=== PATIENT | male | born 1975 | race Caucasian/White ===

== ENCOUNTER → 2025-02-03 | Outpatient (CLI) | payer BC, SELFPAY ==
--- NOTE | 2025-02-03 | LES_PTH ---
PATIENT: MC JORGE LOC: [facility] U#:[id number] AGE/SX: 49/M ROOM: RE02/03/[address]: Dr. Toby Arita MD : 1975 BED: DIS: 02/03/2025 SPEC #: [id number] RECD: 02/03/25 12:51 STATUS: ANTELMO TASH #: [id number] VICKEY: 02/03/25 00:[address]: Toby Arita DEPT: SURGICAL PATHOLOGY RECD BY: Gen Lopez Tissues: A - Shoulder, NOS Procedures: Immunohistochemical Stains Surgery Specimen Level IV IHC Stain ADDITIONAL HEADER OPERATION: Right shoulder excision PRE-OP DIAGNOSIS: Melanoma insitu TISSUE SUBMITTED: A- Right shoulder melanoma insitu *1 stitch- proximal neck, 2 stitches- 3o'clock, 3 stitches - 6o'clock* MICROSCOPIC DIAGNOSIS A. Skin, right shoulder, excision: - Atypical melanocytic hyperplasia, surgical margins free. - Scar and associated changes consistent with a previous surgical procedure. - IHC for Melan-A is negative for invasive tumor. COMMENT Selected slides/images were reviewed in intradepartmental consultation by Dr Monalisa Quijano (dermatopathology division, [facility]). MICROSCOPIC DESCRIPTION Slides are reviewed. ?All matched controls reacted appropriately. These tests were developed and their performance characteristics determined by [facility]. They may not have been cleared or approved by the [place] Food and Drug Administration. The FDA has determined that such clearance or approval is not necessary.? The above immunohistochemical?markers and/or special stains have been reviewed by the Pathologist. GROSS DESCRIPTION A. Received in formalin labeled with the patient's name and date of . Designated as right shoulder melanoma in situ is a 4.2 x 2.2 cm garcia skin ellipse excised to a maximum depth of 1.3 cm and with orientation as follows: Single suture: designated as proximal/toward neck which is redesignated as 12:00 per the claudiaing PA.Double suture: designated as 3:00Triple suture: designated as 6:00 There is a 1.4 x 0.7 cm garcia-pink, slightly raised, firm lesion located the following distances from the margins:12:00: 0.8 cm 3:00: 1.3 cm 6:00: 0.9 cm9:00: 1.5 cmDeep: 1.0 cm Ink joya: 12:00 to 3:00: Green3:00 to 6:00: Yellow6:00 to 9:00: Orange9:00 to 12:00: BlueDeep: Black The specimen is serially sectioned from 3:00 to 9:00 revealing an apparent mass extends into the underlying skin to a depth of approximately 0.4 cm. There are focal areas of apparent congestion however, no deep definitive lesions are grossly appreciated. The specimen is entirely submitted, sequentially from 3:00 to 9:00 in 8 cassettes. [place] 02/04/2025PT:[id number]
--- OUTSIDE RECORDS SUMMARY | 2025-02-03 21:29 | XMS RPT_ITS | CCD ---
Author Organization [facility] Care Team Providers Care Back Shoe Worker Name Role Phone Aubrey Ulloa MD Unavailable ROBERTHDAMASO RYLEY Unavailable Unavailable Tyrese Sweet Attending Unavailable Narayan Roberto Attending Unavailable Lynette Figueroa Primary Care Unavailable Jesu Bonilla Attending Unavailable Lynette Figueroa Primary Care Unavailable Lynette Figueroa (Dermatology Nurse) Primary Care Provider [phone] Fernie León Unavailable Logan Stock Unavailable Lynette Figueroa Primary Care Provider Lynette Figueroa (Dermatology Nurse) Primary Care Provider Fernie León Unavailable Logna Stock MD Unavailable HENRY ACOSTA, LYNETTE Primary [facility] Unavailollie RAZO MD, CESAR Attending Unavailollie ACOSTA, [facility] Primary [facility] Unavaila guille RAZO MD, CESAR Attending Unavaila guille ACOSTA, [facility] Primary Care Unavailollie RAZO MD, CESAR Attending UnavailLYNETTE Frankel (RELATIONS MGR) Primary Care UnavailCHARANJIT Mars Attending Unavailable LYNETTE FIGUEROA (RELATIONS MGR) Primary Care UnavailCANDICE Wells Attending Unavailable Dr. Toby Arita MD Attending Provider Toby Arita Attending Unavailable Allergies Allergy Classification Reported Allergen(s) Allergy Type Date of Onset Reaction(s) Facility (4 sources) Acetaminophen / HYDROcodone; Translations: [HYDROCODONE-ACET AMINOPHEN] Drug Allergy 1 Nausea Only, Other (See Comments), GI Upset, Other: See Comments [facility] Work Phone: (2 sources) Acetaminophen Drug Allergy 5 Nausea [facility] (2 sources) HYDROcodone Drug Allergy 5 Nausea [facility] (1 source) Acetaminophen Drug Allergy 5 [facility] (1 source) HYDROcodone Drug Allergy 5 [facility] Medications Current Medications Medication Drug Class(es) Dates Sig (Normalized) Sig (Original) acetaminophen 500 mg oral tablet (2 sources) Start: 08-17-2020 acetaminophen (TYLENOL) tablet 1,000 mg Start: 10-18-2017 TYLENOL 325 MG CAPS take 1 to 2 tablets every 6 hours as needed ACETAMINOPHEN [id number] Aubrey Ulloa MD amoxicillin 875 mg / clavulanate 125 mg oral tablet (1 source) Penicillin-class Antibacterial Start: 04-30-2023 End: 05-10-2023 take 1 tablet by mouth every twelve hours amoxicillin-clavulanate potassium (AUGMENTIN) 875-125 mg per tablet Indications: Acute non-recurrent pansinusitis Take 1 tablet by mouth every 12 hours for 10 days. 20 tablet 0 04/30/2023 05/10/2023 Active Comment on above: Take 1 tablet by mouth every 12 hours fo r 10 days. aspirin 81 mg delayed release oral tablet (6 sources) Nonsteroidal Anti-inflammatory Drug Start: 08-16-2020 take 81 mg by mouth once daily 81 mg, Oral, DAILY, First dose on Sun08/16/20 at 0900 Start: 10-18-2017 ASPIRIN 81 MG TABS take 1 tablet daily ASPIRIN [id number] Aubrey Ulloa MD Comment on above: Take 81 mg by mouth once daily. atorvastatin 10 mg oral tablet (8 sources) HMG-CoA Reductase Inhibitor Start: 5 take 1 tablet by mouth once daily Atorvastatin 10 mg tablet Active 10 mg PO daily January 01, 2025 12:00am Start: 11-15-2016 take 1 tablet by aislinn th once daily atorvastatin (LIPITOR) 10 mg tablet Indications: Hyperlipidemia, unspecified hyperlipidemia type Take 1 tablet by mouth once daily. 0 11/15/2016 Active Comment on above: Take 1 tablet by aislinn th once daily. cetirizine hydrochloride 10 mg oral tablet (8 sources) Histamine-1 Receptor Antagonist Start: take 1 tablet by mouth once daily as needed Cetirizine (Zyrtec) 10 mg tablet Active 10 mg PO daily as needed January 01, 2025 12:00am Start: 10-18-2017 take 10 mg by mouth once daily 10 mg, Oral, DAILY, First dose on Sun08/16/20 at 0900 Comment on above: Take 10 mg by mouth once daily. cholecalciferol 0.125 mg oral capsule (7 sources) Vitamin D Start: 01-02-20 take 1 capsule by mouth once daily Cholecalciferol (Vitamin D3) 125 mcg (5,000 unit) capsule Active 125 ug PO daily January 01, 2025 12:00am Start: 10-18-2017 EQL VITAMIN D3 5000 UNIT CAPS take 1 capsule daily CHOLECALCIFEROL [id number] Aubrey Ulloa MD take 1 tablet by aislinn th once daily cholecalciferol (VITAMIN D3) 5,000 unit tab Indications: Vitamin D deficiency Take 1 tablet by mouth once daily. 0 Active Cholecalciferol (VITAMIN D3) 5000 UNITS TABS Take by mouth 0 Active Comment on above: Take 1 tablet by aislinn th once daily. clomiPHENE citrate 50 mg oral tablet (8 sources) Estrogen Agonist/Antagonist Start: 01-01-2025 Clomiphene Citrate (Clomid) 50 mg tablet Active 25 mg PO daily January 01, 2025 12:00am Start: 08-16-2020 take 25 mg by mouth once daily 25 mg, Oral, DAILY, First dose on Sun08/16/20 at 0900 Patient's own medication identified by amn. Start: 10-18-2017 CLOMIPHENE CIT RATE 50 MG TABS take half a tablet daily CLOMIPHENE CITRATE [id number] Aubrey Ulloa MD Start: 01-04-2017 take 1 tablet by aislinn th once daily clomiPHENE (SEROPHENE) 50 mg tablet Indications: Hypogonadotropic hypogonadism (HCC) Take 1 tablet by mouth once daily. 60 tablet 1 01/04/2017 Active clomiPHENE (CLOM ID) 50 MG tablet Take 25 mg by mouth daily 0 Active Comment on above: Take 1 tablet by aislinn th once daily. clotrimazole 10 mg oral lozenge (1 source) Azole Antifungal Start: 12-19-2022 End: 01-02-2023 clotrimazole (MYCELEX) 10 mg kim Indications: Oropharyngeal candidiasis Use 1 Kim as instructed five times daily for 14 days. 70 tablet 0 12/19/2022 01/02/2023 Active Comment on above: Use 1 Kim as inst ructed five times daily for 14 days. 0.4 ml enoxaparin sodium 100 mg/ml prefilled syringe (2 sources) Low Molecular Weight Heparin Start: 08-24-2020 End: 09-07-2020 enoxaparin (LOVENOX) 40 MG/0.4ML injection Inject 0.4 mLs into the skin daily for 14 days 20 Syringe 3 08/24/2020 09/07/2020 Active Start: 08-19-2020 enoxaparin (LO VENOX) injection 40 mg ibuprofen 200 mg oral tablet (2 sources) Nonsteroidal Anti-inflammatory Drug Start: 08-22-2020 take 1 tablet by mouth every six hours as needed for pain ibuprofen (ADVIL;MOTRIN) 200 MG tablet Take 1 tablet by mouth every 6 hours as needed for Pain 120 tablet 3 08/23/2020 Active melatonin 5 mg oral tablet (2 sources) Start: 08-22-2020 melatonin tablet 10 mg Start: 08-18-2020 End: 08-22-2020 melatonin tablet 3 mg 1 ml morphine sulfate 4 mg/ml injection (1 source) Opioid Agonist Start: 08-16-2020 morphine sulfa te (PF) injection 2 mg oxyCODONE hydrochloride 5 mg oral tablet (2 sources) Opioid Agonist Start: 08-17-2020 End: 08-26-2020 take 1 tablet by mouth every four hours as needed for pain oxyCODONE (ROXICODONE) 5 MG immediate release tablet Indications: Closed fracture dislocation of left ankle, initial encounter Take 1 tablet by mouth every 4 hours as needed for Pain for up to 3 days. 20 tablet 0 08/23/2020 08/26/2020 Active pantoprazole 40 mg delayed release oral tablet (7 sources) Proton Pump Inhibitor Start: 01-01-2025 take 1 tablet by mouth once daily Pantoprazole 40 mg tablet,delayed release (DR/EC) Active 40 mg PO daily January 01, 2025 12:00am Start: 09-08-2022 pantoprazole D R (PROTONIX) 40 mg tablet Start: 08-16-2020 pantoprazole ( PROTONIX) tablet 40 mg Start: 10-18-2017 PROTONIX 40 MG TBEC take 1 tablet daily PANTOPRAZOLE SODIUM [id number] Aubrey Ulloa MD polyethylene glycol 3350 36356 mg powder for oral solution (1 source) Osmotic Laxative Start: 08-16-2020 17 g, Oral, D AILY PRN, Constipation, Starting Sun08/16/20 at 0112 First line therapy for constipation Promethazine (1 source) Phenothiazine Start: 08-16-2020 promethazine ( PHENERGAN) tablet 12.5 mg 3 ml sodium chloride 9 mg/ml injection (2 sources) Start: 08-16-2020 10 mL, Intrave nous, EVERY 12 HOURS SCHEDULED (2 times per day), First dose on Sun08/16/20 at 0900 Start: 08-16-2020 take 10 mL intraveno us route once as needed 10 mL, Intravenous, PRN, Line Care, After every IV line use, Starting Sun08/16/20 at 0112 Vitamin B Complex capsule (2 sources) Start: 01-01-2025 Vitamin B Comp dinah capsule Active 1 NMA PO daily January 01, 2025 12:00am Completed/Discontinued Medications Medication Drug Class(es) Dates Sig (Normalized) Sig (Original) acetaminophen 325 mg / HYDROcodone bitartrate 5 mg oral tablet (1 source) Opioid Agonist Start: 08-16-2020 End: 08-17-2020 HYDROcodone-acetami nophen (NORCO) 5-325 MG per tablet 1 tablet ceFAZolin (ANCEF) 3,000 mg in dextrose 5 % 100 mL IVPB (1 source) Start: 08-18-2020 End: 08-19-2020 3,000 mg, Intravenous, EVERY 8 HOURS, 2 doses, First dose on Sun08/18/20 at 1600, Last dose on Sun08/19/20 at 0000 coenzyme q10 10 mg oral capsule (5 sources) Start: 10-18-2017 COQ-10 10 MG CAPS take 1 capsule daily COENZYME Q10 [id number] Aubrey Ulloa MD coenzyme Q10 (CO ENZYME Q-10) 100 mg cap capsule Take 400 mg by mouth once daily. 0 Active Comment on above: Take 400 mg by mouth once daily. 2 ml fentaNYL 0.05 mg/ml injection (2 sources) Opioid Agonist Start: 08-15-19 End: 08-15-19 fentaNYL (SUBLIMAZE) injection 50 mcg fluticasone propionate 0.05 mg/actuat metered dose nasal spray (3 sources) Corticosteroid take 1 spray(s) nasal route twice daily fluticasone (FLONASE) 50 mcg/actuation nasal spray Use 1 Loyal in each nostril twice daily. 0 Active Comment on above: Use 1 Loyal in each nostril twice daily. folic acid 0.8 mg oral capsule (5 sources) Start: 10-19-19 FOLIC ACID 0.8 MG CAPS take 1 capsule daily FOLIC ACID [id number] Aubrey Ulloa MD Comment on above: Take 0.8 mg by mouth once daily. 10 ml lidocaine hydrochloride 10 mg/ml injection (1 source) Antiarrhythmic, Amide Local Anesthetic Start: 08-15-19 End: 08-17-19 lidocaine 1 % injection 20 mL 1 ml LORazepam 2 mg/ml injection (1 source) Benzodiazepine Start: 08-19-19 End: 08-19-19 LORazepam (ATIVAN) injection 0.5 mg 2 ml midazolam 1 mg/ml injection (1 source) Benzodiazepine Start: 08-19-19 End: 08-19-19 midazolam (VERSED) injection 2 mg prasterone 50 mg oral tablet (4 sources) take 1 tablet by mouth once daily prasterone, dhea, (DHEA) 50 mg tab Take 50 mg by mouth once daily. 0 Active Comment on above: Take 50 mg by mouth once daily. PRASTERONE (DHEA) CAPS (1 source) Start: 10-19-19 DHEA 50 CAPS take 1 capsule daily PRASTERONE (DHEA) CAPS [id number] Aubrey Ulloa MD 20 ml propofol 10 mg/ml injection (2 sources) General Anesthetic Start: 08-15-19 End: 08-15-19 propofol injection Start: 08-15-2020 End: 08-15-2020 propofol 200 MG/20ML injecti on vitamin B 12 (5 sources) Vitamin B12 Start: 10-18-2017 B-12 5000 MCG CAPS take 1 capsule daily CYANOCOBALAMIN [id number] Aubrey Ulloa MD take 1 tablet by mouth once david y cyanocobalamin, vitamin B-12, 5,000 mcg subl Take 1 tablet by mouth once daily. 0 Active Cyanocobalamin ( VITAMIN B 12 PO) Take by mouth 0 Active Comment on above: Take 1 tablet by aislinn th once daily. Problems Active Problems Problem Classification Problem Date Documented Da te Episodic/Chronic Acquired foot deformities (1 source) Other acquired deformities of right foot; Translations: [Other acquired deformities of right foot] Onset: 10-18-2017 10-18-2017 Episodic Disorders of lipid metabolism (3 sources) Hyperlipidemia; Translations: [Hyperlipidemia, unspecified] 01-04-2017 Chronic Essential hypertension (1 source) Hypertensive disorder; Translations: [Hypertension] 11-10-2016 Chronic Fracture of lower limb (2 sources) Closed fracture dislocation of ankle joint; Translations: [Closed trimalleolar fracture] 08-23-2020 Episodic Joint disorders and dislocations; trauma-related (1 source) Closed traumatic dislocation ankle joint; Translations: [Dislocation of ankle, left, closed, initial encounter] Onset: 08-23-2020 08-23-2020 Episodic Melanomas of skin (2 sources) Melanoma in situ, unspecified; Translations: [Melanoma in situ] 01-01-2025 Chronic Comment on above: Right neck/shoulder Other congenital anomalies (1 source) Pes cavus; Translations: [Congenital pes cavus] Onset: 10-18-2017 10-18-2017 Chronic Other connective tissue disease (1 source) Plantar fasciitis; Translations: [Plantar fascial fibromatosis] Onset: 10-18-2017 10-18-2017 Episodic Other connective tissue disease (2 sources) Rupture of patellar tendon; Translations: [Patellar tendon rupture, right, initial encounter] 08-18-2020 Episodic Other endocrine disorders (3 sources) Male hypogonadism; Translations: [Testicular hypofunction] 01-04-2017 Chronic Other non-traumatic joint disorders (2 sources) Disorder of ankle joint; Translations: [Ankle syndesmosis disruption, left, initial encounter] Onset: 08-15-2020 08-18-2020 Episodic Other nutritional; endocrine; and metabolic disorders (3 sources) Obesity; Translations: [Obesity, unspecified] 01-04-2017 Chronic Other upper respiratory infections (2 sources) Acute pansinusitis; Translations: [Acute pansinusitis, unspecified] Onset: 04-30-2023 04-30-2023 Episodic Sandra-; endo-; and myocarditis; cardiomyopathy (except that caused by tuberculosis or sexually transmitted disease) (4 sources) Myocarditis; Translations: [Myocarditis, unspecified] Onset: 04-18-2014 01-04-2017 Chronic Unclassified (1 source) Congenital metatarsus adductus; Translations: [Congenital metatarsus adductus] Onset: 10-18-2017 10-18-2017 Unclassified (2 sources) LACERATION TO RIGHT FOREARM FROM DOG BITE Onset: 01-04-2018 Past or Other Problems Problem Classification Problem Date Documented Da te Episodic/Chronic Mycoses (2 sources) Candidiasis of mouth; Translations: [Candidal stomatitis] Onset: 12-19-2022 Episodic Unclassified (1 source) Problem Results Test Name Value Interpretation Reference Range Facility Plastic Surgery Visit Report on 01-01-2025 Plastic Surgery Visit Report [facility] Plastic Reconstructive Surgery [address], [address] [place] [address] OFFICE VISIT Date of Service: 01/01/25 MR#: [id number] Acct: [id number] Name: MC JORGE Rep #: [id number] : 1975 Provider: Dr. Toby Arita MD Age/Sex: 49/M Location: [facility] Status: Signed Intake Vital Signs 3 01/01/25 11:05 Height 6 ft 1 in Weight: 319 lb BMI 42.0 BP 116/78 Blood Pressure Location Rt brachial Position Sitting Respiration 18 Pulse 85 Pulse Source Monitor Temp 97.6 F L Temp Source Temporal Pulse Oximetry (%) 98 Oxygen Delivery Method room air Intake Visit Reasons: Melanoma Chief Complaint: consult right clavical lesion Home Health Lpn Required: No Accompanied by: Self Is patient in pain?: No Allergies acetaminophen (From Vicodin) Adverse Reaction (Verified 01/01/25 11:03) Nausea hydrocodone (From Vicodin) Adverse Reaction (Verified 01/01/25 11:03) Nausea Medications 3 ???Medication ???Instructions ???Recorded ???Confirmed ???Type atorvastatin 10 mg tablet 10 mg PO QDAY 01/01/25 01/01/25 Hi story cetirizine 10 mg tablet (Zyrtec) 10 mg PO QDAY PRN 01/01/25 5 History cholecalciferol (vitamin D3) 125 125 mcg PO QDAY 01/01/25 01/01/25 History mcg (5,000 unit) capsule clomiphene citrate 50 mg tablet 25 mg PO QDAY 01/01/25 01/01/25 Hi story (Clomid) pantoprazole 40 mg tablet,delayed 40 mg PO QDAY 01/01/25 01/01/25 H istory release vitamin B complex 1 cap PO QDAY 01/01/25 01/01/25 Hi story PFSH Medical History Thyroid cancer Skin cancer GERD (gastroesophageal reflux disease) Thyroid disease High triglycerides Cancer Bone fracture Surgical History History of thyroid surgery H/O cardiac catheterization Family History Other Alcoholism Anxiety Arthritis Diabetes Heart disease High cholesterol Hypertension Social History Smoking Status: Never smoker alcohol intake: current substance use type: does not use HPI Malignant melanoma of skin Details: The patient is a 49-year-old male presenting for 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 The lesion was initially noted by Dr. Fish during a total body review a couple of years ago and was deemed non-concerning at that time. Recently, Dr. Fish observed changes in the lesion located on the right preclavicular area, prompting a biopsy which confirmed melanoma in situ, lentigo maligna subtype. The patient has a history of thyroid cancer, which was discovered incidentally during surgery for overactive parathyroids in 2018. During the surgery, half of the thyroid was removed along with the left parathyroids. The patient reports no current issues related to thyroid function. The patient also has a history of esophageal spasm, initially misdiagnosed as a heart attack in 2000 and 2013. This was later confirmed via endoscopy, and the patient is currently managed on medication. In addition, the patient experienced a right patellar tendon tear and a left ankle fracture a few years ago during a scouting event. He was immobilized for eight weeks but has since recovered. ros: - General: Denies headaches - Lymphatic: Denies cervical and axillary lymphadenopathy - Cardiovascular: Denies history of heart attack - Endocrine: Denies current thyroid issues Attestation: Documentation on this patient encounter was supported using ambient scribe technology/ voice AI technology. The patient consented to recording for the purpose of documenting the encounter. Provider reviewed content of the generated note prior to signature. ROS General General: Yes good health; No fatigue HENMT HENMT: No rhinitis, sore throat/mouth sore, contacts or glaucoma Endo Endocrine: No thyroid disease, polydipsia, heat intolerance, cold intolerance or hepatitis Skin Skin: No bruising or changing moles Musc Musculoskeletal: No joint pain, joint stiffness, muscle weakness, back pain or osteoarthritis Neuro Neurological: No headache(s) and No lightheadedness Cardio Cardiovascular: No chest pain, pacemaker or fatigue Psych Psychiatric: No depression or claustrophobia Resp Respiratory: Yes sleep apnea; No spitting up, shortness of breath, asthma, emphysema or TB Gastro Gastrointestinal: No diarrhea, constipation or blood in stool Ap Hematologic: No anemia Genitourinary: No urinary frequency, blood in urine or incontinence Exam Details - Lymphatic: No cervical or axillary lymphadenopathy noted on examination Right neck/sh (more content not included)... Normal [facility] CBC (H/H, RBC, INDICES, WBC, PLT)on 03-31-2024 Erythrocyte distribution width (RBC) [Ratio] 14.0 % Normal 11.0-15.0 [facility] Comment on above: Performed By: #### 5 498, 367, 3719, 5163, 21065, 374 #### [facility] [address], [address] [place] [id number] Laborer [place]: Declan Navarrete MD #### [id number] #### [facility] [address] [place] [address] Laborer [place]: Miguel Patrick M.D.,PhD Hematocrit (Bld) [Volume fraction] 41.2 % Normal 38.5-50.0 [facility] Comment on above: Performed By: #### 5 480, 573, 1750, 8990, 51468, 374 #### [facility] [address], [address] [place] [address] Laborer [place]: Declan Navarrete MD #### [id number] #### [facility] [address] [facility] [place], [place] Laborer [place]: Miguel Patrick M.D.,PhD Hemoglobin (Bld) [Mass/Vol] 13.9 g/dL Normal 13.2-17.1 [facility] Comment on above: Performed By: #### 5 363, 899, 1759, 7600, 84372, 374 #### [facility] [address], [address] [place], [place] [id number] Laborer [place]: Declan Navarrete MD #### [id number] #### [facility]/[address] [place], [place] Laborer [place]: Miguel Patrick M.D.,PhD MCH (RBC) [Entitic mass] 32.3 pg Normal 27.0-33.0 [facility] Comment on above: Performed By: #### 5 363, 899, 1759, 7600, 64966, 374 #### [facility] [address] Laborer [place]: Declan Navarrete MD #### [id number] #### [facility]/[address] [place], [place] Laborer [place]: Miguel Patrick M.D.,PhD MCHC (RBC) [Mass/Vol] 33.7 g/dL Normal 32.0-36.0 [facility] Comment on above: Result Comment: For adults, a slight decrease in the calculated MCHC value (in the range of 30 to 32 g/dL) is most likely not clinically significant; however, it should be interpreted with caution in correlation with other red cell parameters and the patient's clinical condition. Performed By: #### 5 363, 899, 1759, 7600, 96189, 374 #### [facility] of [address], [address] [place] [address] Laborer [place]: Declan Navarrete MD #### [id number] #### [facility] [place], [place] Laborer [place]: Miguel Patrick M.D.,PhD MCV (RBC) [Entitic vol] 95.6 fL Normal 80.0-100.0 [facility] Comment on above: Performed By: #### 5 363, 899, 1759, 7600, 77006, 374 #### [facility] of [address], [address] [place] [address] Laborer [place]: Declan Navarrete MD #### [id number] #### [facility] [place] Laborer [place]: Miguel Patrick M.D.,PhD Platelet mean volume (Bld) [Entitic vol] 11.7 fL Normal 7.5-12.5 [facility] Comment on above: Performed By: #### 5 363, 899, 1759, 7600, 17436, 374 #### [facility] of [address], [address] [place] [address] Laborer [place]: Declan Navarrete MD #### [id number] #### [facility] [place] Laborer [place]: Miguel Patrick M.D.,PhD Platelets (Bld) [#/Vol] 204 10*3/uL Normal 140-400 [facility] Comment on above: Performed By: #### 5 363, 899, 1759, 7600, 70368, 374 #### [facility] of [address], [address] [place] [address] Laborer [place]: Declan Navarrete MD #### [id number] #### [facility] [address] [place] Laborer [place]: Miguel Patrick M.D.,PhD RBC (d) [#/Vol] 4.31 10*6/uL Normal 4.20-5.80 [facility] Comment on above: Performed By: #### 5 363, 899, 1759, 7600, 47384, 374 #### [facility] of [address], [address] [place], [place] [id number] Laborer [place]: Declan Navarrete MD #### [id number] #### [facility]/[address] [place], [place] Laborer [place]: Miguel Patrick M.D.,PhD WBC (d) [#/Vol] 5.7 10*3/uL Normal 3.8-10.8 [facility] Comment on above: Performed By: #### 5 363, 899, 1759, 7600, 84160, 374 #### [facility] [address], [address] [place], [place] [id number] Laborer [place]: Declan Navarrete MD #### [id number] #### [facility]/[address] [place], [place] Laborer [place]: Miguel Patrick M.D.,PhD [facility] [place] 03-31-2024 Albumin [Mass/Vol] 4.1 g/dL Normal 3.6-5.1 [facility] Comment on above: Performed By: #### 5 363, 899, 1759, 7600, 95565, 374 #### [facility] of [address], [address] [place], [place] [id number] Laborer [place]: Declan Navarrete MD #### [id number] #### [facility]/[place] [id number] [facility] [place], [place] Laborer [place]: Miguel Patrick M.D.,PhD Albumin/Globulin [Mass ratio] 1.6 {ratio} Normal 1.0-2.5 [facility] Comment on above: Performed By: #### 5 363, 899, 1759, 7600, 64495, 374 #### [facility] of [place] [address], [address] [place], [place] Laborer [place]: Declan Navarrete MD #### [id number] #### [facility] [place], [place] Laborer [place]: Miguel Patrick M.D.,PhD ALP [Catalytic activity/Vol] 61 U/L Normal 36-130 [facility] Comment on above: Performed By: #### 5 363, 899, 1759, 7600, 13288, 374 #### [facility] of [address], [address] [place] [address] Laborer [place]: Declan Navarrete MD #### [id number] #### [facility] [place] Laborer [place]: Miguel Patrick M.D.,PhD ALT [Catalytic activity/Vol] 38 U/L Normal 9-46 [facility] Comment on above: Performed By: #### 5 363, 899, 1759, 7600, 32617, 374 #### [facility] of [address], [address] [place] [address] Laborer [place]: Declan Navarrete MD #### [id number] #### [facility] [address] [place] Laborer [place]: Miguel Patrick M.D.,PhD AST [Catalytic activity/Vol] 34 U/L Normal 10-40 [facility] Comment on above: Performed By: #### 5 363, 899, 1759, 7600, 86967, 374 #### [facility] of [address], [address] [place] [address] Laborer [place]: Declan Navarrete MD #### [id number] #### [facility] [address] [place] Laborer [place]: Miguel Patrick M.D.,PhD Bilirubin [Mass/Vol] 0.9 mg/dL Normal 0.2-1.2 [facility] Comment on above: Performed By: #### 5 363, 899, 1759, 7600, 68175, 374 #### [facility] of [address], [address] [place], [place] [id number] Laborer [place]: Declan Navarrete MD #### [id number] #### [facility]/[address] [place], [place] Laborer [place]: Miguel Patrick M.D.,PhD BUN/CREATININE RATIO SEE NOTE: Normal 6-22 [facility] Comment on above: Result Comment: Not Reported: BUN and Creatinine are within reference range. Performed By: #### 5 363, 899, 1759, 7600, 90007, 374 #### [facility] [address], [address] [place], [place] [id number] Laborer [place]: Declan Navarrete MD #### [id number] #### [facility]/[address] [place], [place] Laborer [place]: Miguel Patrick M.D.,PhD Calcium [Mass/Vol] 9.4 mg/dL Normal 8.6-10.3 [facility] Comment on above: Performed By: #### 5 363, 899, 1759, 7600, 00179, 374 #### [facility] [address], [address] [place], [place] [id number] Laborer [place]: Declan Navarrete MD #### [id number] #### [facility]/[address] [place], [place] Laborer [place]: Miguel Patrick M.D.,PhD Chloride [Moles/Vol] 107 mmol/L Normal 98-110 [facility] Comment on above: Performed By: #### 5 363, 899, 1759, 7600, 36900, 374 #### [facility] [address], [address] [place] [address] Laborer [place]: Declan Navarrete MD #### [id number] #### [facility]/[place] [id number] [facility] [address] [place] Laborer [place]: Miguel Patrick M.D.,PhD CO2 [Moles/Vol] 15 mmol/L Low 20-32 [facility] Comment on above: Result Comment: [place] ection tube is incompletely filled. CO2 result may be decreased. Performed By: #### 5 363, 899, 1759, 7600, 57574, 374 #### [facility] of [address], [address] [place] [address] Laborer [place]: Declan Navarrete MD #### [id number] #### [facility]/[place] [id number] [facility] [address] [place] Laborer [place]: Miguel Patrick M.D.,PhD Creatinine [Mass/Vol] 0.94 mg/dL Normal 0.60-1.29 [facility] Comment on above: Performed By: #### 5 363, 259, 1759, 4950, 32580, 374 #### [facility] [address], [address] [place] [address] Laborer [place]: Declan Navarrete MD #### [id number] #### [facility]/[place] [id number] [facility] [address] [place] Laborer [place]: Miguel Patrick M.D.,PhD GFR/1.73 sq M.predicted among non-blacks MDRD (S/P/Bld) [Vol rate/Area] 99 mL/min/{1.73_m2} Normal > OR = 60 [facility] Comment on above: Performed By: #### 5 363, 829, 1759, 7600, 64914, 374 #### [facility] [place] [address] [place] , [address] [place] [address] Laborer [place]: Declan Navarrete MD #### [id number] #### [facility]/[place] [id number] [facility] [address] [place] Laborer [place]: Miguel Patrick M.D.,PhD Globulin (S) [Mass/Vol] 2.5 g/dL Normal 1.9-3.7 [facility] Comment on above: Performed By: #### 5 363, 899, 1759, 7600, 57350, 374 #### [facility] [address], [address] [place], [place] [id number] Laborer [place]: Declan Navarrete MD #### [id number] #### [facility]/[address] [place], [place] Laborer [place]: Miguel Patrick M.D.,PhD Glucose [Mass/Vol] 80 mg/dL Normal 65-99 [facility] Comment on above: Result Comment: Fasting reference interval Performed By: #### 5 363, 899, 1759, 7600, 03579, 374 #### [facility] [place] [id number] Laborer [place]: Declan Navarrete MD #### [id number] #### [facility]/[address] [place], [place] Laborer [place]: Miguel Patrick M.D.,PhD Potassium [Moles/Vol] 4.7 mmol/L Normal 3.5-5.3 [facility] Comment on above: Performed By: #### 5 363, 899, 1759, 7600, 82386, 374 #### [facility] [address], [address] [place], [place] [id number] Laborer [place]: Declan Navarrete MD #### [id number] #### [facility]/[address] [place], [place] Laborer [place]: Miguel Patrick M.D.,PhD Protein [Mass/Vol] 6.6 g/dL Normal 6.1-8.1 [facility] Comment on above: Performed By: #### 5 363, 899, 1759, 7600, 93057, 374 #### [facility] [place] [address] [place] , [address] [place], [place] [id number] Laborer [place]: Declan Navarrete MD #### [id number] #### [facility]/[address] [place], [place] Laborer [place]: Miguel Patrick M.D.,PhD Sodium [Moles/Vol] 139 mmol/L Normal 135-146 [facility] Comment on above: Performed By: #### 5 363, 899, 1759, 7600, 41562, 374 #### [facility] of [address], [address] [place], [place] [id number] Laborer [place]: Declan Navarrete MD #### [id number] #### [facility]/[place] [id number] [facility] [place], [place] Laborer [place]: Miguel Patrick M.D.,PhD Urea nitrogen [Mass/Vol] 16 mg/dL Normal 7-25 [facility] Comment on above: Performed By: #### 5 363, 899, 1759, 7600, 49743, 374 #### [facility] of [address], [address] [place], [place] [id number] Laborer [place]: Declan Navarrete MD #### [id number] #### [facility] [place], [place] Laborer [place]: Miguel Patrick M.D.,PhD CREATINE KINASE, [facility] CREATINE KINASE, TOTAL 118 U/L Normal 44-196 [facility] Comment on above: Performed By: #### 5 363, 899, 1759, 7600, 15416, 374 #### [facility] of [address], [address] [place] [address] Laborer [place]: Declan Navarrete MD #### [id number] #### [facility] [address] [place] Laborer [place]: Miguel Patrick M.D.,PhD LIPID PANEL, [facility] 03-18 Cholesterol [Mass/Vol] 136 mg/dL Normal <200 [facility] Comment on above: Order Comment: FASTI NG:YES FASTING: YES Performed By: #### 5 363, 899, 1759, 7600, 98260, 374 #### [facility] [address], [address] [place] [address] Laborer [place]: Declan Navarrete MD #### [id number] #### [facility]/[address] [place], [place] Laborer [place]: Miguel Patrick M.D.,PhD Cholesterol in HDL [Mass/Vol] 30 mg/dL Low > OR = 40 [facility] Comment on above: Order Comment: FASTI NG:YES FASTING: YES Performed By: #### 5 363, 899, 1759, 7600, 87919, 374 #### [facility] [address], [address] [place] [address] Laborer [place]: Declan Navarrete MD #### [id number] #### [facility]/[address] [place], [place] Laborer [place]: Miguel Patrick M.D.,PhD Cholesterol in LDL [Mass/Vol] 78 mg/dL Normal [facility] Comment on above: Order Comment: FASTI NG:YES FASTING: YES Result Comment: Refe rence range: <100 Desirable range <100 mg/dL for primary prevention; <70 mg/dL for patients with CHD or diabetic patients with > or = 2 CHD risk factors. LDL-C is now calculated using the Fernie-Harsh calculation, which is a validated novel method providing better accuracy than the Friedewald equation in the estimation of LDL-C. Fernie SS et al. DHARMESH. 2013;310(19): 4530-9583 (http://education.[employer].Tinkercad/faq/UPA963) Performed By: #### 5 363, 899, 1759, 7600, 80531, 374 #### [facility] [address], [address] [place], [place] [id number] Laborer [place]: Declan Navarrete MD #### [id number] #### [facility] [place], [place] Laborer [place]: Miguel Patrick M.D.,PhD Cholesterol.total /Cholesterol in HDL [Mass ratio] 4.5 {ratio} Normal <5.0 [facility] Comment on above: Order Comment: FASTI NG:YES FASTING: YES Performed By: #### 5 363, 899, 1759, 7600, 19962, 374 #### [facility] [place] [address] [facility], [address] [place] [address] Laborer [place]: Declan Navarrete MD #### [id number] #### [facility] [place] Laborer [place]: Miguel Patrick M.D.,PhD NON HDL CHOLESTEROL 106 mg/dL (calc) Normal <130 [facility] Comment on above: Order Comment: FASTI NG:YES FASTING: YES Result Comment: For patients with diabetes plus 1 major ASCVD risk factor, treating to a non-HDL-C goal of <100 mg/dL (LDL-C of <70 mg/dL) is considered a therapeutic option. Performed By: #### 5 363, 899, 1759, 7600, 89435, 374 #### [facility] [place] [address] [facility], [address] [place] [address] Laborer [place]: Declan Navarrete MD #### [id number] #### [facility] [id number] [place] [address] [place], [place] Laborer [place]: Miguel Patrick M.D.,PhD Triglyceride [Mass/Vol] 181 mg/dL High <150 [facility] Comment on above: Order Comment: FASTI NG:YES FASTING: YES Performed By: #### 5 363, 899, 1759, 7600, 15067, 374 #### [facility] [place] [address] [facility], [address] [place] [address] Laborer [place]: Declan Navarrete MD #### [id number] #### [facility] [address] [facility] [address] [place] Laborer [place]: Miguel Patrick M.D.,PhD PSA, TOTAL 03-31-2024 PSA, TOTAL 2.78 ng/mL Normal < OR = 4.00 [facility] Comment on above: Result Comment: The total PSA value from this assay system is standardized against the WHO standard. The test result will be approximately 20% lower when compared to the equimolar-standardized total PSA (Juan David [place]). Comparison of serial PSA results should be interpreted with this fact in mind. This test was performed using the Siemens chemiluminescent method. Values obtained from different assay methods cannot be used interchangeably. PSA levels, regardless of value, should not be interpreted as absolute evidence of the presence or absence of disease. Performed By: #### 5 363, 899, 1759, 7600, 53300, 374 #### [facility] [address], [address] [place] [id number] Laborer [place]: Declan Navarrete MD #### [id number] #### [facility] [address] [facility] [address] [place] Laborer [place]: Miguel Patrick M.D.,PhD TESTOSTERONE, FREE (DIALYSIS ) AND TOTAL,MSon 03-31-2024 TESTOSTERONE, FREE 59.2 pg/mL Normal 35.0-155.0 [facility] Comment on above: Result Comment: This test was developed and its analytical performance characteristics have been determined by [facility] [place], [place]. It has not been cleared or approved by the U.S. Food and Drug Administration. This assay has been validated pursuant to the CLIA regulations and is used for clinical purposes. Performed By: #### 5 363, 899, 1759, 7600, 59803, 374 #### [facility] [address], [address] [place] [address] Laborer [place]: Declan Navarrete MD #### [id number] #### [facility] [place], [place] Laborer [place]: Miguel Patrick M.D.,PhD TESTOSTERONE, TOTAL, MS 329 ng/dL Normal 250-1100 [facility] Comment on above: Result Comment: For additional information, please refer to http://education.[employer]/faq/ UmmuuIrpzuttudsnyMBBNWMKYD039 (This link is being provided for informational/ educational purposes only.) This test was developed and its analytical performance characteristics have been determined by [facility] [place], [place]. It has not been cleared or approved by the U.S. Food and Drug Administration. This assay has been validated pursuant to the CLIA regulations and is used for clinical purposes. Performed By: #### 5 363, 899, 1759, 7600, 65450, 374 #### [facility] [address] Laborer [place]: Declan Navarrete MD #### [id number] #### [facility]/[address] [place], [place] Laborer [place]: Miguel Patrick M.D.,PhD TSHon 03-31-2024 TSH Qn 2.63 m[IU]/L Normal 0.40-4.50 [facility] Comment on above: Performed By: #### 5 363, 899, 1759, 7600, 10968, 374 #### [facility] [address] Laborer [place]: Declan Navarrete MD #### [id number] #### [facility]/[address] [place], [place] Laborer [place]: Miguel Patrick M.D.,PhD CNOVon 04-30-2023 CNOV Office Visit ([facility] ) MC JORGE ([id number]) 1975 M Date Time Provider Department 04/30/23 2:35 PM CHARANJIT DOMINGUEZ [facility] During your visit today, we recorded the following information about you: Temperature Pulse Respiration Blood pressure 98.2 degrees 108/minute 18/minute 138/82 Weight 140.6 kg Charanjit Dominguez MD 04/30/2023 3:10 PM Signed Mc Jorge is a 47 year old male who presents with Cough (Coughing up yellow mucus for 1 week ), Sinusitis (Chest congestion face pressure drainage for 1 week ), and Sore Throat (Sore throat hard to swallow for 1 week ) The history is provided by the patient. No manufacturing clerk was used. Cough This is a new problem. The current episode started more than 1 week ago. The problem occurs constantly. The problem has been gradually worsening. The cough is Productive of purulent sputum. There has been no fever. Associated symptoms include ear congestion, headaches and sore throat. Pertinent negatives include no chills, no ear pain, no myalgias, no shortness of breath and no wheezing. He has tried decongestants for the symptoms. The treatment provided mild relief. Sinusitis Associated symptoms include congestion, coughing, headaches and a sore throat. Pertinent negatives include no chills, ear pain or shortness of breath. Sore Throat Associated symptoms include congestion, coughing and headaches. Pertinent negatives include no ear pain or shortness of breath. PAST MEDICAL HISTORY Diagnosis Date Allergic rhinitis Hyperlipidemia Hypogonadism, male Myocarditis (HCC) 04/2014 Obesity Vitamin B12 deficiency ACTIVE PROBLEM LIST Obesity Myocarditis (Hcc) Hypogonadism, Male Hyperlipidemia Current Outpatient Medications Medication Sig Dispense Refill pantoprazole DR (PROTONIX) 40 mg tablet atorvastatin (LIPITOR) 10 mg tablet Take 1 tablet by mouth once daily. cetirizine (ZYRTEC) 10 mg tablet Take 10 mg by mouth once daily. folic acid 0.8 mg cap Take 0.8 mg by mouth once daily. coenzyme Q10 (COENZYME Q-10) 100 mg cap capsule Take 400 mg by mouth once daily. prasterone, dhea, (DHEA) 50 mg tab Take 50 mg by mouth once daily. cholecalciferol (VITAMIN D3) 5,000 unit tab Take 1 tablet by mouth once daily. cyanocobalamin, vitamin B-12, 5,000 mcg subl Take 1 tablet by mouth once daily. clomiPHENE (SEROPHENE) 50 mg tablet Take 1 tablet by mouth once daily. 60 tablet 1 aspirin, enteric coated (ASPIRIN, ENTERIC COATED) 81 mg EC tablet Take 81 mg by mouth once daily. (Patient not taking: Reported on 12/19/2022) fluticasone (FLONASE) 50 mcg/actuation nasal spray Use 1 Loyal in each nostril twice daily. (Patient not taking: Reported on 12/19/2022) No current facility-administered medications for this visit. Social History Tobacco Use Smoking status: Never Smokeless tobacco: Never Vaping Use Vaping Use: Never used Substance Use Topics Alcohol use: Yes Comment: rare Drug use: No Alcohol Use: Yes (rare) Tobacco Use: Never FAMILY HISTORY Problem Relation Age of Onset other (Lupus) Mother Diabetes Father Review of Systems Constitutional: Negative for chills, fever and malaise/fatigue. HENT: Positive for congestion, sinus pain and sore throat. Negative for ear pain. Respiratory: Positive for cough and sputum production. Negative for shortness of breath and wheezing. Musculoskeletal: Negative for myalgias. Neurological: Positive for headaches. Negative for dizziness. BP 138/82 Pulse 108 Temp (Src) 98.2 (Oral) Resp 18 Wt 310 lb (140.6kg) SpO2 97% Physical Exam Vitals and nursing note reviewed. Constitutional: Appearance: Normal appearance. He is not ill-appearing. HENT: Head: Comments: Frontal and maxillary sinus tenderness bilaterally Right Ear: Tympanic membrane normal. Left Ear: Tympanic membrane normal. Nose: Congestion and rhinorrhea present. Mouth/Throat: Mouth: Mucous membranes are moist. Pharynx: Oropharynx is clear. Eyes: Extraocular Movements: Extraocular movements intact. Conjunctiva/sclera: Conjunctivae normal. Pupils: Pupils are equal, round, and reactive to light. Cardiovascular: Rate and Rhythm: Normal rate and regular rhythm. Heart sounds: Normal heart sounds. Pulmonary: Effort: Pulmonary effort is normal. Breath sounds: Normal breath sounds. Lymphadenopathy: Cervical: Cervical adenopathy present. Skin: General: Skin is warm and dry. Neurological: General: No focal deficit present. Mental Status: He is alert and oriented to person, place, and time. ASSESSMENT/PLAN: 1. Acute non-recurrent pansinusitis - ICD9: 461.8, ICD10: J01.40 - Supportive care with plenty of fluids, rest, and analgesia prn. - AMOXICILLIN 875 MG-POTASSIUM CLAVULANATE 125 MG TABLET MD Yasir Marley Marsha M, MD 04/30/2023 3:00 PM Signed SINUSITIS: You have sinusit (more content not included)... [facility] CNOVon 12-19-2022 CNOV Office Visit ([facility] ) MC JORGE ([id number]) 1975 M Date Time Provider Department 12/19/22 9:55 AM CANDICE REHMAN [facility] During your visit today, we recorded the following information about you: Temperature Pulse Respiration Blood pressure 97 degrees 91/minute 16/minute 132/86 Weight Height 144.5 kg 1.88 m Candice Rehman MD 12/19/2022 11:00 AM Signed Mc Kong Rigo is a 47 year old male who presents with Sore Throat (States he feels like he has a coating on his throat and tongue. ) and Headache HPI patient is a 47-year-old male who presented to [facility] this morning with a complaint of the sore throat and white coating on his tongue and throat with slightly headache the symptoms started 2 weeks ago patient tried [id number] medication without relief and due to concern to patient here for further evaluation and treatment. PAST MEDICAL HISTORY Diagnosis Date Allergic rhinitis Hyperlipidemia Hypogonadism, male Myocarditis (HCC) 04/2014 Obesity Vitamin B12 deficiency ACTIVE PROBLEM LIST Obesity Myocarditis (Hcc) Hypogonadism, Male Hyperlipidemia Current Outpatient Medications Medication Sig Dispense Refill pantoprazole DR (PROTONIX) 40 mg tablet atorvastatin (LIPITOR) 10 mg tablet Take 1 tablet by mouth once daily. cetirizine (ZYRTEC) 10 mg tablet Take 10 mg by mouth once daily. cholecalciferol (VITAMIN D3) 5,000 unit tab Take 1 tablet by mouth once daily. cyanocobalamin, vitamin B-12, 5,000 mcg subl Take 1 tablet by mouth once daily. clomiPHENE (SEROPHENE) 50 mg tablet Take 1 tablet by mouth once daily. 60 tablet 1 clotrimazole (MYCELEX) 10 mg kim Use 1 Kim as instructed five times daily for 14 days. 70 tablet 0 folic acid 0.8 mg cap Take 0.8 mg by mouth once daily. (Patient not taking: Reported on 12/19/2022) coenzyme Q10 (COENZYME Q-10) 100 mg cap capsule Take 400 mg by mouth once daily. (Patient not taking: Reported on 12/19/2022) prasterone, dhea, (DHEA) 50 mg tab Take 50 mg by mouth once daily. (Patient not taking: Reported on 12/19/2022) aspirin, enteric coated (ASPIRIN, ENTERIC COATED) 81 mg EC tablet Take 81 mg by mouth once daily. (Patient not taking: Reported on 12/19/2022) fluticasone (FLONASE) 50 mcg/actuation nasal spray Use 1 Loyal in each nostril twice daily. (Patient not taking: Reported on 12/19/2022) No current facility-administered medications for this visit. Social History Tobacco Use Smoking status: Never Smokeless tobacco: Never Vaping Use Vaping Use: Never used Substance Use Topics Alcohol use: Yes Comment: rare Drug use: No Alcohol Use: Yes (rare) Tobacco Use: Never FAMILY HISTORY Problem Relation Age of Onset other (Lupus) Mother Diabetes Father Review of Systems Constitutional: Negative for chills, fever, malaise/fatigue and weight loss. HENT: Negative for congestion and sinus pain. Respiratory: Negative for cough and shortness of breath. Cardiovascular: Negative for chest pain and palpitations. Gastrointestinal: Negative for abdominal pain, heartburn, nausea and vomiting. Musculoskeletal: Negative for myalgias. Skin: Negative for rash. Neurological: Negative for dizziness. BP 132/86 Pulse 91 Temp (Src) 97 (Temporal) Resp 16 Ht 6' 2 (1.88m) Wt 318 lb 9.6 oz (144.5kg) SpO2 97% BMI 40.89 kg/(m2). Physical Exam Vitals and nursing note reviewed. Constitutional: General: He is not in acute distress. Appearance: Normal appearance. HENT: Right Ear: Tympanic membrane and ear canal normal. Left Ear: Tympanic membrane and ear canal normal. Nose: Nose normal. No congestion or rhinorrhea. Mouth/Throat: Mouth: Mucous membranes are moist. Comments: Right and left buccal mucosa and tongue white cheeselike material coating Eyes: Extraocular Movements: Extraocular movements intact. Conjunctiva/sclera: Conjunctivae normal. Pupils: Pupils are equal, round, and reactive to light. Cardiovascular: Rate and Rhythm: Regular rhythm. Heart sounds: Normal heart sounds. Pulmonary: Effort: Pulmonary effort is normal. Breath sounds: Normal breath sounds. Abdominal: Palpations: Abdomen is soft. Tenderness: There is no abdominal tenderness. Musculoskeletal: Cervical back: Normal range of motion. Lymphadenopathy: Cervical: No cervical adenopathy. Skin: Findings: No rash. ASSESSMENT/PLAN: 1. Oropharyngeal candidiasis - ICD9: 112.0, ICD10: B37.0 Complications of the disease were discussed with the patient. Start Mycelex kim discussed side effects of the medication with the patient Encouraged to get plenty of rest, drink lots of clear liquids and use Tylenol or Ibuprofen for fever and comfort. To be seen primary care physician in 3 to 5 days if no improvement, sooner if worsening of symptoms. - CLOTRIMAZOLE 10 MG KIM Son Aisha Rehman MD Allergies As of Date: 12/19/2022 N (more content not included)... Normal [facility] Basic Metabolic Panelon 03-0 Anion gap [Moles/Vol] 8 mmol/L Normal 3-13 [facility] Comment on above: Performed By: #### H SUMMER HASSAN3 #### [facility] [address] [place], [place] Calcium [Mass/Vol] 8.2 mg/dL Low 8.4-10.4 [facility] Comment on above: Performed By: #### H SUMMER HASSAN3 #### [facility] [address] [place], [place] CO2 [Moles/Vol] 27 mmol/L Normal 22-30 [facility] Comment on above: Performed By: #### H SUMMER HASSAN3 #### [facility] [address] [place], [place] Creatinine [Mass/Vol] 0.84 mg/dL Normal 0.52-1.25 [facility] Comment on above: Performed By: #### H SUMMER HASSAN3 #### [place] [address] [address] [place], [place] eGFR OTHER > 90.0 Normal >60 [facility] Comment on above: Result Comment: KDIG O guidelines provide the following GFR categories: Stage GFR(ml/min/1.73 m2) Terms G1 >=90 Normal or high G2 60-89 Mildly decreased* G3a 45-59 Mildly to moderately decreased G3b 30-44 Moderately to severely decreased G4 15-29 Severely decreased G5 <15 Kidney failure *Relative to young adult level. In the absence of evidence of kidney damage, neither GFR category G1 nor G2 fulfill the criteria for CKD. The CKD-EPI equation is validated in individuals 18 years of age and older. Currently the best equation for estimating glomerular filtration rate (GFR) from serum creatinine in children is the Bedside Goode equation. It is less accurate in patients with extremes of muscle mass, restriction of dietary protein, ingestion of creatine, extra-renal metabolism of creatinine, or treatment with medications that affect renal tubular creatinine secretion. Performed By: #### H SUMMER HASSAN3 #### [place] [address] [address], [place] GFR/1.73 sq M.predicted among blacks MDRD (S/P/Bld) [Vol rate/Area] mL/min/{1.73_m2} Normal >60 [facility] Comment on above: Performed By: #### H SUMMER HASSAN3 #### [address] [place], [place] Glucose [Mass/Vol] 111 mg/dL High 70-100 [facility] Comment on above: Performed By: #### H SUMMER HASSAN3 #### [address] Urea nitrogen [Mass/Vol] 21 mg/dL High 7-20 [facility] Comment on above: Performed By: #### H MO BMP3 #### [address] [address] [address] [place], [place] Chloride [Moles/Vol] 100 mmol/L Normal 98-107 [facility] Comment on above: Performed By: #### H EMDF, BMP3 #### [facility] [address] [place], [place] Potassium [Moles/Vol] 4.1 mmol/L Normal 3.5-5.1 [facility] Comment on above: Performed By: #### H EMDF, BMP3 #### [facility] [address] [place], [place] Sodium [Moles/Vol] 136 mmol/L Normal 135-145 [facility] Comment on above: Performed By: #### H EMDF, BMP3 #### [facility] [address] [place], [place] Anion gap [Moles/Vol] 8 mmol/L 3 - 13 mmol/L [facility] Work Phone: Calcium [Mass/Vol] 8.2 mg/dL Low 8.4 - 10.4 mg/dL [facility] Work Phone: Chloride [Moles/Vol] 100 mmol/L 98 - 107 mmol/L [facility] Work Phone: CO2 [Moles/Vol] 27 mmol/L 22 - 30 mmol/L [facility] Work Phone: Creatinine [Mass/Vol] 0.84 mg/dL 0.52 - 1.25 mg/dL [facility] Work Phone: EGFR IF NonAfrican Guamanian >90.0 >60 mL/min [facility] Work Phone: Comment on above: KDIGO guidelines pro vide the following GFR categories: Stage GFR(ml/min/1.73 m2) Terms G1 >=90 Normal or high G2 60-89 Mildly decreased* G3a 45-59 Mildly to moderately decreased G3b 30-44 Moderately to severely decreased G4 15-29 Severely decreased G5 <15 Kidney failure *Relative to young adult level. In the absence of evidence of kidney damage, neither GFR category G1 nor G2 fulfill the criteria for CKD. The CKD-EPI equation is validated in individuals 18 years of age and older. Currently the best equation for estimating glomerular filtration rate (GFR) from serum creatinine in children is the Bedside Goode equation. It is less accurate in patients with extremes of muscle mass, restriction of dietary protein, ingestion of creatine, extra-renal metabolism of creatinine, or treatment with medications that affect renal tubular creatinine secretion. GFR/1.73 sq M predicted among blacks MDRD (S/P/Bld) [Vol rate/Area] mL/min/{1.73_m2} >60 mL/min [facility] Work Phone: Glucose [Mass/Vol] 111 mg/dL High 70 - 100 mg/dL [facility] Work Phone: Interpretation and review of laboratory results Abnormal [facility] Work Phone: Potassium [Moles/Vol] 4.1 mmol/L 3.5 - 5.1 mmol/L [facility] Work Phone: Sodium [Moles/Vol] 136 mmol/L 135 - 145 mmol/L [facility] Work Phone: Urea nitrogen [Mass/Vol] 21 mg/dL High 7 - 20 mg/dL [employer] Work Phone: Test Performed by [facility], [address] [place] [address] [facility] Work Phone: CBC Auto Differentialon 03-0 Absolute Baso # 0.0 10*3/uL 0.0 - 0.2 10*3/uL [facility] Work Phone: Absolute Neut # 6.0 10*3/uL 1.8 - 7.0 10*3/uL [facility] Work Phone: Basophils/100 WBC (Bld) 0.4 % 0.0 - 2.0 % [facility] Work Phone: Eosinophils (Bld) [#/Vol] 0.1 10*3/uL 0.0 - 0.5 10*3/uL [facility] Work Phone: Eosinophils/100 WBC (Bld) 1.3 % 1.0 - 6.0 % [facility] Work Phone: Erythrocyte distribution width (RBC) [Ratio] 13.1 % 11.5 - 14.5 % [facility] Work Phone: [phone] Granulocytes/100 WBC (Bld) 66.2 % 40.0 - 80.0 % [facility] Work Phone: 1 Hematocrit (Bld) [Volume fraction] 40.6 % 40.0 - 52.0 % [facility] Work Phone: Hemoglobin (Bld) [Mass/Vol] 13.6 g/dL 13.0 - 18.0 g/dL [facility] Work Phone: Interpretation and review of laboratory results Abnormal [employer] Work Phone: Lymphocytes (Bld) [#/Vol] 2.0 10*3/uL 1.0 - 4.3 10*3/uL [facility] Work Phone: Lymphocytes/100 WBC (Bld) 21.6 % 20.0 - 40.0 % [employer] Work Phone: MCH (RBC) [Entitic mass] 31.9 pg 26.0 - 34.0 pg [employer] Work Phone: MCHC (RBC) [Mass/Vol] 33.5 % 32.0 - 36.0 % [facility] Work Phone: MCV (RBC) [Entitic vol] 95.3 fL 80.0 - 98.0 fL [employer] Work Phone: Monocytes (Bld) [#/Vol] 1.0 10*3/uL High 0.0 - 0.8 10*3/uL [employer] Work Phone: Monocytes/100 WBC (Bld) 10.5 % High 2.0 - 10.0 % [facility] Work Phone: Platelet mean volume (Bld) [Entitic vol] 8.7 fL 7.4 - 10.4 fL [facility] Work Phone: Platelets (Bld) [#/Vol] 199 10*3/uL 140 - 440 10*3/uL [facility] Work Phone: RBC (Bld) [#/Vol] 4.26 10*6/uL Low 4.40 - 5.90 10*6/uL [facility] Work Phone: WBC (Bld) [#/Vol] 9.1 10*3/uL 3.6 - 10.7 10*3/uL [facility] Work Phone: Test Performed by [facility], [facility] [place] [address] [facility] Work Phone: COVID-19on 08-20-2020 SARS-CoV-2 Not Detected. Not Detected [facility] Work Phone: Comment on above: Not Detected. Expected Result: Not Detected _ Real-time, RT-PCR performed on the [employer] System by the [facility] Negative results do not preclude SARS-CoV-2 infection and should not be used as the sole basis for treatment or other patient management decisions. This assay was developed by [employer] and distributed under an Emergency Use Authorization (EUA) granted by the FDA for the qualitative detection of SARS-CoV-2 nucleic acid. Provider and patient fact sheets can be found at https://www.fda.gov/media/325651/download and https://www.fda.gov/media/070307/download. Test Performed by [facility] [address] [address] Hemogram w/ Autodiffon 08-20 Abs Baso Cnt 0.0 10*3/uL Normal 0.0-0.2 [facility] Comment on above: Performed By: #### H EMDF BMP3 #### [address] [address] Abs Neutrophile Cnt 6.0 10*3/uL Normal 1.8-7.0 [facility] Comment on above: Performed By: #### H EMDF BMP3 #### [facility] [address] [address] Basophils/100 WBC (Bld) 0.4 % Normal 0.0-2.0 [facility] Comment on above: Performed By: #### H EMDF, BMP3 #### [address] [address] [place] [address] Eosinophils (Bld) [#/Vol] 0.1 10*3/uL Normal 0.0-0.5 [facility] Comment on above: Performed By: #### H EMDF BMP3 #### [address] [address] [place], [place] Eosinophils/100 WBC (Bld) 1.3 % Normal 1.0-6.0 [facility] Comment on above: Performed By: #### H EMDF BMP3 #### [address] [address] [place], [place] Erythrocyte distribution width (RBC) [Ratio] 13.1 % Normal 11.5-14.5 [facility] Comment on above: Performed By: #### H MO BMP3 #### [address] [address] [place], [place] Granulocytes/100 WBC (Bld) 66.2 % Normal 40.0-80.0 [facility] Comment on above: Performed By: #### H MO BMP3 #### [address] [address] [place], [place] Hematocrit (Bld) [Volume fraction] 40.6 % Normal 40.0-52.0 [facility] Comment on above: Performed By: #### H MO BMP3 #### [address] [address] [place], [place] Hemoglobin (Bld) [Mass/Vol] 13.6 g/dL Normal 13.0-18.0 [facility] Comment on above: Performed By: #### H EMDF BMP3 #### [address] [place], [place] Lymphocytes (Bld) [#/Vol] 2.0 10*3/uL Normal 1.0-4.3 [facility] Comment on above: Performed By: #### H EMDF BMP3 #### [address] [address] [place], [place] Lymphocytes/100 WBC (Bld) 21.6 % Normal 20.0-40.0 [facility] Comment on above: Performed By: #### H EMDF BMP3 #### [address] [address] [place], [place] MCH (RBC) [Entitic mass] 31.9 pg Normal 26.0-34.0 [facility] Comment on above: Performed By: #### H MO BMP3 #### [facility] [address] [place], [place] MCHC 33.5 % Normal 32.0-36.0 [facility] Comment on above: Performed By: #### Anuj HASSAN BMP3 #### [facility] [address] [place], [place] MCV (RBC) [Entitic vol] 95.3 fL Normal 80.0-98.0 [facility] Comment on above: Performed By: #### H MO BMP3 #### [address] [place], [place] Monocytes (Bld) [#/Vol] 1.0 10*3/uL High 0.0-0.8 [facility] Comment on above: Performed By: #### Anuj HASSAN BMP3 #### [address] [address] [place], [place] Monocytes/100 WBC (Bld) 10.5 % High 2.0-10.0 [facility] Comment on above: Performed By: #### H MO BMP3 #### [address] [address] [place], [place] Platelet mean volume (Bld) [Entitic vol] 8.7 fL Normal 7.4-10.4 [facility] Comment on above: Performed By: #### H MO BMP3 #### [address] [address] [place], [place] Platelets (Bld) [#/Vol] 199 10*3/uL Normal 140-440 [facility] Comment on above: Performed By: #### H MO BMP3 #### [address] [address] [address] [place], [place] RBC (Bld) [#/Vol] 4.26 10*6/uL Low 4.40-5.90 [facility] Comment on above: Performed By: #### H MO BMP3 #### [facility] [address] [place], [place] WBC (Bld) [#/Vol] 9.1 10*3/uL Normal 3.6-10.7 [facility] Comment on above: Performed By: #### H SUMMER HASSAN3 #### [facility] [address] [place], [place] [id number] 08-20-2020 SARS-CoV-2 (COVID-19) RNA BRADLEY+probe Ql (Unsp spec) SARS-CoV-2 --> Status: F Not Detected. Expected Result: Not Detected _ Real-time, RT-PCR performed on the Arpeggi System by the [facility] Negative results do not preclude SARS-CoV-2 infection and should not be used as the sole basis for treatment or other patient management decisions. This assay was developed by [employer] and distributed under an Emergency Use Authorization (EUA) granted by the [facility] for the qualitative detection of SARS-CoV-2 nucleic acid. Provider and patient fact sheets can be found at https://www.fda.gov/media/70617 2/download and https://www.fda.gov/media/09091 1/download. Expected Result: Not Detected _ Real-time, RT-PCR performed on the Arpeggi System by the [facility] Negative results do not preclude SARS-CoV-2 infection and should not be used as the sole basis for treatment or other patient management decisions. This assay was developed by [employer] and distributed under an Emergency Use Authorization (EUA) granted by the FDA for the qualitative detection of SARS-CoV-2 nucleic acid. Provider and patient fact sheets can be found at https://www.fda.gov/media/98249 2/download and https://www.fda.gov/media/75199 1/download. Normal [facility] Comment on above: Performed By: #### C OVID ####[facility] [place], [place] Op Noteon 08-18-[address] [facility] [address] [address] Dept: [phone] Loc: [phone] Operative Report Patient Name: Mc Jorge Date of : 1975 Date of Surgery: 08/18/20 Pre-operative diagnosis: Left trimalleolar ankle fracture, right patellar tendon rupture Post-operative diagnosis: Same with syndesmosis disruption Procedure(s): 1.Open reduction internal fixation of left trimalleolar ankle fracture without fixation of posterior lip 2. Stress exam of leftankle under fluoroscopy 3. Open reduction and internal fixation left syndesmosis disruption 4. Primary repair right patellar tendon rupture Surgeon: Shlomo Smith M.D. Blood Tester(s): Narayan Lubin M.D., King Lockwood M.D. and Jas Worthy PA-C Anesthesia: General and Nerve Block EBL: Minimal IVF: Crystalloid Medications: Three grams of cefazolin were given. Implants: [employer] small frag Clinical History/Indication for Surgery The patient is a 45 y.o. year old male who was presents for operative fixation of a displaced ankle fracture and rupture of contralateral patellar tendon. Typical indications for surgery were reviewed and operative fixation was recommended. Risks of fracture surgery in general were reviewed including, but not limited to, infection, non-union, need for additional procedures, painful or prominent hardware which could require removal, failure of fixation which would require revision, damage to normal structures as well as medical complications such as NM, stroke, PE, DVT, and even . Pt was given opportunity to ask questions and consider his options. He ultimately elected to proceed with surgery. No guarantees were given or implied. Operative Narration The patient was identified in the pre-operative holding area. The surgical site was identified and marked. Informed consent was obtained. The patient was then brought to the operating room and placed supine on the operating table. Anesthesia was administered and care of the head, neck, and airway was maintained by the anesthesia staff throughout the entire procedure. All bony prominences were identified and padded. A tourniquet was applied to the thigh of the operative extremity. The leg was prepped and draped in the usual sterile fashion. A surgical timeout was performed. Antibiotics were confirmed to have been given. After exsanguination the tourniquet was inflated. The fibula was approached through a direct lateral approach dividing skin and subcutaneous tissues down to the periosteum. The superficial peroneal nerve was not visualized during the procedure. The periosteum was reflected only along the margin of the fracture to allow for reduction but was otherwise left intact. Hematoma was cleaned from the fracture site and it was irrigated. The fracture was clamped and fixed initially with a 2.7mm lag screw. A neutralization plate was applied laterally and fixed using cortical screws proximal and cancellous screws distal to the fracture. The medial malleolus was extremely small and not addressed surgically. The posterior malleolus was small and did not need addressed surgically. Fluoroscopic imaging confirmed an excellent overall reduction and appropriate placement of all hardware. A live external rotation stress test of the ankle under fluoroscopy was performed which showed evidence syndesmosis instability therefore a single syndesmosis screw pas placed after a clamp was applied. Wounds were copiously irrigated with sterile saline and closed in a layered fashion using 2-0 vicryl and 3-0 nylon. The right knee was then addressed. After exsanguination the tourniquet was inflated. An anterior midline incision was used and taken down to the extensor mechanism. The patellar tendon was found to be ruptured in the mid-substance with typical mop end type fraying of the tendon ends. #5 Fiberwire was used with running Krackow type sutures in the patellar tendon. These were placed proximally and distally and then tied to approximate the tendon with the knee in full extension. Both the medial and lateral retinaculum tears were repaired with #1 Surgilon. The knee was allowed to gently flex to assess the repair. There was no tension on the repair up to approximately 20 degrees of flexion. Copious irrigation was performed and closure performed in a layered fashion including fascia and skin. A sterile compressive dressing was then applied. A knee immobilizer was placed with the knee locked in extension. A sterile compressive dressing was applied followed by a well-padded posterior splint with the ankle in neutral dorsiflexion. Once the patient was awakened from anesthesia, they were transported to the PACU in stable condition, having tolerated surgery well with no obvious complications. Postoperative Plan Non-weight bearing in splint on left WBAT on right with knee locked in (more content not included)... [facility] Prothrombin Timeon 1 INR 1.0 Normal 0.9-1.1 [facility] Comment on above: Result Comment: Wilfredo mmended Anticoagulant Therapy: SEE BELOW ----- INR of 2.0 - 3.0 : - Prophylaxis of Venous Thrombosis (high-risk surgery) - Treatment of Venous Thrombosis - Treatment of Pulmonary Embolism (Includes tissue heart valves, Acute Myocardial Infarction to prevent systemic embolism, Valvular Heart Disease, and Atrial Fibrillation) ----- INR of 2.5 - 3.5 : - Mechanical Prosthetic Valves (high risk) - If oral anticoagulant therapy is used to prevent Myocardial Infarction Performed By: #### P T #### [facility] [address] [place] [phone] PT Coag (PPP) [Time] 10.5 s Normal 9.0-12.0 [facility] Comment on above: Result Comment: . Performed By: #### P T #### [facility] [address] [place] [phone] Protime-INRon 08-18-2020 INR Coag (PPP) [Relative time] 1.0 {INR} [employer] Work Phone: Comment on above: Recommended Anticoag ulant Therapy: SEE BELOW ----- INR of 2.0 - 3.0 : - Prophylaxis of Venous Thrombosis (high-risk surgery) - Treatment of Venous Thrombosis - Treatment of Pulmonary Embolism (Includes tissue heart valves, Acute Myocardial Infarction to prevent systemic embolism, Valvular Heart Disease, and Atrial Fibrillation) ----- INR of 2.5 - 3.5 : - Mechanical Prosthetic Valves (high risk) - If oral anticoagulant therapy is used to prevent Myocardial Infarction PT Coag (PPP) [Time] 10.5 s 9.0 - 12.0 s [employer] Work Phone: Comment on above: . Test Performed by [facility], [address] [place] [address] [employer] Work Phone: Basic Metabolic Panelon Calcium [Mass/Vol] 8.6 mg/dL Normal 8.4-10.4 [facility] Comment on above: Performed By: #### B MP3M, HEMOG #### [facility] [address] [address] Glucose [Mass/Vol] 115 mg/dL High 70-100 [facility] Comment on above: Performed By: #### B MP3M, HEMOG #### [facility] [address] [place] [address] Urea nitrogen [Mass/Vol] 16 mg/dL Normal 7-20 [facility] Comment on above: Performed By: #### B MP3M, HEMOG #### [facility] [address] [place] [address] Anion gap [Moles/Vol] 10 mmol/L Normal 3-13 [facility] Comment on above: Performed By: #### B MP3M, HEMOG #### [facility] [address] [place] [address] CO2 [Moles/Vol] 23 mmol/L Normal 22-30 [facility] Comment on above: Performed By: #### B MP3M, HEMOG #### [facility] [address] [place] [address] Creatinine [Mass/Vol] 0.86 mg/dL Normal 0.52-1.25 [facility] Comment on above: Performed By: #### B MP3M, HEMOG #### [facility] [address] [place] [address] eGFR OTHER > 90.0 Normal >60 [facility] Comment on above: Result Comment: KDIG O guidelines provide the following GFR categories: Stage GFR(ml/min/1.73 m2) Terms G1 >=90 Normal or high G2 60-89 Mildly decreased* G3a 45-59 Mildly to moderately decreased G3b 30-44 Moderately to severely decreased G4 15-29 Severely decreased G5 <15 Kidney failure *Relative to young adult level. In the absence of evidence of kidney damage, neither GFR category G1 nor G2 fulfill the criteria for CKD. The CKD-EPI equation is validated in individuals 18 years of age and older. Currently the best equation for estimating glomerular filtration rate (GFR) from serum creatinine in children is the Bedside Goode equation. It is less accurate in patients with extremes of muscle mass, restriction of dietary protein, ingestion of creatine, extra-renal metabolism of creatinine, or treatment with medications that affect renal tubular creatinine secretion. Performed By: #### B MP3M, HEMOG #### [facility] [address] [place] [address] GFR/1.73 sq M.predicted among blacks MDRD (S/P/Bld) [Vol rate/Area] mL/min/{1.73_m2} Normal >60 [facility] Comment on above: Performed By: #### B MP3M, HEMOG #### [facility] [address] [place] [address] Potassium [Moles/Vol] 4.1 mmol/L Normal 3.5-5.1 [facility] Comment on above: Performed By: #### B MP3M, HEMOG #### [facility] [address] [place] [address] Chloride [Moles/Vol] 102 mmol/L Normal 98-107 [facility] Comment on above: Performed By: #### B MP3M, HEMOG #### [facility] [address] [place] [address] Sodium [Moles/Vol] 135 mmol/L Normal 135-145 [facility] Comment on above: Performed By: #### B MP3M, HEMOG #### [facility] [address] [place] [address] Basic Metabolic Panel w/ Ref dinah to MGon 08-17-2020 Anion gap [Moles/Vol] 10 mmol/L 3 - 13 mmol/L [facility] Work Phone: Calcium [Mass/Vol] 8.6 mg/dL 8.4 - 10.4 mg/dL [facility] Work Phone: Chloride [Moles/Vol] 102 mmol/L 98 - 107 mmol/L [facility] Work Phone: CO2 [Moles/Vol] 23 mmol/L 22 - 30 mmol/L [facility] Work Phone: Creatinine [Mass/Vol] 0.86 mg/dL 0.52 - 1.25 mg/dL [facility] Work Phone: EGFR IF NonAfrican Guamanian >90.0 >60 mL/min [facility] Work Phone: Comment on above: KDIGO guidelines pro vide the following GFR categories: Stage GFR(ml/min/1.73 m2) Terms G1 >=90 Normal or high G2 60-89 Mildly decreased* G3a 45-59 Mildly to moderately decreased G3b 30-44 Moderately to severely decreased G4 15-29 Severely decreased G5 <15 Kidney failure *Relative to young adult level. In the absence of evidence of kidney damage, neither GFR category G1 nor G2 fulfill the criteria for CKD. The CKD-EPI equation is validated in individuals 18 years of age and older. Currently the best equation for estimating glomerular filtration rate (GFR) from serum creatinine in children is the Bedside Goode equation. It is less accurate in patients with extremes of muscle mass, restriction of dietary protein, ingestion of creatine, extra-renal metabolism of creatinine, or treatment with medications that affect renal tubular creatinine secretion. GFR/1.73 sq M predicted among blacks MDRD (S/P/Bld) [Vol rate/Area] mL/min/{1.73_m2} >60 mL/min [employer] Work Phone: [phone] Glucose [Mass/Vol] 115 mg/dL High 70 - 100 mg/dL [employer] Work Phone: [phone] Interpretation and review of laboratory results Abnormal [employer] Work Phone: [phone] Potassium [Moles/Vol] 4.1 mmol/L 3.5 - 5.1 mmol/L [employer] Work Phone: [phone] Sodium [Moles/Vol] 135 mmol/L 135 - 145 mmol/L [employer] Work Phone: [phone] Urea nitrogen [Mass/Vol] 16 mg/dL 7 - 20 mg/dL [employer] Work Phone: [phone] Test Performed by [facility], [address] [place] [address] [employer] Work Phone: [phone] CBCon 08-17-2020 Erythrocyte distribution width (RBC) [Ratio] 13.4 % 11.5 - 14.5 % [employer] Work Phone: [phone] Hematocrit (Bld) [Volume fraction] 41.1 % 40.0 - 52.0 % [employer] Phone: [phone] Hemoglobin (Bld) [Mass/Vol] 13.8 g/dL 13.0 - 18.0 g/dL [facility] Work Phone: [phone] Interpretation and review of laboratory results Abnormal [facility] Work Phone: 1 MCH (RBC) [Entitic mass] 31.8 pg 26.0 - 34.0 pg [facility] Work Phone: 1 MCHC (RBC) [Mass/Vol] 33.6 % 32.0 - 36.0 % [facility] Work Phone: MCV (RBC) [Entitic vol] 94.8 fL 80.0 - 98.0 fL [employer] Work Phone: 1 Platelet mean volume (Bld) [Entitic vol] 9.6 fL 7.4 - 10.4 fL [facility] Work Phone: Platelets (Bld) [#/Vol] 189 10*3/uL 140 - 440 10*3/uL [facility] Work Phone: RBC (Bld) [#/Vol] 4.33 10*6/uL Low 4.40 - 5.90 10*6/uL [facility] Work Phone: 1 WBC (Bld) [#/Vol] 9.3 10*3/uL 3.6 - 10.7 10*3/uL [facility] Work Phone: [phone] Performed by [facility], [address] [place] [id number] [facility] Work Phone: [phone] Hemogramon 08-17-2020 Erythrocyte distribution width (RBC) [Ratio] 13.4 % Normal 11.5-14.5 [facility] Comment on above: Performed By: #### B MP3Angela, HEMOG #### [address] [id number] Hematocrit (Bld) [Volume fraction] 41.1 % Normal 40.0-52.0 [facility] Comment on above: Performed By: #### B MP3M, HEMOG #### [address] [id number] Hemoglobin (Bld) [Mass/Vol] 13.8 g/dL Normal 13.0-18.0 [facility] Comment on above: Performed By: #### B MP3M, HEMOG #### [facility] [address], [place] MCH (RBC) [Entitic mass] 31.8 pg Normal 26.0-34.0 [facility] Comment on above: Performed By: #### B MP3M, HEMOG #### [facility] [address], [place] MCHC 33.6 % Normal 32.0-36.0 [facility] Comment on above: Performed By: #### B MP3M, HEMOG #### [facility] [address], [place] MCV (RBC) [Entitic vol] 94.8 fL Normal 80.0-98.0 [facility] Comment on above: Performed By: #### B MP3M, HEMOG #### [place] [address] [address], [place] Platelet mean volume (Bld) [Entitic vol] 9.6 fL Normal 7.4-10.4 [facility] Comment on above: Performed By: #### B MP3M, HEMOG #### [facility] [address], [place] Platelets (Bld) [#/Vol] 189 10*3/uL Normal 140-440 [facility] Comment on above: Performed By: #### B MP3M, HEMOG #### [facility] [address], [place] RBC (Bld) [#/Vol] 4.33 10*6/uL Low 4.40-5.90 [facility] Comment on above: Performed By: #### B MP3M, HEMOG #### [facility] [address], [place] WBC (Bld) [#/Vol] 9.3 10*3/uL Normal 3.6-10.7 [facility] Comment on above: Performed By: #### B MP3M, HEMOG #### [facility] [address], [place] CT LOWER EXTREMITY LEFT WO C ONTRASTon 08-16-2020 [facility], [facility] In[facility] - 08/16/2020 12:24 AM EST [facility]: [id number] Computed Tomography ACCESSION EXAM DATE/TIME PROCEDURE ORDERING PROVIDER [id number] 08/16/2020 00:[address] Low Ext w/o Contrast MD LESLY, LALI Left CPT code 59461 Reason For Exam (CT Low Ext w/o Contrast Left) Post-reduction Report Exam Type: CT Low Ext w/o Contrast Left Exam Date and Time: 08/16/2020 12:09 AM EST Indication: Postreduction Comparison: Ankle radiographs from 08/15/2020 Technique: Axial CT imaging of the left ankle was obtained without contrast, followed by coronal and sagittal reconstructions. Findings: The patient's ankle is within a cast. There is been interval reduction of the trimalleolar left ankle fracture with improved alignment at the tibiotalar joint. There is redemonstration of comminuted distal fibular fracture as well as horizontal fracture of the medial malleolus and vertical fracture of the posterior malleolus. There is questionable flattening/impaction fracture of the talar dome. No additional fracture or dislocation is seen. There is associated soft tissue swelling of the ankle. Visualized portions of the flexor and extensor tendons are grossly intact. Impression: Redemonstration of trimalleolar fracture with improved alignment of the hindfoot. Questionable flattening/compression fracture of the talar dome. Report Dictated on Workstation: [facility] --- Final --- Dictated: 08/16/2020 0:20 am Dictating Physician: MD PANDA NEIL Signed Date and Time: 08/16/2020 0:23 am Signed by: MD PANDA NEIL Transcribed Date and Time: 08/16/2020 0:20 [facility] Work Phone: Patient Name: MC JORGE Computed Tomography ACCESSION EXAM DATE/TIME PROCEDURE ORDERING PROVIDER [id number] 08/16/2020 00:[address] Low Ext w/o Contrast MD GRACE ZACHARY Left CPT code 27085 Reason For Exam (CT Low Ext w/o Contrast Left) Post-reduction Report Exam Type: CT Low Ext w/o Contrast Left Exam Date and Time: 08/16/2020 12:09 AM EST Indication: Postreduction Comparison: Ankle radiographs from 08/15/2020 Technique: Axial CT imaging of the left ankle was obtained without contrast, followed by coronal and sagittal reconstructions. Findings: The patient's ankle is within a cast. There is been interval reduction of the trimalleolar left ankle fracture with improved alignment at the tibiotalar joint. There is redemonstration of comminuted distal fibular fracture as well as horizontal fracture of the medial malleolus and vertical fracture of the posterior malleolus. There is questionable flattening/impaction fracture of the talar dome. No additional fracture or dislocation is seen. There is associated soft tissue swelling of the ankle. Visualized portions of the flexor and extensor tendons are grossly intact. Impression: Redemonstration of trimalleolar fracture with improved alignment of the hindfoot. Questionable flattening/compression fracture of the talar dome. Report Dictated on Workstation: [facility] --- Final --- Dictated: 08/16/2020 0:20 am Dictating Physician: MD PANDA NEIL Signed Date and Time: 08/16/2020 0:23 am Signed by: MD PANDA NEIL Transcribed Date and Time: 08/16/2020 0:20 [facility] Work Phone: CT Low Ext w/o Contrast Left on 08-16-2020 CT Low Ext w/o Contrast Left Patient Name: MC JORGE Computed Tomography ACCESSION EXAM DATE/TIME PROCEDURE ORDERING PROVIDER [id number] 08/16/2020 00:[address] Low Ext w/o Contrast MD GRACE ZACHARY Left CPT code 02035 Reason For Exam (CT Low Ext w/o Contrast Left) Post-reduction Report Exam Type: CT Low Ext w/o Contrast Left Exam Date and Time: 08/16/2020 12:09 AM EST Indication: Postreduction Comparison: Ankle radiographs from 08/15/2020 Technique: Axial CT imaging of the left ankle was obtained without contrast, followed by coronal and sagittal reconstructions. Findings: The patient's ankle is within a cast. There is been interval reduction of the trimalleolar left ankle fracture with improved alignment at the tibiotalar joint. There is redemonstration of comminuted distal fibular fracture as well as horizontal fracture of the medial malleolus and vertical fracture of the posterior malleolus. There is questionable flattening/impaction fracture of the talar dome. No additional fracture or dislocation is seen. There is associated soft tissue swelling of the ankle. Visualized portions of the flexor and extensor tendons are grossly intact. Impression: Redemonstration of trimalleolar fracture with improved alignment of the hindfoot. Questionable flattening/compression fracture of the talar dome. 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1975 Requested By: COLTON PINEDA Order Number: [id number] Reading MD: Vel Cherry Measurements Intervals Sparks Rate: 100 P: 42 DE: 134 QRS: 39 QRSD: 87 T: 15 QT: 336 QTc: 434 Interpretive Statements Sinus tachycardia Abnormal R-wave progression, early transition Electronically Signed On 08-16-2020 15:43:48 EST by eVl Cherry [facility] Work Phone: [facility] Test Date: 2020-08-16 Pat Name: Mctracee Jorge Department: 1A6 Room: [facility] 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1975 Requested By: COLTON PINEDA Order Number: [id number] Reading MD: Vel Cherry Measurements Intervals Sparks Rate: 100 P: 42 DE: 134 QRS: 39 QRSD: 87 T: 15 QT: 336 QTc: 434 Interpretive Statements Sinus tachycardia Abnormal R-wave progression, early transition Electronically Signed On 08-16-2020 15:43:48 EST by Vel GIRON Work Phone: MRI LOWER EXTREMITY RIGHT W JT WO CONTRASTon 08-16-2020 Patient [facility]: [id number] Magnetic Resonance Imaging ACCESSION EXAM DATE/TIME PROCEDURE ORDERING PROVIDER [id number] 08/16/2020 13:09 EST MRI Low Ext Joint w/o MD LUBIN JAMES Contrast Right EDWARD CPT code 89263 Reason For Exam (MRI Low Ext Joint w/o Contrast Right) R patellar tendon rupture Report Exam Type: MRI Low Ext Joint w/o Contrast Right Exam Date and Time: 08/16/2020 1:09 PM EST Demographics: Gender: Male; Age: 45 years Indication: Patella tendon tear; Comparison: None available TECHNIQUE: MRI of the right knee was performed using a standard non-contrast protocol in three planes (axial, sagittal, and coronal). FINDINGS: JOINT SPACE: Trace joint effusion. A Bhardwaj's cyst is present. No intra-articular bodies. MEDIAL COMPARTMENT: Suspected low-grade horizontal intrameniscal tear within the mid body to posterior horn, with only capsular surface contact (images 19-24 series 8 and 10). No definite articular surface contact. No focal or full-thickness chondral defect/injury. LATERAL COMPARTMENT: Horizontal/oblique tear of the body, extending into the posterior horn, with tibial articular surface contact. No displaced meniscal tear. No full-thickness, focal cartilage defects. PATELLOFEMORAL COMPARTMENT: Partial-thickness chondral fraying. No full-thickness, focal cartilage defects. No lateral patellar tilt or translation. Normal patellar and trochlear morphology. EXTENSOR MECHANISM: Full-thickness laceration of the mid patellar tendon (images 6-12 series 8, 9 and 10) resulting in mild elevation of the patella and slight quadriceps tendon laxity. Full-thickness tears of the anterior iliotibial band/lateral patellar retinaculum. Additional suspected high-grade partial versus/near full-thickness tear of the vastus lateralis tendon. Extensive subcutaneous tissue free fluid extends along the entire lateral aspect of the knee joint. These findings are best seen on images 17-34 series 6. The remaining quadriceps tendon is intact. Magnetic Resonance Imaging Report CRUCIATE LIGAMENTS: The anterior cruciate ligament is intact. The posterior cruciate ligament is intact. COLLATERAL LIGAMENTS AND POSTEROLATERAL CORNER: The medial collateral ligament (MCL) is intact. The lateral collateral ligament (LCL) is intact. OSSEOUS STRUCTURES: The alignment of the osseous structures is anatomic. No acute fracture or bone marrow edema. No suspicious osseous lesions or other bone marrow signal alteration. IMPRESSION: 1. Suspected low-grade horizontal intrameniscal tear within the medial meniscus mid body to posterior horn, with only capsular surface contact. No definite articular surface contact. 2. Horizontal/oblique tear of the lateral meniscus body, extending into the posterior horn, with tibial articular surface contact. 3. Full-thickness laceration of the mid patellar tendon resulting in mild elevation of the patella and slight quadriceps tendon laxity. 4. Full-thickness tears of the anterior iliotibial band/lateral patellar retinaculum. Additional suspected high-grade partial versus/near full-thickness tear of the vastus lateralis tendon. Extensive subcutaneous tissue free fluid extends along the entire lateral aspect of the knee joint. The remaining quadriceps tendon is intact. Report Dictated on --- Final --- Dictated: 08/16/2020 1:37 pm Dictating Physician: MD CAMPO JASON Signed Date and Time: 08/16/2020 1:54 pm Signed by: MD CAMPO JASON Transcribed Date and Time: 08/16/2020 1:37 [facility] Work Phone: [facility] Incoming [facility] - 08/16/2020 1:55 PM EST Patient Name: MC [facility] [id number] Magnetic Resonance Imaging ACCESSION EXAM DATE/TIME PROCEDURE ORDERING PROVIDER [id number] 08/16/2020 13:09 EST MRI Low Ext Joint w/o MD LUBIN JAMES Contrast Right EDWARD CPT code 97977 Reason For Exam (MRI Low Ext Joint w/o Contrast Right) R patellar tendon rupture Report Exam Type: MRI Low Ext Joint w/o Contrast Right Exam Date and Time: 08/16/2020 1:09 PM EST Demographics: Gender: Male; Age: 45 years Indication: Patella tendon tear; Comparison: None available TECHNIQUE: MRI of the right knee was performed using a standard non-contrast protocol in three planes (axial, sagittal, and coronal). FINDINGS: JOINT SPACE: Trace joint effusion. A Bhardwaj's cyst is present. No intra-articular bodies. MEDIAL COMPARTMENT: Suspected low-grade horizontal intrameniscal tear within the mid body to posterior horn, with only capsular surface contact (images 19-24 series 8 and 10). No definite articular surface contact. No focal or full-thickness chondral defect/injury. LATERAL COMPARTMENT: Horizontal/oblique tear of the body, extending into the posterior horn, with tibial articular surface contact. No displaced meniscal tear. No full-thickness, focal cartilage defects. PATELLOFEMORAL COMPARTMENT: Partial-thickness chondral fraying. No full-thickness, focal cartilage defects. No lateral patellar tilt or translation. Normal patellar and trochlear morphology. EXTENSOR MECHANISM: Full-thickness laceration of the mid patellar tendon (images 6-12 series 8, 9 and 10) resulting in mild elevation of the patella and slight quadriceps tendon laxity. Full-thickness tears of the anterior iliotibial band/lateral patellar retinaculum. Additional suspected high-grade partial versus/near full-thickness tear of the vastus lateralis tendon. Extensive subcutaneous tissue free fluid extends along the entire lateral aspect of the knee joint. These findings are best seen on images 17-34 series 6. The remaining quadriceps tendon is intact. Magnetic Resonance Imaging Report CRUCIATE LIGAMENTS: The anterior cruciate ligament is intact. The posterior cruciate ligament is intact. COLLATERAL LIGAMENTS AND POSTEROLATERAL CORNER: The medial collateral ligament (MCL) is intact. The lateral collateral ligament (LCL) is intact. OSSEOUS STRUCTURES: The alignment of the osseous structures is anatomic. No acute fracture or bone marrow edema. No suspicious osseous lesions or other bone marrow signal alteration. IMPRESSION: 1. Suspected low-grade horizontal intrameniscal tear within the medial meniscus mid body to posterior horn, with only capsular surface contact. No definite articular surface contact. 2. Horizontal/oblique tear of the lateral meniscus body, extending into the posterior horn, with tibial articular surface contact. 3. Full-thickness laceration of the mid patellar tendon resulting in mild elevation of the patella and slight quadriceps tendon laxity. 4. Full-thickness tears of the anterior iliotibial band/lateral patellar retinaculum. Additional suspected high-grade partial versus/near full-thickness tear of the vastus lateralis tendon. Extensive subcutaneous tissue free fluid extends along the entire lateral aspect of the knee joint. The remaining quadriceps tendon is intact. Report Dictated on --- Final --- Dictated: 08/16/2020 1:37 pm Dictating Physician: MD CAMPO JASON Signed Date and Time: 08/16/2020 1:54 pm Signed by: MD CAMPO JASON Transcribed Date and Time: 08/16/2020 1:37 [facility] Work Phone: MRI Low Ext Joint w/o Contra st Righton 08-16-2020 MRI Low Ext Joint w/o Contrast Right Patient Name: MC JORGE Magnetic Resonance Imaging ACCESSION EXAM DATE/TIME PROCEDURE ORDERING PROVIDER [id number] 08/16/2020 13:09 EST MRI Low Ext Joint w/o MD LUBIN JAMES Contrast Right [place]G CPT code 35320 Reason For Exam (MRI Low Ext Joint w/o Contrast Right) R patellar tendon rupture Report Exam Type: MRI Low Ext Joint w/o Contrast Right Exam Date and Time: 08/16/2020 1:09 PM EST Demographics: Gender: Male; Age: 45 years Indication: Patella tendon tear; Comparison: None available TECHNIQUE: MRI of the right knee was performed using a standard non-contrast protocol in three planes (axial, sagittal, and coronal). FINDINGS: JOINT SPACE: Trace joint effusion. A Bhardwaj's cyst is present. No intra-articular bodies. MEDIAL COMPARTMENT: Suspected low-grade horizontal intrameniscal tear within the mid body to posterior horn, with only capsular surface contact (images 19-24 series 8 and 10). No definite articular surface contact. No focal or full-thickness chondral defect/injury. LATERAL COMPARTMENT: Horizontal/oblique tear of the body, extending into the posterior horn, with tibial articular surface contact. No displaced meniscal tear. No full-thickness, focal cartilage defects. PATELLOFEMORAL COMPARTMENT: Partial-thickness chondral fraying. No full-thickness, focal cartilage defects. No lateral patellar tilt or translation. Normal patellar and trochlear morphology. EXTENSOR MECHANISM: Full-thickness laceration of the mid patellar tendon (images 6-12 series 8, 9 and 10) resulting in mild elevation of the patella and slight quadriceps tendon laxity. Full-thickness tears of the anterior iliotibial band/lateral patellar retinaculum. Additional suspected high-grade partial versus/near full-thickness tear of the vastus lateralis tendon. Extensive subcutaneous tissue free fluid extends along the entire lateral aspect of the knee joint. These findings are best seen on images 17-34 series 6. The remaining quadriceps tendon is intact. Magnetic Resonance Imaging Report CRUCIATE LIGAMENTS: The anterior cruciate ligament is intact. The posterior cruciate ligament is intact. COLLATERAL LIGAMENTS AND POSTEROLATERAL CORNER: The medial collateral ligament (MCL) is intact. The lateral collateral ligament (LCL) is intact. OSSEOUS STRUCTURES: The alignment of the osseous structures is anatomic. No acute fracture or bone marrow edema. No suspicious osseous lesions or other bone marrow signal alteration. IMPRESSION: 1. Suspected low-grade horizontal intrameniscal tear within the medial meniscus mid body to posterior horn, with only capsular surface contact. No definite articular surface contact. 2. Horizontal/oblique tear of the lateral meniscus body, extending into the posterior horn, with tibial articular surface contact. 3. Full-thickness laceration of the mid patellar tendon resulting in mild elevation of the patella and slight quadriceps tendon laxity. 4. Full-thickness tears of the anterior iliotibial band/lateral patellar retinaculum. Additional suspected high-grade partial versus/near full-thickness tear of the vastus lateralis tendon. Extensive subcutaneous tissue free fluid extends along the entire lateral aspect of the knee joint. The remaining quadriceps tendon is intact. Report Dictated on Final Dictated: 08/16/2020 1:37 pm Dictating Physician: MD CAMPO JASON Signed Date and Time: 08/16/2020 1:54 pm Signed by: MD CAMPO JASON Transcribed Date and Time: 08/16/2020 1:37 Normal [facility] TS GELon 08-16-2020 TS GEL ABO Group: O Rh, Gel: POS Antibody Screen Gel: NEG Normal [facility] Comment on above: Performed By: #### T SGL #### [facility] TYPE AND SCREENon 08-16-2020 Sodium [Moles/Vol] O [facility] Work Phone: Sodium [Moles/Vol] Negative [facility] Work Phone: Sodium [Moles/Vol] Positive [facility] Work Phone: Test Performed by [facility], [address] [place] [id number] [facility] Work Phone: CR Ankle 2 Views Lefton 07-20 CR Ankle 2 Views Left Patient Name: MC JORGE Diagnostic Radiology ACCESSION EXAM DATE/TIME PROCEDURE ORDERING PROVIDER [id number] 08/15/2020 19:15 EST CR Ankle 2 Views Left ALEXIS SANDHU CPT code 03751 Reason For Exam (CR Ankle 2 Views Left) ankle injury, deformity Report LEFT ANKLE, 2 VIEWS: INDICATION: Fall, ankle pain COMPARISON: No prior studies are available for comparison. Frontal and lateral views of the left ankle were obtained. There is fracture dislocation of the left ankle with fractures of the medial and lateral malleolar line as well as of the lateral margin of the distal tibia and lateral dislocation of the talus relative to the tibia. The joint spaces are within normal limits. No significant soft tissue abnormalities are noted. IMPRESSION: Bimalleolar fracture with dislocation of the left ankle. Report Dictated on Final Dictating Physician: DO MURGUIA ALFRED Signed Date and Time: 08/15/2020 7:24 pm Signed by: DO MURGUIA ALFRED Transcribed Date and Time: 08/15/2020 7:25 Normal [facility] CR Ankle 3+ Views Lefton CR Ankle 3+ Views Left Patient Name: MC JORGE Diagnostic Radiology ACCESSION EXAM DATE/TIME PROCEDURE ORDERING PROVIDER [id number] 08/15/2020 19:33 EST CR Ankle 3+ Views Left ALEXIS SANDHU CPT code 32638 Reason For Exam (CR Ankle 3+ Views Left) post reduction Report LEFT ANKLE THREE VIEWS CLINICAL INDICATION: post reduction TECHNIQUE: Three views of the left ankle. COMPARISON: Earlier today FINDINGS: Fiberglas cast has been placed. There is partial reduction of the tibiotalar dislocation, now is subluxed laterally rather than dislocated. Displaced medial malleolar fracture and displaced fracture of the distal fibular metadiaphysis. IMPRESSION: 1. Partial reduction of previously seen dislocation at the tibiotalar joint, though subluxation remains. Report Dictated on Final Dictating Physician: MD PEÑA JOHN R Signed Date and Time: 08/15/2020 7:55 pm Signed by: MD PEÑA JOHN R Transcribed Date and Time: 08/15/2020 7:56 Normal [facility] CR Knee 1 or 2 Views Righton 08-15-2020 CR Knee 1 or 2 Views Right Patient [facility]: [id number] Diagnostic Radiology ACCESSION EXAM DATE/TIME PROCEDURE ORDERING PROVIDER [id number] 08/15/2020 19:15 EST CR Knee 1 or 2 Views ALEXIS SANDHU Right CPT code 05957 Reason For Exam (CR Knee 1 or 2 Views Right) knee injury, pain Report RIGHT KNEE, 2 VIEWS: CLINICAL INDICATION: Posttraumatic right knee pain COMPARISON: No prior studies are available for comparison. Frontal and lateral views of the right knee were obtained. The bone density appears normal. No fracture or dislocation is noted. The joint spaces are within normal limits. There is mild infiltration of Hoffa's fat pad, otherwise the soft tissues are unremarkable. No joint effusion is appreciated. IMPRESSION: Negative examination of the knee. Report Dictated on Final Dictating Physician: DO MURGUIA ALFRED Signed Date and Time: 08/15/2020 7:21 pm Signed by: DO MURGUIA ALFRED Transcribed Date and Time: 08/15/2020 7:22 Normal [facility] ED Provider Noteon ED Provider Note [facility] EMERGENCY DEPARTMENT ENCOUNTER Pt Name: Mc Jorge Birthdate 1975 Date of evaluation: 08/15/2020 Provider: Alexis Sandhu MD CHIEF COMPLAINT Chief Complaint Patient presents with ? Ankle Pain I wore a N95 mask for the entirety of this encounter. HISTORY OF PRESENT ILLNESS (Location/Symptom, Timing/Onset,Context/Setting, Quality, Duration, Modifying Factors, Severity) Note limiting factors. LUISA Jorge is a 45 y.o. male who presents to the emergency department with left ankle and right knee pain. Patient states he slipped down a hill that was wet. His right leg was hyperflexed at the knee underneath him. He is unsure what direction his ankle went, but he suffered an ankle deformity. He is unable to weight-bear. He denies hitting his head or loss of consciousness. Denies head pain neck pain chest pain. Pain is severe, worse with any attempted movement of his left ankle. Nursing Notes were reviewed. REVIEW OFSYSTEMS (2+ for level 4; 10+ level 5) Review of Systems pertinent positives as above per history of present illness. Other systems reviewed and found to be negative to a total of 10 systems reviewed. PAST MEDICAL HISTORY Past Medical History: Diagnosis Date ? Hypertension ? Myocarditis (HCC) history of ? Obesity ? Spasm esophogus. SURGICAL HISTORY Past Surgical History: Procedure Laterality Date ? CARDIAC CATHETERIZATION 2001 CURRENT MEDICATIONS Previous Medications ASPIRIN 81 MG TABLET Take 81 mg by mouth daily ATORVASTATIN (LIPITOR) 10 MG TABLET Take 10 mg by mouth daily CETIRIZINE (ZYRTEC) 10 MG TABLET Take 10 mg by mouth daily CHOLECALCIFEROL (VITAMIN D3) 5000 UNITS TABS Take by mouth CLOMIPHENE (CLOMID) 50 MG TABLET Take 25 mg by mouth daily COENZYME Q10 (CO Q 10) 100 MG CAPS Take 400 mg by mouth daily CYANOCOBALAMIN (VITAMIN B 12 PO) Take by mouth DHEA 50 MG TABS Take by mouth FOLIC ACID 0.8 MG CAPS Take by mouth daily ALLERGIES Patient has no known allergies. FAMILY HISTORY Family History Problem Relation Age of Onset ? Lupus Mother ? Diabetes Father SOCIAL HISTORY Social History Socioeconomic History ? Marital status: Spouse name: None ? Number of children: None ? Years of education: None ? Highest education level: None Occupational History ? None Social Needs ? Financial resource strain: None ? Food insecurity Worry: None Inability: None ? Transportation needs Medical: None Non-medical: None Tobacco Use ? Smoking status: Never Smoker ? Smokeless tobacco: Never Used Substance and Sexual Activity ? Alcohol use: Yes Comment: sofie ? Drug use: No ? Sexual activity: None Lifestyle ? Physical activity Days per week: None Minutes per session: None ? Stress: None Relationships ? Social connections Talks on phone: None Gets together: None Attends zoroastrian service: None Active member of club or organization: None Attends meetings of clubs or organizations: None Relationship status: None ? Intimate partner violence Fear of current or ex partner: None Emotionally abused: None Physically abused: None Forced sexual activity: None Other Topics Concern ? None Social History Narrative ? None SCREENINGS PHYSICAL EXAM (up to 7 for level 4, 8 or more for level 5) ED Triage Vitals [08/15/20 1847] BP Temp Temp Source Pulse Resp SpO2 Height Weight (!) 146/79 98.6 ?F (37 ?C) Oral 96 18 100 % 6' 2 (1.88 m) (!) 305 lb (138.3 kg) Physical Exam vital signs reviewed in nurse's notes. Patient is nontoxic in appearance. No respiratory distress. Head: Normocephalic, atraumatic. Scalp is nontender Eyes: Pupils are equal, round and reactive to light. EOMI. Conjunctiva clear. Sclera anicteric ENT: Mucous membranes moist. Throat shows no erythema exudates or edema. Neck: No anterior adenopathy. No midline cervical spine tenderness or stiffness. Chest: Nontender. No obvious flail segments. Lungs: Clear to auscultation bilaterally. No wheezing rales or rhonchi. Heart: Regular rate and rhythm. No audible murmur or gallop. Abdomen: Soft, nondistended, nontender. No rebound or guarding. No signs of peritonitis. Back: No midline tenderness. No flank area tenderness. Extremities: Patient has an obvious deformity of his left ankle with the tibia tenting the skin on the medial side of the ankle. He does have good distal pulse in the dorsalis pedis area but the left foot is slightly delayed capillary refill compared to the right from the midfoot distally. On his right knee he is unable to lift the leg up off the bed. He has an obvious effusion and void of tissue inferior to the patella. He has pain with movement of the knee. No other obvious extremity tenderness. No obvious joint swelling otherwise. No calf tenderness. Negative Homans sign. Good distal pulses in all 4 extremities. Neurologic: Alert and fully oriented. No focal motor, sensory deficits in all 4 extremities. DIAGNOSTIC RESULTS RADIOLOGY (Per Emergency Physician): X-rays are obtained. The right knee shows no obvious fracture. X-ray of the left ankle shows distal fibula fracture, tibia fracture, dislocation. These are read by radiology. I did review the films at the time they were taken with the x-ray tech and did review the full reports. Postreduction film is improved but still subluxed laterally per the Radiologist below, if available at the time of this note: Xr Knee Right (1-2 Views) Result Date: 08/15/2020 Patient Name: MC JORGE Diagnostic Radiology ACCESSION EXAM DATE/TIME PROCEDURE ORDERING PROVIDER [id number] 08/15/2020 19:15 EST CR Knee 1 or 2 Views ALEXIS SANDHU Right CPT code 24200 Reason For Exam (CR Knee 1 or 2 Views Right) knee injury, pain Report RIGHT KNEE, 2 VIEWS: CLINICAL INDICATION: Posttraumatic right knee pain COMPARISON: No prior studies are available for comparison. Frontal and lateral views of the right knee were obtained. The bone density appears normal. No fracture or dislocation is noted. The joint spaces are within normal limits. There is mild infiltration of Hoffa's fat pad, otherwise the soft tissues are unremarkable. No joint effusion is appreciated. IMPRESSION: Negative examination of the knee. Report Dictated on --- Final --- Dictating Physician: DO MURGUIA ALFRED Signed Date and Time: 08/15/2020 7:21 pm Signed by: DO MURGUIA ALFRED Transcribed Date and Time: 08/15/2020 7:22 Xr Ankle Left (2 Views) Result Date: 08/15/2020 Patient Name: MC JORGE Diagnostic Radiology ACCESSION EXAM DATE/TIME PROCEDURE ORDERING PROVIDER [id number] 08/15/2020 19:15 EST CR Ankle 2 Views Left ALEXIS SANDHU CPT code 98179 Reason For Exam (CR Ankle 2 Views Left) ankle injury, deformity Report LEFT ANKLE, 2 VIEWS: INDICATION: Fall, ankle pain COMPARISON: No prior studies are available for comparison. Frontal and lateral views of the left ankle were obtained. There is fracture dislocation of the left ankle with fractures of the medial and lateral malleolar line as well as of the lateral margin of the distal tibia and lateral dislocation of the talus relative to the tibia. The joint spaces are within normal limits. No significant soft tissue abnormalities are noted. IMPRESSION: Bimalleolar fracture with dislocation of the left ankle. Report Dictated on --- Final --- Dictating Physician: DO MURGUIA ALFRED Signed Date and Time: 08/15/2020 7:24 pm Signed by: DO MURGUIA ALFRED Transcribed Date and Time: 08/15/2020 7:25 Xr Ankle Left (min 3 Views) Result Date: 08/15/2020 Patient Name: MC JORGE Diagnostic Radiology ACCESSION EXAM DATE/TIME PROCEDURE ORDERING PROVIDER [id number] 08/15/2020 19:33 EST CR Ankle 3+ Views Left ALEXIS SANDHU CPT code 56077 Reason For Exam (CR Ankle 3+ Views Left) post reduction Report LEFT ANKLE THREE VIEWS CLINICAL INDICATION: post reduction TECHNIQUE: Three views of the left ankle. COMPARISON: Earlier today FINDINGS: Fiberglas cast has been placed. There is partial reduction of the tibiotalar dislocation, now is subluxed laterally rather than dislocated. Displaced medial malleolar fracture and displaced fracture of the distal fibular metadiaphysis. IMPRESSION: 1. Partial reduction of previously seen dislocation at the tibiotalar joint, though subluxation remains. Report Dictated on --- Final --- Dictating Physician: MD PEÑA JOHN R Signed Date and Time: 08/15/2020 7:55 pm Signed by: MD PEÑA JOHN R Transcribed Date and Time: 08/15/2020 7:56 EMERGENCY DEPARTMENT COURSE and DIFFERENTIAL DIAGNOSIS/MDM: Vitals: Vitals: 08/15/20 1924 08/15/20 19208/15/20192708/15/201928 BP: 125/84 137/85 Pulse: 101 104 96 88 Resp: 18 Temp: TempSrc: SpO2: 100% 93% 100% 100% Weight: Height: Medications sodium chloride flush 0.9 % injection 3 mL (3 mLs Intravenous Given 08/15/202000) fentaNYL (SUBLIMAZE) injection 50 mcg (50 mcg Intravenous Given 08/15/201851) fentaNYL (SUBLIMAZE) injection 50 mcg (50 mcg Intravenous Given 08/15/20 190) propofol injection ( Intravenous Not Given 08/15/202000) Procedure Note - Procedural Sedation: The benefits, risks, and alternatives of procedural sedation were discussed with the patient. Questions were sought and answered. Verbal consent was obtained for the procedure. Oxygen was administered and the appropriate pre-procedural policies were followed. Cardiac, oxygenation and blood pressure monitoring occurred. Airway Assessment: Mallampati Class II - (soft palate, fauces & uvula are visible) ASA Classification: Class 2 - A normal healthy patient with mild systemic disease Prior to sedation a time out with nursing was called. Mc Jorge was given a total of 12ml of propofol and adequate procedural sedation was achieved. The patient tolerated the procedure without complications. Mc Jorge regained consciousness as expected and has recovered to their baseline mental status. 6 minutes of intra-service time was provided. MDM.: Patient has a left ankle fracture dislocation that is unstable. He also appears to have a right knee injury that may be a patellar tendon rupture. I did contact orthopedics. I do feel patient would benefit from specialist at [facility]. This is discussed with patient he agrees. I did notify the ER at [facility], and patient is accepted by Dr. Berrios, and patient will be seen by orthopedics on his arrival. Patient is improved after pain management with fentanyl, reduction of the ankle also somewhat helps his pain. He is neurovascular intact pre and post procedures. Patient is transferred in stable condition REVAL: CRITICAL CARE TIME Total CriticalCare time was 10 minutes, excluding separately reportable procedures. There was a high probability of clinically significant/life threatening deterioration in the patient's condition which required my urgent intervention. CONSULTS: None PROCEDURES: Unless otherwise noted below, none Ortho Injury Date/Time: 08/15/2020 8:05 PM Performed by: Alexis Sandhu MD Authorized by: Alexis Sandhu MD Consent: The procedure was performed in an emergent situation. Verbal consent obtained. Risks and benefits: risks, benefits and alternatives were discussed Consent given by: patient Patient understanding: patient states understanding of the procedure being performed Patient consent: the patient's understanding of the procedure matches consent given Patient identity confirmed: verbally with patient and arm band Injury location: ankle Location details: left ankle Injury type: fracture-dislocation Fracture type: bimalleolar Pre-procedure distal perfusion: diminished Pre-procedure neurological function: normal Pre-procedure range of motion: reduced Anesthesia: Local anesthesia used: no Sedation: Patient sedated: yes Sedation type: moderate (conscious) sedation Sedatives: propofol Manipulation performed: yes Skeletal traction used: yes Reduction successful: yes X-ray confirmed reduction: yes Immobilization: splint Splint type: sugar tong Supplies used: Ortho-Glass Post-procedure neurovascular assessment: post-procedure neurovascularly intact Post-procedure distal perfusion: normal Post-procedure neurological function: normal Post-procedure range of motion: improved FINAL IMPRESSION 1. Closed fracture dislocation of left ankle, initial encounter 2. Patellar tendon rupture, right, initial encounter DISPOSITION/PLAN DISPOSITION Decision To Transfer 08/15/2020 07:14:25 PM PATIENT REFERRED TO: No follow-up provider specified. DISCHARGE MEDICATIONS: New Prescriptions No medications on file (Please note: Portions of this note were completed with a voice recognition program.Efforts were made to edit the dictations but occasionally words and phrases are mis-transcribed.) Form [id number] @@ (electronically signed) Emergency Medicine Provider Alexis Sandhu MD 08/15/202008 [facility] ED Provider Note [facility] H6 TELEMETRY EMERGENCY DEPARTMENT ENCOUNTER Pt Name: Mc Jorge Birthdate 1975 Date of evaluation: 08/15/2020 Provider: Marleny Berrios, DO CHIEF COMPLAINT Chief Complaint Patient presents with ? Ankle Pain HISTORY OF PRESENT ILLNESS (Location/Symptom, Timing/Onset, Context/Setting, Quality, Duration, Modifying Factors, Severity) Note limiting factors. I wore a N-95 mask for the entirety of this encounter. Mc Jorge is a 45 y.o. male MHx HTN, HLD, NEMESIO who presents to the emergency department as transfer from [facility] for closed left ankle fracture/dislocation status post closed reduction and right patellar tendon rupture secondary to fall downhill prior to arrival at outside hospital. Arrives in right knee immobilizer and left ankle posterior splint. Patient states pain controlled. Denying nausea at present. Denies associated numbness/tingling. Nursing Notes were reviewed. REVIEW OF SYSTEMS (2+ for level 4; 10+ for level 5) Review of Systems Constitutional: Negative for chills and fever. HENT: Negative for congestion. Eyes: Negative for pain. Respiratory: Negative for shortness of breath. Cardiovascular: Negative for chest pain. Gastrointestinal: Negative for abdominal pain. Genitourinary: Negative for dysuria. Musculoskeletal: Positive for arthralgias and joint swelling. Negative for back pain. Skin: Negative for rash. Allergic/Immunologic: Negative for immunocompromised state. Neurological: Negative for headaches. Psychiatric/Behavioral: Negative for confusion. PAST MEDICAL HISTORY Past Medical History: Diagnosis Date ? Hypertension ? Myocarditis (HCC) history of ? Obesity ? Spasm esophogus. SURGICAL HISTORY Past Surgical History: Procedure Laterality Date ? CARDIAC CATHETERIZATION 2001 CURRENT MEDICATIONS Current Discharge Medication List CONTINUE these medications which have NOT CHANGED Details pantoprazole (PROTONIX) 40 MG tablet Take 40 mg by mouth daily Cyanocobalamin (VITAMIN B 12 PO) Take by mouth atorvastatin (LIPITOR) 10 MG tablet Take 10 mg by mouth daily clomiPHENE (CLOMID) 50 MG tablet Take 25 mg by mouth daily aspirin 81 MG tablet Take 81 mg by mouth daily cetirizine (ZYRTEC) 10 MG tablet Take 10 mg by mouth daily Folic Acid 0.8 MG CAPS Take by mouth daily Coenzyme Q10 (CO Q 10) 100 MG CAPS Take 400 mg by mouth daily DHEA 50 MG TABS Take by mouth Cholecalciferol (VITAMIN D3) 5000 UNITS TABS Take by mouth ALLERGIES Patient has no known allergies. FAMILY HISTORY Family History Problem Relation Age of Onset ? Lupus Mother ? Diabetes Father SOCIAL HISTORY Social History Socioeconomic History ? Marital status: Spouse name: None ? Number of children: None ? Years of education: None ? Highest education level: None Occupational History ? None Social Needs ? Financial resource strain: None ? Food insecurity Worry: None Inability: None ? Transportation needs Medical: None Non-medical: None Tobacco Use ? Smoking status: Never Smoker ? Smokeless tobacco: Never Used Substance and Sexual Activity ? Alcohol use: Yes Comment: sofie ? Drug use: No ? Sexual activity: None Lifestyle ? Physical activity Days per week: None Minutes per session: None ? Stress: None Relationships ? Social connections Talks on phone: None Gets together: None Attends zoroastrian service: None Active member of club or organization: None Attends meetings of clubs or organizations: None Relationship status: None ? Intimate partner violence Fear of current or ex partner: None Emotionally abused: None Physically abused: None Forced sexual activity: None Other Topics Concern ? None Social History Narrative ? None PHYSICAL EXAM (up to 7 for level 4, 8 or more for level 5) ED Triage Vitals [08/15/20 1847] BP Temp Temp Source Pulse Resp SpO2 Height Weight (!) 146/79 98.6 ?F (37 ?C) Oral 96 18 100 % 6' 2 (1.88 m) (!) 305 lb (138.3 kg) BP 109/79 Pulse 101 Temp 100.8 ?F (38.2 ?C) (Temporal) Resp 18 Ht 6' 2 (1.88 m) Wt (!) 138.3 kg (305 lb) SpO2 100% BMI 39.16 kg/m? Constitutional: Alert, awake HENT: mucous membranes moist Eyes: no discharge, nonicteric Neck: neck supple, trachea midline Lungs: CTABL, no wheezing, no rales Heart: RRR , no murmurs Vascular: radial 2/4 equal B/L Abdomen: Soft, nontender, ND Extremities: Right lower extremity in knee immobilizer, left lower extremity and posterior ankle splint, sensation intact bilateral toes. Able to wiggle bilateral toes. 2+ DP pulse right foot. Able to dorsiflex and plantarflex right ankle. Neuro: Alert and oriented, normal speech Skin: warm and dry Psych: cooperative, appropriate thought content and judgement Procedures DIAGNOSTIC RESULTS RADIOLOGY (Per Emergency Physician): CT lower extremity obtained for operative planning Interpretation per the R (more content not included)... Normal [facility] Ortho Injuryon 08-15-2020 Angela Darby 08/15/2020 8:09 PM Ortho Injury Date/Time: 08/15/2020 8:05 PM Performed by: Alexis Sandhu MD Authorized by: Alexis Sandhu MD Consent: The procedure was performed in an emergent situation. Verbal consent obtained. Risks and benefits: risks, benefits and alternatives were discussed Consent given by: patient Patient understanding: patient states understanding of the procedure being performed Patient consent: the patient's understanding of the procedure matches consent given Patient identity confirmed: verbally with patient and arm band Injury location: ankle Location details: left ankle Injury type: fracture-dislocation Fracture type: bimalleolar Pre-procedure distal perfusion: diminished Pre-procedure neurological function: normal Pre-procedure range of motion: reduced Anesthesia: Local anesthesia used: no Sedation: Patient sedated: yes Sedation type: moderate (conscious) sedation Sedatives: propofol Manipulation performed: yes Skeletal traction used: yes Reduction successful: yes X-ray confirmed reduction: yes Immobilization: splint Splint type: sugar tong Supplies used: Ortho-Glass Post-procedure neurovascular assessment: post-procedure neurovascularly intact Post-procedure distal perfusion: normal Post-procedure neurological function: normal Post-procedure range of motion: improved [facility] Work Phone: XR ANKLE LEFT (2 VIEWS)on [facility], [facility] - 08/15/2020 7:25 PM EST [facility]: [id number]iology ACCESSION EXAM DATE/TIME PROCEDURE ORDERING PROVIDER [id number] 08/15/2020 19:15 EST CR Ankle 2 Views Left ALEXIS SANDHU CPT code 05314 Reason For Exam (CR Ankle 2 Views Left) ankle injury, deformity Report LEFT ANKLE, 2 VIEWS: INDICATION: Fall, ankle pain COMPARISON: No prior studies are available for comparison. Frontal and lateral views of the left ankle were obtained. There is fracture dislocation of the left ankle with fractures of the medial and lateral malleolar line as well as of the lateral margin of the distal tibia and lateral dislocation of the talus relative to the tibia. The joint spaces are within normal limits. No significant soft tissue abnormalities are noted. IMPRESSION: Bimalleolar fracture with dislocation of the left ankle. Report Dictated on --- Final --- Dictating Physician: DO MURGUIA ALFRED Signed Date and Time: 08/15/2020 7:24 pm Signed by: DO MURGUIA ALFRED Transcribed Date and Time: 08/15/2020 7:25 [facility] Work Phone: [id number] Diagnostic Radiology ACCESSION EXAM DATE/TIME PROCEDURE ORDERING PROVIDER [id number] 08/15/2020 19:15 EST CR Ankle 2 Views Left ALEXIS SANDHU CPT code 30235 Reason For Exam (CR Ankle 2 Views Left) ankle injury, deformity Report LEFT ANKLE, 2 VIEWS: INDICATION: Fall, ankle pain COMPARISON: No prior studies are available for comparison. Frontal and lateral views of the left ankle were obtained. There is fracture dislocation of the left ankle with fractures of the medial and lateral malleolar line as well as of the lateral margin of the distal tibia and lateral dislocation of the talus relative to the tibia. The joint spaces are within normal limits. No significant soft tissue abnormalities are noted. IMPRESSION: Bimalleolar fracture with dislocation of the left ankle. Report Dictated on --- Final --- Dictating Physician: DO MURGUIA ALFRED Signed Date and Time: 08/15/2020 7:24 pm Signed by: DO MURGUIA ALFRED Transcribed Date and Time: 08/15/2020 7:25 [facility] Work Phone: XR ANKLE LEFT (MIN 3 VIEWS)o n 08-15-2020 [id number] Diagnostic Radiology ACCESSION EXAM DATE/TIME PROCEDURE ORDERING PROVIDER [id number] 08/15/2020 19:33 EST CR Ankle 3+ Views Left ALEXIS SANDHU CPT code 49787 Reason For Exam (CR Ankle 3+ Views Left) post reduction Report LEFT ANKLE THREE VIEWS CLINICAL INDICATION: post reduction TECHNIQUE: Three views of the left ankle. COMPARISON: Earlier today FINDINGS: Fiberglas cast has been placed. There is partial reduction of the tibiotalar dislocation, now is subluxed laterally rather than dislocated. Displaced medial malleolar fracture and displaced fracture of the distal fibular metadiaphysis. IMPRESSION: 1. Partial reduction of previously seen dislocation at the tibiotalar joint, though subluxation remains. Report Dictated on --- Final --- Dictating Physician: MD PEÑA JOHN R Signed Date and Time: 08/15/2020 7:55 pm Signed by: MD PEÑA JOHN R Transcribed Date and Time: 08/15/2020 7:56 [facility] Work Phone: [facility], [facility] - 08/15/2020 7:56 PM EST Patient Name: MC JORGE Diagnostic Radiology ACCESSION EXAM DATE/TIME PROCEDURE ORDERING PROVIDER [id number] 08/15/2020 19:33 EST CR Ankle 3+ Views Left ALEXIS SANDHU CPT code 03543 Reason For Exam (CR Ankle 3+ Views Left) post reduction Report LEFT ANKLE THREE VIEWS CLINICAL INDICATION: post reduction TECHNIQUE: Three views of the left ankle. COMPARISON: Earlier today FINDINGS: Fiberglas cast has been placed. There is partial reduction of the tibiotalar dislocation, now is subluxed laterally rather than dislocated. Displaced medial malleolar fracture and displaced fracture of the distal fibular metadiaphysis. IMPRESSION: 1. Partial reduction of previously seen dislocation at the tibiotalar joint, though subluxation remains. Report Dictated on --- Final --- Dictating Physician: MD PEÑA JOHN R Signed Date and Time: 08/15/2020 7:55 pm Signed by: MD PEÑA JOHN R Transcribed Date and Time: 08/15/2020 7:56 [facility] Work Phone: XR KNEE RIGHT (1-2 VIEWS)on 08-15-2020 Patient Name: MC JORGE Diagnostic Radiology ACCESSION EXAM DATE/TIME PROCEDURE ORDERING PROVIDER [id number] 08/15/2020 19:15 EST CR Knee 1 or 2 Views ALEXIS SANDHU Right CPT code 64753 Reason For Exam (CR Knee 1 or 2 Views Right) knee injury, pain Report RIGHT KNEE, 2 VIEWS: CLINICAL INDICATION: Posttraumatic right knee pain COMPARISON: No prior studies are available for comparison. Frontal and lateral views of the right knee were obtained. The bone density appears normal. No fracture or dislocation is noted. The joint spaces are within normal limits. There is mild infiltration of Hoffa's fat pad, otherwise the soft tissues are unremarkable. No joint effusion is appreciated. IMPRESSION: Negative examination of the knee. Report Dictated on --- Final --- Dictating Physician: DO MURGUIA ALFRED Signed Date and Time: 08/15/2020 7:21 pm Signed by: DO MURGUIA ALFRED Transcribed Date and Time: 08/15/2020 7:22 [facility] Work Phone: [facility], [facility] In[facility] - 08/15/2020 7:22 PM EST [facility]: [id number] Diagnostic Radiology ACCESSION EXAM DATE/TIME PROCEDURE ORDERING PROVIDER [id number] 08/15/2020 19:15 EST CR Knee 1 or 2 Views ALEXIS SANDHU Right CPT code 60649 Reason For Exam (CR Knee 1 or 2 Views Right) knee injury, pain Report RIGHT KNEE, 2 VIEWS: CLINICAL INDICATION: Posttraumatic right knee pain COMPARISON: No prior studies are available for comparison. Frontal and lateral views of the right knee were obtained. The bone density appears normal. No fracture or dislocation is noted. The joint spaces are within normal limits. There is mild infiltration of Hoffa's fat pad, otherwise the soft tissues are unremarkable. No joint effusion is appreciated. IMPRESSION: Negative examination of the knee. Report Dictated on --- Final --- Dictating Physician: DO MURGUIA ALFRED Signed Date and Time: 08/15/2020 7:21 pm Signed by: DO MURGUIA ALFRED Transcribed Date and Time: 08/15/2020 7:22 [facility] Work Phone: Cardiac 04-16-2020 Cholesterol [Mass/Vol] 116 mg/dL 100 - 199 mg/dL [facility] Cholesterol in HDL [Mass/Vol] 26 mg/dL Low >39 mg/dL [facility] Cholesterol in LDL [Mass/Vol] 55 mg/dL 0 - 99 mg/dL [facility] Triglyceride [Mass/Vol] 213 mg/dL High 0 - 149 mg/dL [facility] Hematologyon 04-16-2020 Basophils (Bld) [#/Vol] 0.0 10*3/uL 0.0 - 0.2 x10E3/uL [facility] Basophils/100 WBC (Bld) 0 % Not Estab. % [facility] Eosinophils (Bld) [#/Vol] 0.1 10*3/uL 0.0 - 0.4 x10E3/uL [facility] Eosinophils/100 WBC (Bld) 1 % Not Estab. % [facility] Hematocrit (Bld) [Volume fraction] 44.6 % 37.5 - 51.0 % [facility] Hemoglobin (Bld) [Mass/Vol] 14.7 g/dL 13.0 - 17.7 g/dL [facility] Lymphocytes (Bld) [#/Vol] 1.7 10*3/uL 0.7 - 3.1 x10E3/uL [facility] Lymphocytes/100 WBC (Bld) 35 % Not Estab. % [facility] MCH (RBC) [Entitic mass] 31.1 pg 26.6 - 33.0 pg [facility] MCV (RBC) [Entitic vol] 95 fL 79 - 97 fL [facility] Monocytes (Bld) [#/Vol] 0.4 10*3/uL 0.1 - 0.9 x10E3/uL [facility] Monocytes/100 WBC (Bld) 8 % Not Estab. % [facility] Neutrophils (Bld) [#/Vol] 2.7 10*3/uL 1.4 - 7.0 x10E3/uL [facility] Neutrophils/100 WBC (Bld) 56 % Not Estab. % [facility] Platelets (Bld) [#/Vol] 201 10*3/uL 150 - 450 x10E3/uL [facility] RBC (Bld) [#/Vol] 4.72 10*6/uL 4.14 - 5.80 x10E6/uL [facility] WBC (Bld) [#/Vol] 4.9 10*3/uL 3.4 - 10.8 x10E3/uL [facility] Metabolic Panelon 04-16-2020 Albumin [Mass/Vol] 4.4 g/dL 4.0 - 5.0 g/dL [facility] ALP [Catalytic activity/Vol] 62 U/L 39 - 117 IU/L [facility] ALT [Catalytic activity/Vol] 26 U/L 0 - 44 IU/L [facility] AST [Catalytic activity/Vol] 21 U/L 0 - 40 IU/L [facility] Bilirubin [Mass/Vol] 0.7 mg/dL 0.0 - 1.2 mg/dL [facility] Calcium [Mass/Vol] 9.1 mg/dL 8.7 - 10.2 mg/dL [facility] Chloride [Moles/Vol] 105 mmol/L 96 - 106 mmol/L [facility] CO2 [Moles/Vol] 21 mmol/L 20 - 29 mmol/L [facility] Creatinine [Mass/Vol] 0.96 mg/dL 0.76 - 1.27 mg/dL [facility] Glucose [Mass/Vol] 102 mg/dL High 65 - 99 mg/dL [facility] Potassium [Moles/Vol] 4.2 mmol/L 3.5 - 5.2 mmol/L [facility] Protein [Mass/Vol] 6.8 g/dL 6.0 - 8.5 g/dL [facility] Sodium [Moles/Vol] 139 mmol/L 134 - 144 mmol/L [facility] Urea nitrogen [Mass/Vol] 15 mg/dL 6 - 24 mg/dL [facility] Urea nitrogen/Creatini ne [Mass ratio] 16 mg/mg 9 - [facility] Otheron 04-16-2020 Albumin/Globulin [Mass ratio] 1.8 {ratio} 1.2 - 2.2 [facility] Cholesterol in VLDL [Mass/Vol] 35 mg/dL 5 - 40 mg/dL [facility] Erythrocyte distribution width (RBC) [Ratio] 13.5 % 11.6 - 15.4 % [facility] GFR/1.73 sq M predicted among blacks CKD-EPI (S/P/Bld) [Vol rate/Area] 110 mL/min/1.73 >59 mL/min/1.7 3 [facility] GFR/1.73 sq M predicted among non-blacks CKD-EPI (S/P/Bld) [Vol rate/Area] 95 mL/min/1.73 >59 mL/min/1.7 3 [facility] Globulin (S) [Mass/Vol] 2.4 g/dL 1.5 - 4.5 g/dL [facility] Immature granulocytes (Bld) [#/Vol] 0.0 10*3/uL 0.0 - 0.1 x10E3/uL [facility] Immature granulocytes/100 WBC (Bld) 0 % Not Estab. % [facility] MCHC (RBC) [Mass/Vol] 33.0 g/dL 31.5 - 35.7 g/dL [facility] Thyroidon 04-16-2020 TSH Qn 2.770 uIU/mL 0.450 - 4.500 uIU/mL [facility] IONIZED CAon 09-13-2018 IONIZED CA 1.31 MMOL/L Normal 1.12-1.32 [facility] Comment on above: Order Comment: Abhishek s: M : 8 hours post op Performed By: #### L [id number] #### [facility] [address] [place], [place] [id number] INTRAOPERAT PTHon 09-12-2018 INTRAOPERAT PTH 25 PG/ML Normal 18.5-88.0 [facility] Comment on above: Order Comment: Abhishek s: Angela Result Comment: RESU LTS CALLED TO AND READ BACK BY YADIEL HALLMAN AT 1315 09/12/18 BY KATHY JULES 09/12/18 1315: INTRAOPERAT PTH previously reported as: 25 PG/ML Performed By: #### L [id number] #### [facility] [address] [place] [address] INTRAOPERAT PTH 167 PG/ML High 18.5-88.0 [facility] Comment on above: Order Comment: Abhishek s: M Result Comment: RESU LTS CALLED TO AND READ BACK BY YONG ANGELES RN AT 1046 09/12/18 BY KATHY JULES 09/12/18 1046: INTRAOPERAT PTH previously reported as: 167 H PG/ML Performed By: #### L [id number] #### [facility] [address] [place] [id number] IONIZED CAon 09-12-2018 IONIZED CA 1.38 MMOL/L Critically high 1.12-1.32 [facility] Comment on above: Order Comment: Campu s: M : 8 hours post op Result Comment: CRIT ICAL VALUE(S) VERIFIED AND CALLED TO AND READ BACK BY Balbina PERERA AT 2155 09/12/18 BY BE JUDGE Performed By: #### L [id number] #### [facility] [address] [id number] # [phone] ORon 09-12-[address] [facility] OR DATE OF SERVICE: PREOPERATIVE DIAGNOSIS: Primary hyperparathyroidism. POSTOPERATIVE DIAGNOSES: 1. Primary hyperparathyroidism (left inferior parathyroid adenoma). 2. Left thyroid goiter. OPERATION: 1. Parathyroid exploration with removal of left inferior parathyroid adenoma with intraoperative PTH monitoring. 2. Left thyroid lobectomy. SURGEON: Jesu Bonilla MD ANESTHESIA: General. INDICATIONS: This 43-year-old male presents with primary hyperparathyroidism with an elevated serum calcium level in the face of an elevated serum PTH level. He has undergone a preoperative parathyroid imaging study which seems to indicate a possible autonomous focus in the inferior aspect of the left thyroid bed. He has been recommended parathyroid exploration with removal of the autonomous gland or glands to restore normal calcium metabolism. The risks of the procedure, mainly nerve injury, hoarseness, bleeding, infection, and hypocalcemia have been discussed and the patient has elected to proceed. OPERATIVE FINDINGS: The patient had a parathyroid adenoma within the thyroid capsule on the posterior inferior aspect of the left thyroid lobe. The left thyroid lobe was enlarged and nodular and was removed in order to be sure that the entire parathyroid was removed and also to be sure that there were no occult findings with in this enlarged nodular lobe. The patient's preoperative PTH level was 167 pg/mL. Following removal of the left inferior parathyroid adenoma, the intraoperative PTH dropped to 25 pg/mL at a 10-minute draw. All 4 parathyroid glands were identified. The other 3 were clinically normal. PROCEDURE: The patient was brought into the operating room, placed on the operating table in the supine position. Orotracheal intubation general anesthesia was induced without complication. A shoulder roll was placed beneath the patient's shoulders and the head was placed in a general extension. The anterior neck was prepped and draped in a sterile fashion. The planned incision would be a limited thyroidectomy incision placed in the collar line of the neck just above the sternal notch. This was locally infiltrated with 1% lidocaine with 1:100,000 concentration of epinephrine. After adequate time for vasoconstriction, the incision was made and carried through the underlying platysma muscle. Superior and inferior subplatysmal flaps were elevated and held in position with a self-retaining retractor. Dissection was carried out in [facility] PATIENT NAME: MC JORGE [address] [facility] [address] Farrell MEDICAL REC #: [id number] [place] [address] ADMIT DATE: DISCHARGE DATE: 09/13/18 OPERATIVE REPORT ATTENDING PHY: Jesu Bonilla MD the midline of the neck between the strap muscles, which were retracted laterally. Initial blunt digital and instrument dissection was carried out around the left thyroid lobe, which was noted to be enlarged and mildly nodular. It was also hypervascular. Lateral feeding vessels were controlled and the lobe was reflected from lateral to medial. There was intense vascularity around the inferior pole of the left thyroid lobe, more prominent than usual. Identified within the capsule of the left inferior thyroid was darkened tissue consistent with a probable parathyroid adenoma within the thyroid capsule and thyroid tissue. Given the size of the lobe and the nodularity, I elected to proceed with a left thyroid lobectomy to be sure that the entire adenoma would be removed along with this enlarged thyroid lobe. The left recurrent laryngeal nerve was identified and carefully followed as it entered the larynx and was not injured. Near the entrance of the recurrent nerve into the larynx, the left superior parathyroid gland was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 of 3 - 3-dose series) Hepatitis B Vaccine (1 of 3 - 3-dose series) [facility] Start: 1974 Hepatitis C screening Hepatitis C sc reen [facility] Work Phone: End: 08-18-2020 FL Greater Than 1 Hour FL Greater Than 1 Hour Imaging Routine Once for 1 Occurrences starting 08/18/2020 until 08/18/2020 [facility] Work Phone: Comment on above: Once for 1 Occurrenc es starting 08/18/2020 until 08/18/2020 FL Greater Than 1 Hour FL Greate r Than 1 Hour Imaging Routine 08/18/2020 8:04 AM EST [facility] Work Phone: End: 08-15-2020 FL LESS THAN 1 HOUR FL LESS THAN 1 HOUR Imaging Routine Once for 1 Occurrences starting 08/15/2020 until 08/15/2020 [facility] Work Phone: Comment on above: Once for 1 Occurrenc es starting 08/15/2020 until 08/15/2020 FL LESS THAN 1 HOUR FL LESS THAN 1 HOUR Imaging STAT 08/15/2020 10:34 PM EST [facility] Work Phone: Oxygen therapy [[facility] Data Set] Initiate Oxygen Therapy Protocol Respiratory Care Routine Daily until discontinued starting 08/16/2020 [facility] Work Phone: Comment on above: Daily until disconti nued starting 08/16/2020 Immunizations Immunization Date Immunization Notes Care Provider Nadia pascual No information available. Samina Prince LPN [facility] Work Phone: Payers Date Payer Category Payer Self-pay 2020 Unknown MARYELLEN PADRON LINDA PPO [id number] 2020-Present [phone] [id number] [place] [address] PPO [id number] 2016 Unknown [id number] 1974 Unknown [id number] 1974 Unknown [id number] 1974 Unknown [id number] Unknown [id number] Unknown [id number] Unknown [id number] Unknown [id number] Social History Date Type Detail Facility Start: 01-04-2017 End: 01-01-2025 Tobacco smoking status NHIS Never smoker [facility] Start: 01-04-2017 End: 12-19-2022 Tobacco use and exposure Never used [facility] Start: 01-04-2017 Alcohol intake Current non-dr open shank coverer of alcohol (finding) [facility] Start: 1975 Sex Assigned At Not on file [facility] Start: 08-19-2020 End: 04-30-2023 Alcohol intake Current drinker of alcohol (finding) [employer] Work Phone: Start: 11-10-2016 Alcohol Comment sofie [employer] Work Phone: Exposure to SARS-CoV-2 (event) Not sure [employer] Work Phone: Start: 12-19-2022 [facility] Start: 12-19-2022 End: 04-30-2023 History of Social function [facility] Start: 12-19-2022 End: 04-30-2023 Tobacco use panel [facility] Adult Depression Screening Assessment 0 [facility] Start: 1975 [facility] Assigned At [facility] Start: 12-20-2022 Gender identity Identifies as male gender (finding) [facility] Start: 12-20-2022 Sexual orientation Heterosexual (fin ding) [facility] Tobacco smoking status NHIS Unknown if ever smoked [facility] Work Phone: NEGATED: Highlighted rowStart: 10-18-2017 End: 10-18-2017 Alcohol use Never smoker [facility] Work Phone: NEGATED: Highlighted rowStart: 10-18-2017 End: 10-18-2017 Details of drug misuse behavior DRUG USE No [facility] Work Phone: NEGATED: Highlighted rowStart: 10-18-2017 End: 10-18-2017 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 [facility] Work Phone: NEGATED: Highlighted rowStart: 10-18-2017 End: 10-18-2017 Assertion Never smoker [facility] Work Phone: Clinical Notes 08-23-2020 to 01-01-2025 Note Date & Type Note Facility 01-01-2025 Chief complaint+R deja for visit Narrative Melanoma January 01, 2025 10:5 2am [place] Office procedure February 03, 2025 11:02am Reason for Visit Admit Date Melanoma in situ January 01, 2025 10:5 2am [facility] Work Phone: [phone]) [phone] Evaluation note* Diagnosis Onset Date Resolution Status Admit Date Melanoma in situ acute December 10:52am [facility] Work Phone: [phone]) [phone] NoteHNO ID: [id number] Author: Charanjit Dominguez MD Service: ? Author Type: Physician Type: Progress Notes Filed: 04/30/2023 3:10 PM Note Text: Mc Jorge is a 47 year old male who presents with Cough (Coughing up yellow mucus for 1 week ), Sinusitis (Chest congestion face pressure drainage for 1 week ), and Sore Throat (Sore throat hard to swallow for 1 week ) The history is provided by the patient. No manufacturing clerk was used. Cough This is a new problem. The current episode started more than 1 week ago. The problem occurs constantly. The problem has been gradually worsening. The cough is Productive of purulent sputum. There has been no fever. Associated symptoms include ear congestion, headaches and sore throat. Pertinent negatives include no chills, no ear pain, no myalgias, no shortness of breath and no wheezing. He has tried decongestants for the symptoms. The treatment provided mild relief. Sinusitis Associated symptoms include congestion, coughing, headaches and a sore throat. Pertinent negatives include no chills, ear pain or shortness of breath. Sore Throat Associated symptoms include congestion, coughing and headaches. Pertinent negatives include no ear pain or shortness of breath. PAST MEDICAL HISTORY Diagnosis Date Allergic rhinitis Hyperlipidemia Hypogonadism, male Myocarditis (HCC) 04/2014 Obesity Vitamin B12 deficiency ACTIVE PROBLEM LIST Obesity Myocarditis (Hcc) Hypogonadism, Male Hyperlipidemia Current Outpatient Medications Medication Sig Dispense Refill pantoprazole DR (PROTONIX) 40 mg tablet atorvastatin (LIPITOR) 10 mg tablet Take 1 tablet by mouth once daily. cetirizine (ZYRTEC) 10 mg tablet Take 10 mg by mouth once daily. folic acid 0.8 mg cap Take 0.8 mg by mouth once daily. coenzyme Q10 (COENZYME Q-10) 100 mg cap capsule Take 400 mg by mouth once daily. prasterone, dhea, (DHEA) 50 mg tab Take 50 mg by mouth once daily. cholecalciferol (VITAMIN D3) 5,000 unit tab Take 1 tablet by mouth once daily. cyanocobalamin, vitamin B-12, 5,000 mcg subl Take 1 tablet by mouth once daily. clomiPHENE (SEROPHENE) 50 mg tablet Take 1 tablet by mouth once daily. 60 tablet 1 aspirin, enteric coated (ASPIRIN, ENTERIC COATED) 81 mg EC tablet Take 81 mg by mouth once daily. (Patient not taking: Reported on 12/19/2022) fluticasone (FLONASE) 50 mcg/actuation nasal spray Use 1 Loyal in each nostril twice daily. (Patient not taking: Reported on 12/19/2022) No current facility-administered medications for this visit. Social History Tobacco Use Smoking status: Never Smokeless tobacco: Never Vaping Use Vaping Use: Never used Substance Use Topics Alcohol use: Yes Comment: rare Drug use: No Alcohol Use: Yes (rare) Tobacco Use: Never FAMILY HISTORY Problem Relation Age of Onset other (Lupus) Mother Diabetes Father Review of Systems Constitutional: Negative for chills, fever and malaise/fatigue. HENT: Positive for congestion, sinus pain and sore throat. Negative for ear pain. Respiratory: Positive for cough and sputum production. Negative for shortness of breath and wheezing. Musculoskeletal: Negative for myalgias. Neurological: Positive for headaches. Negative for dizziness. BP 138/82 Pulse 108 Temp (Src) 98.2 (Oral) Resp 18 Wt 310 lb (140.6kg) SpO2 97% Physical Exam Vitals and nursing note reviewed. Constitutional: Appearance: Normal appearance. He is not ill-appearing. HENT: Head: Comments: Frontal and maxillary sinus tenderness bilaterally Right Ear: Tympanic membrane normal. Left Ear: Tympanic membrane normal. Nose: Congestion and rhinorrhea present. Mouth/Throat: Mouth: Mucous membranes are moist. Pharynx: Oropharynx is clear. Eyes: Extraocular Movements: Extraocular movements intact. Conjunctiva/sclera: Conjunctivae normal. Pupils: Pupils are equal, round, and reactive to light. Cardiovascular: Rate and Rhythm: Normal rate and regular rhythm. Heart sounds: Normal heart sounds. Pulmonary: Effort: Pulmonary effort is normal. Breath sounds: Normal breath sounds. Lymphadenopathy: Cervical: Cervical adenopathy present. Skin: General: Skin is warm and dry. Neurological: General: No focal deficit present. Mental Status: He is alert and oriented to person, place, and time. ASSESSMENT/PLAN: 1. Acute non-recurrent pansinusitis - ICD9: 461.8, ICD10: J01.40 - Supportive care with plenty of fluids, rest, and analgesia prn. - AMOXICILLIN 875 MG-POTASSIUM CLAVULANATE 125 MG TABLET Charanjit Dominguez [facility]11-13-2023 Instructions* Patient Instructions* Charanjit Dominguez MD - 04/30/2023 3:00 PM EST SINUSITIS: You have sinusitis, an infection of the sinus cavities around the nose. This infection usually follows a respiratory illness; it can also be related to allergies, changes in atmospheric pressure (flying, diving), or anything that blocks nasal drainage. Symptoms include: headache, facial pain, a thick nasal discharge, congestion, and cough. The treatment includes antibiotic therapy, increasing oral fluids, and pain medication if needed. Nose spray decongestants (Afrin, Clint-Synephrine) and oral decongestants may be needed to reduce congestion and drainage. Rarely the sinus must be irrigated to remove the infected material. Sinusitis can lead to serious complications by spreading to other areas such as the eye or brain. Please call your doctor or return here right away if you have any of the following more serious symptoms: Unusual swelling around the eye or trouble seeing. Increasing pain, severe headache, or toothache. Nausea, vomiting, or unusual drowsiness. [facility] History of Present illness Narrative* Charanjit Dominguez MD - 04/30/2023 2:49 PM EST Mc Jorge is a 47 year old male who presents with Cough (Coughing up yellow mucus for 1 week ), Sinusitis (Chest congestion face pressure drainage for 1 week ), and Sore Throat (Sore throat hard to swallow for 1 week ) The history is provided by the patient. No manufacturing clerk was used. Cough This is a new problem. The current episode started more than 1 week ago. The problem occurs constantly. The problem has been gradually worsening. The cough is Productive of purulent sputum. There hasbeen no fever. Associated symptoms include ear congestion, headaches and sore throat. Pertinent negatives include no chills, no ear pain, no myalgias, no shortness of breath and no wheezing. He has tried decongestants for the symptoms. The treatment provided mild relief. Sinusitis Associated symptoms include congestion, coughing, headaches and a sore throat. Pertinent negatives include no chills, ear pain or shortness of breath. Sore Throat Associated symptoms include congestion, coughing and headaches. Pertinent negatives include no ear pain or shortness of breath. PAST MEDICAL HISTORY Diagnosis Date Allergic rhinitis Hyperlipidemia Hypogonadism, male Myocarditis (HCC) 04/2014 Obesity Vitamin B12 deficiency ACTIVE PROBLEM LIST Obesity Myocarditis (Hcc) Hypogonadism, Male Hyperlipidemia Current Outpatient Medications Medication Sig Dispense Refill pantoprazole DR (PROTONIX) 40 mg tablet atorvastatin (LIPITOR) 10 mg tablet Take 1 tablet by mouth once daily. cetirizine (ZYRTEC) 10 mg tablet Take 10 mg by mouth once daily. folic acid 0.8 mg cap Take 0.8 mg by mouth once daily. coenzyme Q10 (COENZYME Q-10) 100 mg cap capsule Take 400 mg by mouth once daily. prasterone, dhea, (DHEA) 50 mg tab Take 50 mg by mouth once daily. cholecalciferol (VITAMIN D3) 5,000 unit tab Take 1 tablet by mouth once daily. cyanocobalamin, vitamin B-12, 5,000 mcg subl Take 1 tablet by mouth once daily. clomiPHENE (SEROPHENE) 50 mg tablet Take 1 tablet by mouth once daily. 60 tablet 1 aspirin, enteric coated (ASPIRIN, ENTERIC COATED) 81 mg EC tablet Take 81 mg by mouth once daily. (Patient not taking: Reported on 12/19/2022) fluticasone (FLONASE) 50 mcg/actuation nasal spray Use 1 Loyal in each nostril twice daily. (Patient not taking: Reported on 12/19/2022) No current facility-administered medications for this visit. Social History Tobacco Use Smoking status: Never Smokeless tobacco: Never Vaping Use Vaping Use: Never used Substance Use Topics Alcohol use: Yes Comment: rare Drug use: No Alcohol Use: Yes (rare) Tobacco Use: Never FAMILY HISTORY Problem Relation Age of Onset other (Lupus) Mother Diabetes Father Review of Systems Constitutional: Negative for chills, fever and malaise/fatigue. HENT: Positive for congestion, sinus pain and sore throat. Negative for ear pain. Respiratory: Positive for cough and sputum production. Negative for shortness of breath and wheezing. Musculoskeletal: Negative for myalgias. Neurological: Positive for headaches. Negative for dizziness. BP 138/82 Pulse 108 Temp (Src) 98.2 (Oral) Resp 18 Wt 310 lb (140.6kg) SpO2 97% Physical Exam Vitals and nursing note reviewed. Constitutional: Appearance: Normal appearance. He is not ill-appearing. HENT: Head: Comments: Frontal and maxillary sinus tenderness bilaterally Right Ear: Tympanic membrane normal. Left Ear: Tympanic membrane normal. Nose: Congestion and rhinorrhea present. Mouth/Throat: Mouth: Mucous membranes are moist. Pharynx: Oropharynx is clear. Eyes: Extraocular Movements: Extraocular movements intact. Conjunctiva/sclera: Conjunctivae normal. Pupils: Pupils are equal, round, and reactive to light. Cardiovascular: Rate and Rhythm: Normal rate and regular rhythm. Heart sounds: Normal heart sounds. Pulmonary: Effort: Pulmonary effort is normal. Breath sounds: Normal breath sounds. Lymphadenopathy: Cervical: Cervical adenopathy present. Skin: General: Skin is warm and dry. Neurological: General: No focal deficit present. Mental Status: He is alert and oriented to person, place, and time. ASSESSMENT/PLAN: 1. Acute non-recurrent pansinusitis - ICD9: 461.8, ICD10: J01.40 - Supportive care with plenty of fluids, rest, and analgesia prn. - AMOXICILLIN 875 MG-POTASSIUM CLAVULANATE 125 MG TABLET Charanjit Dominguez MD [facility] NoteHNO ID: [id number] Author: Candice Aisha MD Mady Service: ? Author Type: Physician Type: Progress Notes Filed: 12/19/2022 11:00 AM Note Text: Mc Jorge is a 47 year old male who presents with Sore Throat (States he feels like he has a coating on his throat and tongue. ) and Headache HPI patient is a 47-year-old male who presented to [facility] this morning with a complaint of the sore throat and white coating on his tongue and throat with slightly headache the symptoms started 2 weeks ago patient tried [id number] medication without relief and due to concern to patient here for further evaluation and treatment. PAST MEDICAL HISTORY Diagnosis Date Allergic rhinitis Hyperlipidemia Hypogonadism, male Myocarditis (HCC) 04/2014 Obesity Vitamin B12 deficiency ACTIVE PROBLEM LIST Obesity Myocarditis (Hcc) Hypogonadism, Male Hyperlipidemia Current Outpatient Medications Medication Sig Dispense Refill pantoprazole DR (PROTONIX) 40 mg tablet atorvastatin (LIPITOR) 10 mg tablet Take 1 tablet by mouth once daily. cetirizine (ZYRTEC) 10 mg tablet Take 10 mg by mouth once daily. cholecalciferol (VITAMIN D3) 5,000 unit tab Take 1 tablet by mouth once daily. cyanocobalamin, vitamin B-12, 5,000 mcg subl Take 1 tablet by mouth once daily. clomiPHENE (SEROPHENE) 50 mg tablet Take 1 tablet by mouth once daily. 60 tablet 1 clotrimazole (MYCELEX) 10 mg kim Use 1 Kim as instructed five times daily for 14 days. 70 tablet 0 folic acid 0.8 mg cap Take 0.8 mg by mouth once daily. (Patient not taking: Reported on 12/19/2022) coenzyme Q10 (COENZYME Q-10) 100 mg cap capsule Take 400 mg by mouth once daily. (Patient not taking: Reported on 12/19/2022) prasterone, dhea, (DHEA) 50 mg tab Take 50 mg by mouth once daily. (Patient not taking: Reported on 12/19/2022) aspirin, enteric coated (ASPIRIN, ENTERIC COATED) 81 mg EC tablet Take 81 mg by mouth once daily. (Patient not taking: Reported on 12/19/2022) fluticasone (FLONASE) 50 mcg/actuation nasal spray Use 1 Loyal in each nostril twice daily. (Patient not taking: Reported on 12/19/2022) No current facility-administered medications for this visit. Social History Tobacco Use Smoking status: Never Smokeless tobacco: Never Vaping Use Vaping Use: Never used Substance Use Topics Alcohol use: Yes Comment: rare Drug use: No Alcohol Use: Yes (rare) Tobacco Use: Never FAMILY HISTORY Problem Relation Age of Onset other (Lupus) Mother Diabetes Father Review of Systems Constitutional: Negative for chills, fever, malaise/fatigue and weight loss. HENT: Negative for congestion and sinus pain. Respiratory: Negative for cough and shortness of breath. Cardiovascular: Negative for chest pain and palpitations. Gastrointestinal: Negative for abdominal pain, heartburn, nausea and vomiting. Musculoskeletal: Negative for myalgias. Skin: Negative for rash. Neurological: Negative for dizziness. BP 132/86 Pulse 91 Temp (Src) 97 (Temporal) Resp 16 Ht 6' 2 (1.88m) Wt 318 lb 9.6 oz (144.5kg) SpO2 97% BMI 40.89 kg/(m2). Physical Exam Vitals and nursing note reviewed. Constitutional: General: He is not in acute distress. Appearance: Normal appearance. HENT: Right Ear: Tympanic membrane and ear canal normal. Left Ear: Tympanic membrane and ear canal normal. Nose: Nose normal. No congestion or rhinorrhea. Mouth/Throat: Mouth: Mucous membranes are moist. Comments: Right and left buccal mucosa and tongue white cheeselike material coating Eyes: Extraocular Movements: Extraocular movements intact. Conjunctiva/sclera: Conjunctivae normal. Pupils: Pupils are equal, round, and reactive to light. Cardiovascular: Rate and Rhythm: Regular rhythm. Heart sounds: Normal heart sounds. Pulmonary: Effort: Pulmonary effort is normal. Breath sounds: Normal breath sounds. Abdominal: Palpations: Abdomen is soft. Tenderness: There is no abdominal tenderness. Musculoskeletal: Cervical back: Normal range of motion. Lymphadenopathy: Cervical: No cervical adenopathy. Skin: Findings: No rash. ASSESSMENT/PLAN: 1. Oropharyngeal candidiasis - ICD9: 112.0, ICD10: B37.0 Complications of the disease were discussed with the patient. Start Mycelex kim discussed side effects of the medication with the patient Encouraged to get plenty of rest, drink lots of clear liquids and use Tylenol or Ibuprofen for fever and comfort. To be seen primary care physician in 3 to 5 days if no improvement, sooner if worsening of symptoms. - CLOTRIMAZOLE 10 MG KIM Son Aisha Rehman, [facility]07-04-2023 History of Present illness Narrative* Candice Rehman MD - 12/19/2022 10:56 AM EDT Mc Jorge is a 47 year old male who presents with Sore Throat (States he feels like he has a coating on his throat and tongue. ) and Headache HPI patient is a 47-year-old male who presented to [facility] this morning with a complaintof the sore throat and white coating on his tongue and throat with slightly headache the symptoms started 2 weeks ago patient tried [id number] medication without relief and due to concern to patient here for further evaluation and treatment. PAST MEDICAL HISTORY Diagnosis Date Allergic rhinitis Hyperlipidemia Hypogonadism, male Myocarditis (HCC) 04/2014 Obesity Vitamin B12 deficiency ACTIVE PROBLEM LIST Obesity Myocarditis (Hcc) Hypogonadism, Male Hyperlipidemia Current Outpatient Medications Medication Sig Dispense Refill pantoprazole DR (PROTONIX) 40 mg tablet atorvastatin (LIPITOR) 10 mg tablet Take 1 tablet by mouth once daily. cetirizine (ZYRTEC) 10 mg tablet Take 10 mg by mouth once daily. cholecalciferol (VITAMIN D3) 5,000 unit tab Take 1 tablet by mouth once daily. cyanocobalamin, vitamin B-12, 5,000 mcg subl Take 1 tablet by mouth once daily. clomiPHENE (SEROPHENE) 50 mg tablet Take 1 tablet by mouth once daily. 60 tablet 1 clotrimazole (MYCELEX) 10 mg kim Use 1 Kim as instructed five times daily for 14 days. 70 tablet 0 folic acid 0.8 mg cap Take 0.8 mg by mouth once daily. (Patient not taking: Reported on 12/19/2022) coenzyme Q10 (COENZYME Q-10) 100 mg cap capsule Take 400 mg by mouth once daily. (Patient not taking: Reported on 12/19/2022) prasterone, dhea, (DHEA) 50 mg tab Take 50 mg by mouth once daily. (Patient not taking: Reported on12/19/2022) aspirin, enteric coated (ASPIRIN, ENTERIC COATED) 81 mg EC tablet Take 81 mg by mouth once daily. (Patient not taking: Reported on 12/19/2022) fluticasone (FLONASE) 50 mcg/actuation nasal spray Use 1 Loyal in each nostril twice daily. (Patient not taking: Reported on 12/19/2022) No current facility-administered medications for this visit. Social History Tobacco Use Smoking status: Never Smokeless tobacco: Never Vaping Use Vaping Use: Never used Substance Use Topics Alcohol use: Yes Comment: rare Drug use: No Alcohol Use: Yes (rare) Tobacco Use: Never FAMILY HISTORY Problem Relation Age of Onset other (Lupus) Mother Diabetes Father Review of Systems Constitutional: Negative for chills, fever, malaise/fatigue and weight loss. HENT: Negative for congestion and sinus pain. Respiratory: Negative for cough and shortness of breath. Cardiovascular: Negative for chest pain and palpitations. Gastrointestinal: Negative for abdominal pain, heartburn, nausea and vomiting. Musculoskeletal: Negative for myalgias. Skin: Negative for rash. Neurological: Negative for dizziness. BP 132/86 Pulse 91 Temp (Src) 97 (Temporal) Resp 16 Ht 6' 2 (1.88m) Wt 318 lb 9.6 oz (144.5kg) SpO2 97% BMI 40.89 kg/(m^2). Physical Exam Vitals and nursing note reviewed. Constitutional: General: He is not in acute distress. Appearance: Normal appearance. HENT: Right Ear: Tympanic membrane and ear canal normal. Left Ear: Tympanic membrane and ear canal normal. Nose: Nose normal. No congestion or rhinorrhea. Mouth/Throat: Mouth: Mucous membranes are moist. Comments: Right and left buccal mucosa and tongue white cheeselike material coating Eyes: Extraocular Movements: Extraocular movements intact. Conjunctiva/sclera: Conjunctivae normal. Pupils: Pupils are equal, round, and reactive to light. Cardiovascular: Rate and Rhythm: Regular rhythm. Heart sounds: Normal heart sounds. Pulmonary: Effort: Pulmonary effort is normal. Breath sounds: Normal breath sounds. Abdominal: Palpations: Abdomen is soft. Tenderness: There is no abdominal tenderness. Musculoskeletal: Cervical back: Normal range of motion. Lymphadenopathy: Cervical: No cervical adenopathy. Skin: Findings: No rash. ASSESSMENT/PLAN: 1. Oropharyngeal candidiasis - ICD9: 112.0, ICD10: B37.0 Complications of the disease were discussed with the patient. Start Mycelex kim discussed side effects of the medication with the patient Encouraged to get plenty of rest, drink lots of clear liquids and use Tylenol or Ibuprofen for fever and comfort. To be seen primary care physician in 3 to 5 days if no improvement, sooner if worsening of symptoms. - CLOTRIMAZOLE 10 MG KIM Candice Rehman MD [facility] NoteHospitalist Discharge Summary Mc Jorge : 1975 Admit date: 08/15/2020 Discharge date: 08/23/2020 Admitting Physician: Colton Pineda MD Primary Care Physician: LYNETTE FIGUEROA, ANGIOGRAPHY TECHNOLOGIST - FINANCIAL PLANNING ASSISTANT Visit Status: Admission Code Status: Full Code Discharge Diagnoses: Active Problems: Ankle syndesmosis disruption, left, initial encounter Closed displaced trimalleolar fracture of left lower leg, initial encounter Patellar tendon rupture, right, initial encounter Resolved Problems: * No resolved hospital problems. * Procedures: Left trimal ORIF and Right patellar tendon repair on 08/18: Hospital Course: Mc is a 45 y.o. male with past medical history -has mentioned below, presented to the emergency room with the above complaints. Patient was walking kind of downhill, [place], felt like his right knee gave away and fell on his lower extremities. Denies hitting his head or loss of consciousness. Denies tingling numbness in the extremities. Was brought into the emergency room, evaluated, found to have left ankle fracture and suspected right patellar tendon rupture. Seen by orthopedic surgery in the emergency room. Admitted to the medical floor. Patient currently complaining of pain in bilateral lower extremities MRI right lower extremity IMPRESSION: 1. ?Suspected low-grade horizontal intrameniscal tear within the medial meniscus mid body to posterior horn, with only capsular surface contact. No definite articular surface contact. 2. ?Horizontal/oblique tear of the lateral meniscus body, extending into the posterior horn, with tibial articular surface contact. 3. ?Full-thickness laceration of the mid patellar tendon resulting in mild elevation of the patella and slight quadriceps tendon laxity. 4. ?Full-thickness tears of the anterior iliotibial band/lateral patellar retinaculum. Additional suspected high-grade partial versus/near full-thickness tear of the vastus lateralis tendon. Extensive subcutaneous tissue free fluid extends along the entire lateral aspect of the knee joint. The remaining quadriceps tendon is intact. CT left lower extremity Impression: Redemonstration of trimalleolar fracture with improved alignment of the hindfoot. Questionable flattening/compression fracture of the talar dome. He was seen by ortho and taken for Left trimal ORIF and Right patellar tendon repair on 08/18. He did well post op and was placed in a R leg immobilizer post op - his pain was well controlled and he was stable at this time [facility] at this time. Consults: Ortho Discharge Instructions: Diet: DIET GENERAL; Activity: as tolerated Recommended Outpatient Tests: Recommended Follow-up: MARIANN URIAS CNP in 1-2 weeks Disposition: Patient discharged in stable condition to Acute Rehab. Greater than 30 minutes spent discharging the patient and coming up with patient discharge plan. Vitals: BP 127/86 Pulse 93 Temp 98.2 ?F (36.8 ?C) (Temporal) Resp 18 Ht 6' 2 (1.88 m) Wt (!) 305 lb (138.3 kg) SpO2 96% BMI 39.16 kg/m? Pulse Ox: SpO2 Av % Min: 96 % Max: 96 % Supplemental O2: O2 Flow Rate (L/min): 4 L/min General appearance: alert and cooperative with exam Lungs: clear to auscultation bilaterally Heart: regular rate and rhythm, S1, S2 normal, no murmur, click, rub or gallop Abdomen: soft, non-tender; bowel sounds normal; no masses, no organomegaly Extremities: extremities normal, atraumatic, no cyanosis or edema Neurologic: No obvious focal neurologic deficits. Discharge Medications: Mc Jorge Home Medication Instructions [place]:[id number] Printed on:08/23/202020 Medication Information aspirin 81 MG tablet Take 81 mg by mouth daily atorvastatin (LIPITOR) 10 MG tablet Take 10 mg by mouth daily cetirizine (ZYRTEC) 10 MG tablet Take 10 mg by mouth daily Cholecalciferol (VITAMIN D3) 5000 UNITS TABS Take by mouth clomiPHENE (CLOMID) 50 MG tablet Take 25 mg by mouth daily Coenzyme Q10 (CO Q 10) 100 MG CAPS Take 400 mg by mouth daily Cyanocobalamin (VITAMIN B 12 PO) Take by mouth DHEA 50 MG TABS Take by mouth enoxaparin (LOVENOX) 40 MG/0.4ML injection Inject 0.4 mLs into the skin daily for 14 days Folic Acid 0.8 MG CAPS Take by mouth daily ibuprofen (ADVIL;MOTRIN) 200 MG tablet Take 1 tablet by mouth every 6 hours as needed for Pain oxyCODONE (ROXICODONE) 5 MG immediate release tablet Take 1 tablet by mouth every 4 hours as needed for Pain for up to 3 days. pantoprazole (PROTONIX) 40 MG tablet Take 40 mg by mouth daily Complexity of Follow up: [] Moderate Complexity: follow up within 7-14 calendar days (07729) [] Severe Complexity: follow up within 7 calendar days (66446) Follow up Testing, Pending results or Referrals at Transitional Care Visit: [] yes [] no Instructions to MA: Please call patient on day after discharge (must document patient contacted within 2 busin (more content not included)...[facility] Diagnosis Oropharyngeal candidiasis- Primary Candidiasis of mouth documented in this encounter [facility] note* Diagnosis Acute non-recurrent pansinusitis- Primary documented in this [facility] noteNo assessment information availableMercy Hospital Work Phone: Reason for referral (narrative)No reason for referral information availableMercy Hospital Work Phone: Instructions Instruction Description Start Date CompletedPatient advised to follow-up with Primary Care Physician for BMI management. 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 Family History Relationship Condition Age at Onset Recorded Date/T cam Not Specified Diabetes mellitus Unknown High blood cholesterol Unknown Alcoholism Unknown Anxiety Unknown Arthritis Unknown Heart disease Unknown Hypertension Unknown Summary Purpose Discharge Instructions * Discharge Instr - ALFREDO* Pau Collier RN - 08/20/2020 10:55 AM EST Continuity of Care Form Patient Name: Mc Jorge : 1975 Admit date: 08/15/2020 Discharge date: 08/23/2020 Code Status Order: Full Code Advance Directives: Advance Care Flowsheet Documentation Date/Time Healthcare Directive Type of Healthcare Directive Copy in Chart Healthcare Agent Appointed Healthcare Agent's Name Healthcare Agent's Phone Number 08/16/20 [phone] No, patient does not have an advance directive for healthcare treatment -- -- -- -- -- Admitting Physician: Colton Pineda MD PCP: LYNETTE FIGUEROA APRN - FINANCIAL PLANNING ASSISTANT Discharging Nurse: Pau Discharging Hospital Unit/Room#: [id number] Discharging Unit Emergency Contact: Extended Emergency Contact Information Primary Emergency Contact: Trish Jorge [address]: [address] [place] [address] Relation: Spouse Past Surgical History: Past Surgical History: Procedure Laterality Date ANKLE SURGERY Left 08/18/2020 DR SMITH- ORIF LEFT ANKLE CARDIAC CATHETERIZATION 2001 PARATHYROIDECTOMY PATELLAR TENDON REPAIR Right 08/18/2020 DR SMITH- REPAIR RIGHT PATELLA TENDON THYROIDECTOMY, PARTIAL Immunization History: There is no immunization history on file for this patient. Active Problems: Patient Active Problem List Diagnosis Code Myocarditis (HCC) I51.4 Hypertension I10 Ankle syndesmosis disruption, left, initial encounter S93.432A Closed fracture dislocation of left ankle joint S82.892A Patellar tendon rupture, right, initial encounter S86.811A Isolation/Infection: Isolation No Isolation Patient Infection Status None to display Nurse Assessment: Last Vital Signs: BP 124/80 Pulse 89 Temp 98 F (36.7 C) (Temporal) Resp 18 Ht 6' 2 (1.88 m) Wt (!) 305 lb (138.3 kg) SpO2 95% BMI 39.16 kg/m Last documented pain score (0-10 scale): Pain Level: 3 Last Weight: Wt Readings from Last 1 Encounters: 08/15/20 (!) 305 lb (138.3 kg) Mental Status: oriented and alert IV Access: - None Nursing Mobility/ADLs: Walking Assisted Transfer Assisted Bathing Assisted Dressing Assisted Toileting Assisted Feeding Assisted Supervisor Braiding Assisted Med Delivery whole Wound Care Documentation and Therapy: Elimination: Continence: Bowel: Yes Bladder: Yes Urinary Catheter: None Colostomy/Ileostomy/Ileal Conduit: No Date of Last BM: 08/23/2020 No intake or output data in the 24 hours ending 08/20/20 1052 No intake/output data recorded. Safety Concerns: History of Falls (last 30 days) and At Risk for Falls Impairments/Disabilities: None Nutrition Therapy: Current Nutrition Therapy: - Oral Diet: General Routes of Feeding: Oral Liquids: Thin Liquids Daily Fluid Restriction: no Last Modified Barium Swallow with Video (Video Swallowing Test): not done Treatments at the Time of Hospital Discharge: Respiratory Treatments: Oxygen Therapy: is not on home oxygen therapy. Ventilator: - No ventilator support Rehab Therapies: Physical Therapy and Occupational Therapy Weight Bearing Status/Restrictions: Non-weight bearing on {Right/Left:16} leg Other Medical Equipment (for information only, NOT a DME order): {EQUIPMENT:[id number]} Other Treatments: Patient's personal belongings (please select all that are sent with patient): {[facility] DME Belongings:[id number]} RN SIGNATURE: {Esignature:[id number]} CASE MANAGEMENT/SOCIAL WORK SECTION Inpatient Status Date: 08/16/20 Readmission Risk Assessment Score: Readmission Risk Risk of Unplanned Readmission: 12 Discharging to Facility/ Agency Name:[facility] Address:[address] [place] [address] Dialysis Facility (if applicable) Name: Address: Dialysis Schedule: Phone: Fax: Nutrition Program Instructor/Scrum Master signature: {Esignature:[id number]} ICIAN SECTION Prognosis: Good Condition at Discharge: Stable Rehab Potential (if transferring to Rehab): Good Recommended Labs or Other Treatments After Discharge: none Physician Certification: I certify the above information and transfer of Mc Jorge is necessaryfor the continuing treatment of the diagnosis listed and that he requires [facility] Facility for less 30 days. Update Admission H&P: No change in H&P PHYSICIAN SIGNATURE: * Additional Instructions* Jas Worthy PA-C - 08/18/2020 General Orthopedic Discharge Instructions The following instructions have been prepared to help you when you leave the hospital. These guidelines are for the post-surgery period. Activity: Ease into normal activity as tolerated. Medications: see medication instructions. Please be sure to read and understand the information provided by your pharmacy. Ask your Pharmacist if any questions. Wound Care and Hygiene: -Wash hands before touching or changing dressings -Do Not touch incision -Leave dressing until post-op day 2 and reapply dressing if wound is draining. If wound is dry, youmay leave dressing off -May shower starting post-op day 3 Call Your Doctor for: -Excessive bleeding/swelling of incision -Fever with temperature above 100 F Anesthesia Precautions: -Do Not operate any vehicle (automobile, bicycle, motorcycle) or power tools for 24 hours -Do Not drink alcoholic beverages for 24 hours -As precaution to prevent post-operative nausea and vomiting, start your diet with liquids, then progress to light foods. If tolerated, resume normal diet. Additional Instructions: -Weight bearing status: Non weightbearing with left leg. Ok for weightbearing as tolerated with right leg in knee immobilizer. -Ok for left knee range of motion -Wear your knee immobilizer when out of bed. It can be off when laying in bed with the leg straight. Avoid right knee range of motion. Ok for right ankle range of motion. -Keep splint clean, dry, and intact until follow up -Your nerve block should wear off in 1-2 days -Ice/elevate extremity -Continue PT -Blood clot prevention: take as prescribed by primary team. -Pain control: Take as prescribed by primary team. Alternate Tylenol and Ibuprofen every 4 hours. For example, take Tylenol at 7am and Ibuprofen at 11am. Then take Tylenol at 3pm and Ibuprofen at 7pm. Take narcotic medication for breakthrough pain only. Do not take more than 3,000mg of Tylenol per day. Contact your surgeon's office (Dr. Smith), to set up an appointment in 2 weeks, or if you have anyproblems or questions. documented in this encounter History of Present Illness * Pau Collier RN - 08/23/2020 7:00 PM EST RN gave report to [facility]. All belongings reutnred to patient. Waiting on transportation for discharge * Tim Arrington MD - 08/23/2020 6:48 PM EST Images from the original note were not included. Hospitalist Progress Note 08/23/2020 6:48 PM [id number]: Please page me for patient care issues. [phone]: Please page [facility] Hospitalist for any issues. Subjective: Admit Date: 08/15/2020 PCP: MARIANN URIAS FINANCIAL PLANNING ASSISTANT Room#: [id number] Interval History: Patient seen and examined, I was wearing N95 mask throughout the patient encounter No new event overnight Large BM yesterday - pain well controlled overall DIET GENERAL; No data found. Medications: enoxaparin 40 mg Subcutaneous Daily acetaminophen 1,000 mg Oral TID aspirin 81 mg Oral Daily atorvastatin 10 mg Oral Nightly cetirizine 10 mg Oral Daily sodium chloride flush 10 mL Intravenous 2 times per day clomiPHENE 25 mg Oral Daily pantoprazole 40 mg Oral QAM AC LABS: CBC: No results for input(s): WBC, RBC, HGB, HCT, MCV, RDW, PLT in the last 72 hours. BMP: No results for input(s): NA, K, CL, CO2, BUN, CREATININE, GLUCOSE, CALCIUM, ANIONGAP in the last 72hours. LIVER PROFILE:No results for input(s): AST, ALT, BILITOT, ALKPHOS, LABALBU, PROT in the last 72 hours. PT/INR: No results for input(s): PROTIME, INR in the last 72 hours. CARDIAC ENZYMES: No results for input(s): TROPONINI in the last 72 hours. Procalcitonin: No results found for: PROCAL Objective: Vitals: BP 127/86 Pulse 93 Temp 98.2 F (36.8 C) (Temporal) Resp 18 Ht 6' 2 (1.88 m) Wt (!) 305 lb (138.3 kg) SpO2 96% BMI 39.16 kg/m Pulse Ox: SpO2 Av % Min: 96 % Max: 96 % Supplemental O2: O2 Flow Rate (L/min): 4 L/min General appearance: No apparent distress, HEENT: Eyes: No scleral icterus No pallor Oral: Tongue is semi-moist Cardiovascular: S1S2 heard, RRR Respiratory: Clear to auscultation bilaterally Abdomen: Soft, non-tender, non-distended with normal bowel sounds. Musculoskeletal: No obvious deformities seen Skin: No visible rashes or lesions. Neurology- no focal neurology,Awake alert Extremity- no peripheral edema both lower extremities bilateral lower extremity dressing is seen Assessment Left ankle fracture right knee meniscal injury with patellar tendon rupture mechanical fall obstructive sleep apnea remote history of myocarditis gastroesophageal reflux disease Constipation-resolved Plan Orthopedic surgery consult following status Post Open reduction internal fixation of left trimalleolar ankle fracture without fixation of posterior lip ,Open reduction and internal fixation left syndesmosis disruption,Primary repair right patellar tendon rupture pain control continue MiraLAX PTOT evaluation recommended inpatient rehabilitation continue CPAP Lovenox for deep vein thrombosis prophylaxis Labs ordered for AM Patient was informed about all work up and treatment plan Discussed with nursing staff Advance Directive: Full Code Discharge planning: ready for [facility] once approved Tim Arrington MD Division of Hospitalist Medicine Inpatient Medical Services PAGER: [phone] * Sheeba Morgan OTA - 08/23/2020 2:20 PM EST Occupational Therapy Facility/Department: [facility] Daily Treatment Note Discharge Recommendations: IP Rehab Assessment Assessment: Pleasant and cooperative. Continues to have difficulty with sit --> stand. Discussedpotential of possibly being wheelchair level at homegoing (after rehab) as pt's height and knee immobilizer make it very difficult to achieve standing. Suggest rehab level therapies at discharge. REQUIRES OT FOLLOW UP: Yes Safety Devices Type of devices: Call light within reach(left seated EOB, present) This provider wore N95 and eye protection for duration of session. Restrictions Right Lower Extremity Weight Bearing: Weight Bearing As Tolerated Left Lower Extremity Weight Bearing: Non Weight Bearing Right Lower Extremity Brace: Knee Immobilizer Left Lower Extremity Brace: (splint) Other position/activity restrictions: activity as tolerated; ok for right ankle ROM; no ROM right knee Subjective Subjective: Pt in bed, present. Agrees to OT. Vital Signs Patient Currently in Pain: No Objective ADL Grooming: Supervision(while seated EOB, RLE propped on chair) LE Dressing: Dependent/Total(don R sock, attempt R shoe but unable to seat fully on foot; adjust knee immobilizer) Balance Sitting Balance: Independent Standing Balance Comment: unable to achieve full stance Bed mobility Supine to Sit: Minimal assistance(assist with RLE when transitioning to L side of bed) Sit to Supine: Minimal assistance(for LEs) Scooting: Stand by assistance(to EOB as well as lateral scoot while seated and to HOB (using headboard)) Transfers Sit to stand: Maximum assistance;2 Person assistance(unable to come to full stand, even with bed significantly elevated. Attempted both push from bed and hands on walker with no significant change inperformance.) Stand to sit: Maximum assistance;2 Person assistance Plan Plan Comment: Cont OT per POC Goals Short term goal 1: BSC transfer with slideboard PRN mod assist. --not addressed Short term goal 2: Toileting min assist with compensatory strategies. --not addressed Short term goal 3: LB dressing with AE PRN and compensatory strategies min assist --progressing Short term goal 4: BUE strength 4+/5. --progressing Therapy Time Individual Concurrent Group Co-treatment Time In 1357 Time Out 1420 Minutes 23 Timed Code Treatment Minutes: 23 Minutes(Funct--2) PAULA Zhang * Carolina Ham, PET CREMATORY WORKER - 08/23/2020 2:20 PM EST Physical Therapy Facility/Department: [facility] Daily Treatment Note NAME: Mc Jorge : 1975 Date of Service: 08/23/2020 Discharge Recommendations: IP Rehab PT Equipment Recommendations Other: w/c, drop arm BSC, slideboard, hospital bed, FWW, ramp Assessment Body structures, Functions, Activity limitations: Decreased functional mobility ;Decreased high-level IADLs;Decreased ADL status;Decreased strength;Decreased balance;Decreased safe awareness;Increased pain;Decreased ROM;Decreased sensation Assessment: Pt present with the above deficits requiring CGA for bed mobility and max assist x 2 for transfer. Pt unable to complete full stance, cleared bed about 25% with bed elevated. Rest breaks needed. Rec rehab upon discharge. REQUIRES PT FOLLOW UP: Yes Activity Tolerance Activity Tolerance: Patient limited by fatigue;Patient limited by pain Patient Diagnosis(es): The primary encounter diagnosis was Closed fracture dislocation of left ankle, initial encounter. A diagnosis of Patellar tendon rupture, right, initial encounter was also pertinent to this visit. has a past medical history of GERD (gastroesophageal reflux disease), HLD (hyperlipidemia), Hyperparathyroidism (HCC), Hypertension, Hypogonadism in male, Myocarditis (HCC), Obesity, NEMESIO on CPAP, andSpasm. has a past surgical history that includes Cardiac catheterization (2013, 2001); Thyroidectomy, partial; parathyroidectomy; Ankle surgery (Left, 08/18/2020); and Patellar tendon repair (Right, 08/18/2020). Restrictions Restrictions/Precautions Restrictions/Precautions: Weight Bearing, Fall Risk, ROM Restrictions Required Braces or Orthoses?: Yes Lower Extremity Weight Bearing Restrictions Right Lower Extremity Weight Bearing: Weight Bearing As Tolerated Left Lower Extremity Weight Bearing: Non Weight Bearing Required Braces or Orthoses Right Lower Extremity Brace: Knee Immobilizer Left Lower Extremity Brace: (splint) Position Activity Restriction Other position/activity restrictions: activity as tolerated; ok for right ankle ROM; no ROM right knee Subjective General Chart Reviewed: Yes Additional Pertinent Hx: Admitted s/p fall from standing height. Pt reportedly slipped in rossy resulting in left bimalleolar fx with right patellar tendon rupture. Underwent ORIF of left ankle with right patellar tendon repair on 08/18. Family / Caregiver Present: Yes() Subjective Subjective: Pt in bed, HOB elevated and agreeable to PT. General Comment Comments: *this PET CREMATORY WORKER wore N95, gloves and goggles throughout pt encounter. Pain Screening Patient Currently in Pain: Denies Objective Bed mobility Supine to Sit: Contact guard assistance Sit to Supine: Contact guard assistance Scooting: Stand by assistance Comment: HBO slightly elevated, bed rails used. Transfers Sit to Stand: Maximum Assistance;2 Person Assistance Stand to sit: Maximum Assistance;2 Person Assistance Comment: x3 attempts from elevated bed, pt able to clear bed about 25%. Balance Comments: sitting at EOB, pt supervision. AM-PAC Score Goals Short term goals Time Frame for Short term goals: 2 weeks Short term goal 1: Bed mobility supervision x1 ;progressing Short term goal 2: Transfers min assist x2;progressing for lateral transfer, not met Short term goal 3: Ambulate 10' feet with FWW or axillary crutches with min assist x1;not addressed Short term goal 4: Slide board transfer with BUE/RLE with supervision x1; not addressed Short term goal 5: Propel wheelchair 150 feet x1 with BUE with supervision x1 ; not addressed Patient Goals Patient goals : to get better Plan Plan Times per week: 5-7 Plan weeks: 2 weeks Current Treatment Recommendations: Strengthening, Transfer Training, Endurance Training, Neuromuscular Re-education, Patient/Caregiver Education & Training, Equipment Evaluation, Education, &procurement, Home Exercise Program, Safety Education & Training, Positioning, Functional Mobility Training, Balance Training, Gait Training, Wheelchair Mobility Training, ROM Plan Comment: Slide board if necessary Safety Devices Type of devices: All fall risk precautions in place, Left in bed, Call light within reach, Gait belt Restraints Initially in place: No Therapy Time Individual Concurrent Group Co-treatment Time In 1402 Time Out 1420 Minutes 18 Timed Code Treatment Minutes: 18 Minutes(fa) Carolina Ham, PET CREMATORY WORKER * Jas Worthy PA-C - 08/23/2020 1:08 PM EST Spoke to patient regarding the post operative plan. Discharge instructions and follow up were explained. We discussed the natural course of injury and expectations moving forward. Patient voiced their understanding and is agreeable with the current plan. All questions were answered. Patient was advised to contact our office with any questions or concerns. Jas Worthy PA-C Orthopedic Surgery * Tabitha Blevins, PET CREMATORY WORKER - 08/22/2020 2:04 PM EST Physical Therapy Facility/Department: [facility] Daily Treatment Note NAME: Mc Jorge : 1975 Date of Service: 08/22/2020 Discharge Recommendations: IP Rehab PT Equipment Recommendations Equipment Needed: Yes(TBD but will likely need w/c, slideboard, hospital bed, FWW, drop arm bed side commode and ramp to get into house) Assessment Body structures, Functions, Activity limitations: Decreased functional mobility ;Decreased high-level IADLs;Decreased ADL status;Decreased strength;Decreased balance;Decreased safe awareness;Increased pain;Decreased ROM;Decreased sensation Assessment: Pt making good progress with slide board transfer. Educated more about workings of wheelchair such as brakes, armrests, and leg rests. Pt gets hot easily and needs to take breaks. Recommend rehab at discharge. Prognosis: Fair;Good Decision Making: High Complexity REQUIRES PT FOLLOW UP: Yes Activity Tolerance Activity Tolerance: Patient Tolerated treatment well;Patient limited by fatigue Patient Diagnosis(es): The primary encounter diagnosis was Closed fracture dislocation of left ankle, initial encounter. A diagnosis of Patellar tendon rupture, right, initial encounter was also pertinent to this visit. has a past medical history of GERD (gastroesophageal reflux disease), HLD (hyperlipidemia), Hyperparathyroidism (HCC), Hypertension, Hypogonadism in male, Myocarditis (HCC), Obesity, NEMESIO on CPAP, andSpasm. has a past surgical history that includes Cardiac catheterization (2013, 2001); Thyroidectomy, partial; parathyroidectomy; Ankle surgery (Left, 08/18/2020); and Patellar tendon repair (Right, 08/18/2020). Restrictions Restrictions/Precautions Restrictions/Precautions: Weight Bearing, Fall Risk, ROM Restrictions Required Braces or Orthoses?: Yes Lower Extremity Weight Bearing Restrictions Right Lower Extremity Weight Bearing: Weight Bearing As Tolerated Left Lower Extremity Weight Bearing: Non Weight Bearing Required Braces or Orthoses Right Lower Extremity Brace: Knee Immobilizer Left Lower Extremity Brace: (splint) Position Activity Restriction Other position/activity restrictions: activity as tolerated; ok for right ankle ROM; no ROM right knee Subjective General Chart Reviewed: Yes Additional Pertinent Hx: Admitted s/p fall from standing height. Pt reportedly slipped in rossy resulting in left bimalleolar fx with right patellar tendon rupture. Underwent ORIF of left ankle with right patellar tendon repair on 08/18. Family / Caregiver Present: Yes(, Geovanna) Subjective Subjective: Pt supine in bed. Pleasant, motivated and agreeable to PT. Pain Screening Patient Currently in Pain: Yes Pain Assessment Pain Assessment: 0-10 Pain Level: 2(after activity) Pain Location: Leg;Knee Vital Signs Patient Currently in Pain: Yes Orientation Orientation Overall Orientation Status: Within Functional Limits Cognition Cognition Overall Cognitive Status: WFL Objective Bed mobility Supine to Sit: Minimal assistance Sit to Supine: Minimal assistance Scooting: Minimal assistance Comment: mostly needed help with RLE, pt can manage LLE very well but did need cues to not push with it to scoot over in bed. Transfers Lateral Transfers: Minimal Assistance Comment: bed to wheelchair, and wheelchair to bed. Two blankets placed in wheelchair to make surfaces even. Pt did need mod assist to place slideboard and several cues for wheelchair mechanics like brakes, removable armrests, and removable leg rests. Wheelchair Activities Wheelchair Size: std Wheelchair Type: Standard Wheelchair Cushion: None Wheelchair Parts Management: Yes Left Armrest Level of Assistance: Maximum assistance Right Armrest Level of Assistance: Maximum assistance Left Leg Rest Level of Assistance: Maximum assistance Right Leg Rest Level of Assistance: Maximum assistance Left Brakes Level of Assistance: Minimal assistance Right Brakes Level of Assistance: Minimal assistance Propulsion: Yes Propulsion 1 Propulsion: Manual Level: Level Tile Method: RUE;LUE Level of Assistance: Minimal assistance Description/ Details: worked on forward, backwards and turning of wheelchair. Pt able to manuever through wide doorway and around obstacles in rand. Distance: 50 ft x 2 one rest break between distances Balance Comments: Knee immobilizer tightend prior to mobility with mod assist. Pt able to manage top few straps but now lower straps. Pt sat EOB with supervision. Dependent to don sock and attempted to don shoe on RLE but unable to get foot into shoe. Exercises Heelslides: LLE AROM x 10 Gluteal Sets: supine x 10 Hip Abduction: supine, LLE x 10 reps, AROM. RLE with assist x 10 reps Ankle Pumps: RLE AROM, LLE toe wiggle Goals Short term goals Time Frame for Short term goals: 2 weeks Short term goal 1: Bed mobility supervision x1 ;progressing Short term goal 2: Transfers min assist x2;progressing for lateral transfer, did not attempt standing. Short term goal 3: Ambulate 10' feet with FWW or axillary crutches with min assist x1;not addressed Short term goal 4: Slide board transfer with BUE/RLE with supervision x1;progressing Short term goal 5: Propel wheelchair 150 feet x1 with BUE with supervision x1 ; progressing Patient Goals Patient goals : to get better Plan Plan Times per week: 5-7 Plan weeks: 2 weeks Current Treatment Recommendations: Strengthening, Transfer Training, Endurance Training, Neuromuscular Re-education, Patient/Caregiver Education & Training, Equipment Evaluation, Education, &procurement, Home Exercise Program, Safety Education & Training, Positioning, Functional Mobility Training, Balance Training, Gait Training, Wheelchair Mobility Training, ROM Plan Comment: Slide board if necessary Safety Devices Type of devices: All fall risk precautions in place, Left in bed, Call light within reach Restraints Initially in place: No Therapy Time Individual Concurrent Group Co-treatment Time In 1250 Time Out 1341 Minutes 51 Timed Code Treatment Minutes: 41 Minutes(FA x2, TP) Variance: 10(equipment procurement) *This PET CREMATORY WORKER wore N95, gloves and safety glasses during whole treatment session.* Tabitha Blevins PET CREMATORY WORKER * Mady Carter DTR - 08/22/2020 11:07 AM EST Nutrition update completed. Chart reviewed. Patient to be monitored and followed by the diet cephalometric technician. * Nate Mcfarland MD - 08/22/2020 9:54 AM EST Images from the original note were not included. Hospitalist Progress Note 08/22/2020 9:54 AM [phone]: Please page me for patient care issues. [phone]: Please page [facility] night Hospitalist for any issues. Subjective: Admit Date: 08/15/2020 PCP: MARIANN URIAS CNP Room#: [id number] Interval History: Patient seen and examined, I was wearing N95 mask throughout the patient encounter No new event overnight patient denies shortness of breath or chest pain. Passing flatus pain control. Positive bowel movements DIET GENERAL; No data found. Medications: enoxaparin 40 mg Subcutaneous Daily acetaminophen 1,000 mg Oral TID aspirin 81 mg Oral Daily atorvastatin 10 mg Oral Nightly cetirizine 10 mg Oral Daily sodium chloride flush 10 mL Intravenous 2 times per day clomiPHENE 25 mg Oral Daily pantoprazole 40 mg Oral QAM AC LABS: CBC: Recent Labs 08/20/20222 WBC 9.1 RBC 4.26* HGB 13.6 HCT 40.6 MCV 95.3 RDW 13.1 PLT 199 BMP: Recent Labs 08/20/20222 NA 136 K 4.1 CL 100 CO2 27 BUN 21* CREATININE 0.84 GLUCOSE 111* CALCIUM 8.2* ANIONGAP 8 LIVER PROFILE:No results for input(s): AST, ALT, BILITOT, ALKPHOS, LABALBU, PROT in the last 72 hours. PT/INR: No results for input(s): PROTIME, INR in the last 72 hours. CARDIAC ENZYMES: No results for input(s): TROPONINI in the last 72 hours. Procalcitonin: No results found for: PROCAL Objective: Vitals: BP 128/82 Pulse 80 Temp 97.9 F (36.6 C) (Temporal) Resp 16 Ht 6' 2 (1.88 m) Wt (!) 305 lb (138.3 kg) SpO2 94% BMI 39.16 kg/m Pulse Ox: SpO2 Av % Min: 94 % Max: 96 % Supplemental O2: O2 Flow Rate (L/min): 4 L/min General appearance: No apparent distress, HEENT: Eyes: No scleral icterus No pallor Oral: Tongue is semi-moist Cardiovascular: S1S2 heard, RRR Respiratory: Clear to auscultation bilaterally Abdomen: Soft, non-tender, non-distended with normal bowel sounds. Musculoskeletal: No obvious deformities seen Skin: No visible rashes or lesions. Neurology- no focal neurology,Awake alert Extremity- no peripheral edema both lower extremities bilateral lower extremity dressing is seen Assessment Left ankle fracture right knee meniscal injury with patellar tendon rupture mechanical fall obstructive sleep apnea remote history of myocarditis gastroesophageal reflux disease Constipation-resolved Plan Orthopedic surgery consult following status Post Open reduction internal fixation of left trimalleolar ankle fracture without fixation of posterior lip ,Open reduction and internal fixation left syndesmosis disruption,Primary repair right patellar tendon rupture pain control continue MiraLAX PTOT evaluation recommended inpatient rehabilitation continue CPAP Lovenox for deep vein thrombosis prophylaxis Labs ordered for AM Patient was informed about all work up and treatment plan Discussed with nursing staff Advance Directive: Full Code Discharge planning: Inpatient rehabilitation NATE MCFARLAND MD Division of Hospitalist Medicine Inpatient Medical Services PAGER: [phone] * Nate Mcfarland MD - 08/21/2020 9:35 AM EST Images from the original note were not included. Hospitalist Progress Note 08/21/2020 9:35 AM [phone]: Please page me for patient care issues. [phone]: Please page [facility] night Hospitalist for any issues. Subjective: Admit Date: 08/15/2020 PCP: MARIANN URIAS CNP Room#: [id number] Interval History: Patient seen and examined, I was wearing N95 mask throughout the patient encounter No new event overnight patient denies shortness of breath or chest pain. Passing flatus pain control. No bowel movements DIET GENERAL; No data found. Medications: enoxaparin 40 mg Subcutaneous Daily acetaminophen 1,000 mg Oral TID aspirin 81 mg Oral Daily atorvastatin 10 mg Oral Nightly cetirizine 10 mg Oral Daily sodium chloride flush 10 mL Intravenous 2 times per day clomiPHENE 25 mg Oral Daily pantoprazole 40 mg Oral QAM AC LABS: CBC: Recent Labs 08/20/20222 WBC 9.1 RBC 4.26* HGB 13.6 HCT 40.6 MCV 95.3 RDW 13.1 PLT 199 BMP: Recent Labs 08/20/20222 NA 136 K 4.1 CL 100 CO2 27 BUN 21* CREATININE 0.84 GLUCOSE 111* CALCIUM 8.2* ANIONGAP 8 LIVER PROFILE:No results for input(s): AST, ALT, BILITOT, ALKPHOS, LABALBU, PROT in the last 72 hours. PT/INR: No results for input(s): PROTIME, INR in the last 72 hours. CARDIAC ENZYMES: No results for input(s): TROPONINI in the last 72 hours. Procalcitonin: No results found for: PROCAL Objective: Vitals: BP 126/85 Pulse 93 Temp 97.7 F (36.5 C) (Temporal) Resp 16 Ht 6' 2 (1.88 m) Wt (!) 305 lb (138.3 kg) SpO2 97% BMI 39.16 kg/m Pulse Ox: SpO2 Av % Min: 97 % Max: 97 % Supplemental O2: O2 Flow Rate (L/min): 4 L/min General appearance: No apparent distress, HEENT: Eyes: No scleral icterus No pallor Oral: Tongue is semi-moist Cardiovascular: S1S2 heard, RRR Respiratory: Clear to auscultation bilaterally Abdomen: Soft, non-tender, non-distended with normal bowel sounds. Musculoskeletal: No obvious deformities seen Skin: No visible rashes or lesions. Neurology- no focal neurology,Awake alert Extremity- no peripheral edema both lower extremities bilateral lower extremity dressing is seen Assessment Left ankle fracture right knee meniscal injury with patellar tendon rupture mechanical fall obstructive sleep apnea remote history of myocarditis gastroesophageal reflux disease constipation Plan Orthopedic surgery consult following status Post Open reduction internal fixation of left trimalleolar ankle fracture without fixation of posterior lip ,Open reduction and internal fixation left syndesmosis disruption,Primary repair right patellar tendon rupture pain control continue MiraLAX PTOT evaluation recommended inpatient rehabilitation continue CPAP Lovenox for deep vein thrombosis prophylaxis Labs ordered for AM Patient was informed about all work up and treatment plan Discussed with nursing staff Advance Directive: Full Code Discharge planning: Inpatient rehabilitation NATE MCFARLAND MD Division of Hospitalist Medicine Inpatient Medical Services PAGER: [phone] * Jody Negro, PET CREMATORY WORKER - 08/20/2020 1:18 PM EST Physical Therapy Facility/Department: [facility] Daily Treatment Note NAME: Mc Jorge : 1975 Date of Service: 08/20/2020 Discharge Recommendations: IP Rehab Assessment Body structures, Functions, Activity limitations: Decreased functional mobility ;Decreased high-level IADLs;Decreased ADL status;Decreased strength;Decreased balance;Decreased safe awareness;Increased pain;Decreased ROM;Decreased sensation Assessment: good effort but unable to achieve full stance after multiple attempts. did well with slide board today. rec isela back to bed due to surface height from chair too low. rec focus slide board and wheelchair mobility. rec rehab Prognosis: Fair;Good REQUIRES PT FOLLOW UP: Yes Activity Tolerance Activity Tolerance: Patient limited by pain;Patient limited by endurance Patient Diagnosis(es): The primary encounter diagnosis was Closed fracture dislocation of left ankle, initial encounter. A diagnosis of Patellar tendon rupture, right, initial encounter was also pertinent to this visit. has a past medical history of GERD (gastroesophageal reflux disease), HLD (hyperlipidemia), Hyperparathyroidism (HCC), Hypertension, Hypogonadism in male, Myocarditis (HCC), Obesity, NEMESIO on CPAP, andSpasm. has a past surgical history that includes Cardiac catheterization (2013, 2001); Thyroidectomy, partial; parathyroidectomy; Ankle surgery (Left, 08/18/2020); and Patellar tendon repair (Right, 08/18/2020). Restrictions Restrictions/Precautions Restrictions/Precautions: Weight Bearing, Fall Risk, ROM Restrictions Required Braces or Orthoses?: Yes Lower Extremity Weight Bearing Restrictions Right Lower Extremity Weight Bearing: Weight Bearing As Tolerated Left Lower Extremity Weight Bearing: Non Weight Bearing Required Braces or Orthoses Right Lower Extremity Brace: Knee Immobilizer Left Lower Extremity Brace: (splint) Position Activity Restriction Other position/activity restrictions: activity as tolerated; ok for right ankle ROM; no ROM right knee Subjective General Chart Reviewed: Yes Additional Pertinent Hx: Admitted s/p fall from standing height. Pt reportedly slipped in rossy resulting in left bimalleolar fx with right patellar tendon rupture. Underwent ORIF of left ankle with right patellar tendon repair on 08/18. Family / Caregiver Present: No Subjective Subjective: Pt agreeable for therapy. Pt pleasant and cooperative. states he is weak UE's, sedentary per patient. Pain Screening Patient Currently in Pain: Yes Pain Assessment Pain Level: 2 Pain Type: Acute pain Pain Location: Knee Pain Orientation: Right Vital Signs Patient Currently in Pain: Yes Orientation Orientation Overall Orientation Status: Within Functional Limits Cognition Cognition Overall Cognitive Status: WFL Objective Bed mobility Supine to Sit: Minimal assistance(RLE assist mostly) Scooting: Minimal assistance;Moderate assistance(assist to shift, advance hips back/forward/side) Comment: supine>sit strong core to long sit, BUE use and LLE ability to get to EOB. assist for RLE knee immobilizer and position rested on ground Transfers Sit to Stand: Maximum Assistance;2 Person Assistance Lateral Transfers: Minimal Assistance;Moderate Assistance(slide board bed>bedside chair; mod to place board, min for transfer, supervision for board removal) Comment: several attempts, various technique tried with no full stance achieved. poor ability to elevate buttocks, maintain LLE NWB and position RLE under neath himself. Balance Comments: seated good midline, difficult lateral shift due to knee immobilizer Exercises Straight Leg Raise: LLE AROM, RLE AAROM Quad Sets: LLE Heelslides: LLE AROM Gluteal Sets: . Ankle Pumps: RLE AROM, LLE toe wiggle AM-PAC Score [facility] Inpatient Mobility Raw Score : 7 (08/20/201317) [facility] Inpatient T-Scale Score : 26.42 (08/20/201317) Mobility Inpatient CMS 0-100% Score: 92.36 (08/20/201317) Mobility Inpatient [facility] G-Code Modifier : CM (08/20/201317) Goals Short term goals Time Frame for Short term goals: 2 weeks Short term goal 1: Bed mobility supervision x1 ;progressing Short term goal 2: Transfers min assist x2;progressing Short term goal 3: Ambulate 10' feet with FWW or axillary crutches with min assist x1;not addressed Short term goal 4: Slide board transfer with BUE/RLE with supervision x1;progressing Short term goal 5: Propel wheelchair 150 feet x1 with BUE with supervision x1 ;not addressed Patient Goals Patient goals : to get better Plan Plan Times per week: 5-7 Plan weeks: 2 weeks Current Treatment Recommendations: Strengthening, Transfer Training, Endurance Training, Neuromuscular Re-education, Patient/Caregiver Education & Training, Equipment Evaluation, Education, &procurement, Home Exercise Program, Safety Education & Training, Positioning, Functional Mobility Training, Balance Training, Gait Training, Wheelchair Mobility Training, ROM Plan Comment: Slide board if necessary Safety Devices Type of devices: All fall risk precautions in place, Call light within reach, Gait belt, Left in chair, Nurse notified(isela pad while in chair) Restraints Initially in place: (no alarms engaged upon entry to room) Therapy Time Individual Concurrent Group Co-treatment Time In 1054 Time Out 1120 Minutes 26 Timed Code Treatment Minutes: (FAx2) *N95, eye protection, worn by me during patient encounter* Jody Negro PTA * Sheeba Morgan [place] ATTORNEY - 08/20/2020 11:14 AM EST Occupational Therapy Facility/Department: [facility] Daily Treatment Note Discharge Recommendations: IP Rehab Assessment Safety Devices Type of devices: Left in chair;Call light within reach(isela pad in chair) This provider wore N95 and eye protection for duration of session. Restrictions Right Lower Extremity Weight Bearing: Weight Bearing As Tolerated(with knee immobilizer. NO knee ROM) Left Lower Extremity Weight Bearing: Non Weight Bearing(ok with LEFT knee ROM) Required Braces or Orthoses Right Lower Extremity Brace: Knee Immobilizer Left Lower Extremity Brace: (splint) Position Activity Restriction Other position/activity restrictions: activity as tolerated; ok for right ankle ROM Subjective Subjective: Pt in bed, agrees to therapy. Admits to slight apprehension but willing to work. Pre Treatment Pain Screening Comments / Details: 08/25 R knee, end of session. L ankle 07/28 Vital Signs Patient Currently in Pain: Yes Objective ADL LE Dressing: Dependent/Total(don right sock, bed level) Balance Sitting Balance: Supervision Standing Balance Comment: unable to achieve full stance Bed mobility Supine to Sit: Minimal assistance(for RLE) Scooting: Supervision(forward/back at EOB with assist for management of RLE, lateral scoot with supv) Comment: supine to long sit with supv after pt resting laying across bed Transfers Transfer Comments: Multiple trials sit -- stand with max assist of 2 and varying hand placements aswell as with bed elevated. Unable to achieve full stance despite great effort from pt. Ended up completing slide board transfer bed - chair with min assist as pt was determined to get to chair. Type of ROM/Therapeutic Exercise Comment: Educated re: wheelchair pushups once pt in chair; pt completes 5 reps with good technique. Plan Plan Comment: Cont OT per POC Goals Short term goal 1: BSC transfer with slideboard PRN mod assist. --progressing Short term goal 2: Toileting min assist with compensatory strategies. --not addressed Short term goal 3: LB dressing with AE PRN and compensatory strategies min assist --progressing Short term goal 4: BUE strength 4+/5. --not addressed Therapy Time Individual Concurrent Group Co-treatment Time In 1044 Time Out 1114 Minutes 30 Timed Code Treatment Minutes: 30 Minutes(Funct--2) PAULA Zhang * Jas Worthy PA-C - 08/20/2020 10:46 AM EST Spoke to patient regarding the post operative plan. Discharge instructions and follow up were explained. We discussed the natural course of injury and expectations moving forward. Patient voiced their understanding and is agreeable with the current plan. All questions were answered. Patient was advised to contact our office with any questions or concerns. Jas Worthy PA-C Orthopedic Surgery * Nate Mcfarland MD - 08/20/2020 10:04 AM EST Images from the original note were not included. Hospitalist Progress Note 08/20/2020 10:05 AM [phone]: Please page me for patient care issues. [phone]: Please page [facility] night Hospitalist for any issues. Subjective: Admit Date: 08/15/2020 PCP: MARIANN URIAS CNP Room#: [id number]/[id number] Interval History: Patient seen and examined, I was wearing N95 mask throughout the patient encounter No new event overnight patient denies shortness of breath or chest pain. Passing flatus pain control. DIET GENERAL; No data found. Medications: enoxaparin 40 mg Subcutaneous Daily acetaminophen 1,000 mg Oral TID aspirin 81 mg Oral Daily atorvastatin 10 mg Oral Nightly cetirizine 10 mg Oral Daily sodium chloride flush 10 mL Intravenous 2 times per day clomiPHENE 25 mg Oral Daily pantoprazole 40 mg Oral QAM AC LABS: CBC: Recent Labs 08/20/20222 WBC 9.1 RBC 4.26* HGB 13.6 HCT 40.6 MCV 95.3 RDW 13.1 PLT 199 BMP: Recent Labs 08/20/20222 NA 136 K 4.1 CL 100 CO2 27 BUN 21* CREATININE 0.84 GLUCOSE 111* CALCIUM 8.2* ANIONGAP 8 LIVER PROFILE:No results for input(s): AST, ALT, BILITOT, ALKPHOS, LABALBU, PROT in the last 72 hours. PT/INR: Recent Labs 08/18/20221 PROTIME 10.5 INR 1.0 CARDIAC ENZYMES: No results for input(s): TROPONINI in the last 72 hours. Procalcitonin: No results found for: PROCAL Objective: Vitals: BP 124/80 Pulse 89 Temp 98 F (36.7 C) (Temporal) Resp 18 Ht 6' 2 (1.88 m) Wt (!)305 lb (138.3 kg) SpO2 95% BMI 39.16 kg/m Pulse Ox: SpO2 Av.5 % Min: 95 % Max: 96 % Supplemental O2: O2 Flow Rate (L/min): 4 L/min General appearance: No apparent distress, HEENT: Eyes: No scleral icterus No pallor Oral: Tongue is semi-moist Cardiovascular: S1S2 heard, RRR Respiratory: Clear to auscultation bilaterally Abdomen: Soft, non-tender, non-distended with normal bowel sounds. Musculoskeletal: No obvious deformities seen Skin: No visible rashes or lesions. Neurology- no focal neurology,Awake alert Extremity- no peripheral edema both lower extremities bilateral lower extremity dressing is seen Assessment Left ankle fracture right knee meniscal injury with patellar tendon rupture mechanical fall obstructive sleep apnea remote history of myocarditis gastroesophageal reflux disease Plan Orthopedic surgery consult following status Post Open reduction internal fixation of left trimalleolar ankle fracture without fixation of posterior lip ,Open reduction and internal fixation left syndesmosis disruption,Primary repair right patellar tendon rupture pain control PTOT evaluation recommended inpatient rehabilitation continue CPAP Lovenox for deep vein thrombosis prophylaxis Labs ordered for AM Patient was informed about all work up and treatment plan Discussed with nursing staff Advance Directive: Full Code Discharge planning: NATE MCFARLAND MD Division of Hospitalist Medicine Inpatient Medical Services PAGER: [phone] * Angela Lucas RCP - 08/19/2020 10:02 PM EST [facility] Respiratory Care Department Progress Note Patient was seen in attempts to fulfill CPAP/BiPAP/AutoPAP order. Patient refused PAP therapy/studyat this time. Patient was educated on medical need and reasoning for physician order to ensure patient was making an informed medical decision. All of the patient's questions were answered at this time and patient was informed that if the patient changes their mind regarding wearing PAP to hit their call light or inform their nurse to contact Respiratory. A second, consecutive night of refusing PAP therapy/study results in order completion in the EMR. If future CPAP/BiPAP/AutoPAP therapy or study is indicated please place another order in the EMR and the assigned Respiratory Therapist will reattempt to fulfill orders. Comment or reasoning for refusal: Thank you for involving Respiratory in the care of this patient, * Javier Mc, PT - 08/19/2020 4:15 PM EST Physical Therapy Facility/Department: [facility] Initial Assessment NAME: Mc Jorge : 1975 Date of Service: 08/19/2020 Discharge Recommendations: IP Rehab Assessment Body structures, Functions, Activity limitations: Decreased functional mobility ;Decreased high-level IADLs;Decreased ADL status;Decreased strength;Decreased balance;Decreased safe awareness;Increased pain;Decreased ROM;Decreased sensation Assessment: Admitted s/p fall from standing height. Pt reportedly slipped in rossy resulting in leftbimalleolar fx with right patellar tendon rupture. Underwent ORIF of left ankle with right patellartendon repair on 08/18. Pt [employer] WORKER was independent. Pt is NWB on LLE (ok for knee ROM) and WBAT on RLE (NO knee ROM). Pt requires 2 skilled therapist secondary to restrictions, weakness and inability to maintain NWB on LLE. Pt is motivated to get better. Pt will mostly like need raised surfaces to easetransfers. Goals set up for ambulation and wheelchair depending on progress. Pt not safe to go home. Recommend IP rehab. Prognosis: Good Decision Making: High Complexity PT Education: Goals;PT Role;Plan of Care;Weight-bearing Education;Precautions REQUIRES PT FOLLOW UP: Yes Activity Tolerance Activity Tolerance: Patient limited by fatigue;Patient limited by pain Patient Diagnosis(es): The primary encounter diagnosis was Closed fracture dislocation of left ankle, initial encounter. A diagnosis of Patellar tendon rupture, right, initial encounter was also pertinent to this visit. has a past medical history of GERD (gastroesophageal reflux disease), HLD (hyperlipidemia), Hyperparathyroidism (HCC), Hypertension, Hypogonadism in male, Myocarditis (HCC), Obesity, NEMESIO on CPAP, andSpasm. has a past surgical history that includes Cardiac catheterization (2013, 2001); Thyroidectomy, partial; parathyroidectomy; Ankle surgery (Left, 08/18/2020); and Patellar tendon repair (Right, 08/18/2020). Isela lift recommendation at this time for staff/patient safety Restrictions Restrictions/Precautions Restrictions/Precautions: Weight Bearing, Fall Risk, ROM Restrictions Required Braces or Orthoses?: Yes Lower Extremity Weight Bearing Restrictions Right Lower Extremity Weight Bearing: Weight Bearing As Tolerated(with knee immobilizer. NO knee ROM) Left Lower Extremity Weight Bearing: Non Weight Bearing(ok with LEFT knee ROM) Required Braces or Orthoses Right Lower Extremity Brace: Knee Immobilizer Left Lower Extremity Brace: (splint) Position Activity Restriction Other position/activity restrictions: activity as tolerated; ok for right ankle ROM Vision/Hearing Vision: Within Functional Limits Hearing: Within functional limits Subjective General Chart Reviewed: Yes Patient assessed for rehabilitation services?: Yes Additional Pertinent Hx: Admitted s/p fall from standing height. Pt reportedly slipped in rossy resulting in left bimalleolar fx with right patellar tendon rupture. Underwent ORIF of left ankle with right patellar tendon repair on 08/18. Family / Caregiver Present: Yes( geovanna) Follows Commands: Within Functional Limits Subjective Subjective: Pt agreeable for therapy. Pt pleasant and cooperative Pain Screening Patient Currently in Pain: Yes(states nerve block is wearing off on LLE) Vital Signs Patient Currently in Pain: Yes(states nerve block is wearing off on LLE) Orientation Orientation Overall Orientation Status: Within Normal Limits Social/Functional History Social/Functional History Lives With: Spouse, Son Type of Home: House Home Layout: Two level, Bed/Bath upstairs Home Access: Stairs to enter without rails Entrance Stairs - Number of Steps: 2 + 1 with full flight of steps to bed and bath Bathroom Shower/Tub: Tub/Shower unit Bathroom Toilet: Standard Bathroom Equipment: (n/a) Home Equipment: (n/a) ADL Assistance: Independent Homemaking Assistance: Independent Homemaking Responsibilities: Yes Ambulation Assistance: Independent Transfer Assistance: Independent Active 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 Cognition Cognition Overall Cognitive Status: WFL Objective Observation/Palpation Posture: Fair Observation: Splint on LLE distally, knee immobilizer on RLE AROM RLE (degrees) RLE General AROM: Minimal hip flexion/abduction/adduction, NO KNEE ROM, Ankle is WFL AROM LLE (degrees) LLE General AROM: Knee/hip is WFL; ankle NT Strength RLE Comment: Hip flexion/abduction/adduction is 2-/5, knee NT, ankle is 4+/5 Strength LLE Comment: Knee/hip is 4+/5, ankle NT Tone RLE RLE Tone: Normotonic Tone LLE LLE Tone: Normotonic Motor Control Gross Motor?: WNL Sensation Overall Sensation Status: (Reports LLE nerve block starting to go away, Able to feel great toe on left foot but diminished on 2-3rd) Bed mobility Supine to Sit: Moderate assistance;2 Person assistance Sit to Supine: Moderate assistance;2 Person assistance Scooting: Minimal assistance(Assist LLE to maintain NWB) Comment: 2 skilled therapist throughout. Cueing on NWB Transfers Sit to Stand: Maximum Assistance;2 Person Assistance Stand to sit: Maximum Assistance;2 Person Assistance Comment: Pt difficulty with RLE pushing into hip extension with NWB on LLE. Pt required 2 skilled therapist for 2 attempts from standing (low and higher surface). Unable to stand up. Pt required assist of LLE to maintain NWB Ambulation Ambulation?: No Balance Sitting - Static: Good Sitting - Dynamic: Fair;+ Standing - Static: Poor Standing - Dynamic: Poor Plan Plan Times per week: 5-7 Plan weeks: 2 weeks Current Treatment Recommendations: Strengthening, Transfer Training, Endurance Training, Neuromuscular Re-education, Patient/Caregiver Education & Training, Equipment Evaluation, Education, &procurement, Home Exercise Program, Safety Education & Training, Positioning, Functional Mobility Training, Balance Training, Gait Training, Wheelchair Mobility Training, ROM Plan Comment: Slide board if necessary Safety Devices Type of devices: Left in bed, All fall risk precautions in place, Patient at risk for falls, Call light within reach, Gait belt G-Code OutComes Score AM-PAC Score [facility] Inpatient Mobility Raw Score : 6 (08/19/201608) [facility] Inpatient T-Scale Score : 23.55 (08/19/201608) Mobility Inpatient CMS 0-100% Score: 100 (08/19/201608) Mobility Inpatient CMS G-Code Modifier : CN (08/19/201608) Goals Short term goals Time Frame for Short term goals: 2 weeks Short term goal 1: Bed mobility supervision x1 Short term goal 2: Transfers min assist x2 Short term goal 3: Ambulate 10' feet with FWW or axillary crutches with min assist x1 Short term goal 4: Slide board transfer with BUE/RLE with supervision x1 Short term goal 5: Propel wheelchair 150 feet x1 with BUE with supervision x1 Patient Goals Patient goals : to get better Therapy Time Individual Concurrent Group Co-treatment Time In 1351 Time Out 1414 Minutes 23 Co-eval with Shirlene (OT) Transfer Plan of care over to [facility] Physical Therapy staff. Goals and/or treatment plan was established in collaboration with pt/ This PT wore N95, gloves and goggles during session No Bed/chair alarm on prior to session and no alarm after session Mc Herrera PT * Shirlene Hernández OT - 08/19/2020 2:39 PM EST Occupational Therapy Occupational Therapy Initial Assessment Date: 08/19/2020 Patient Name: Mc Jorge : 1975 Date of Service: 08/19/2020 Discharge Recommendations: IP Rehab Assessment Performance deficits / Impairments: Decreased functional mobility ;Decreased balance;Decreased ADL status;Decreased endurance;Decreased high-level IADLs;Decreased strength Assessment: OT eval completed. Pt is well below baseline and will require intensive ADL re-trainingto maximize functional abilities. Previously indep. Limited to bed level ADLs at this time. Unable to come to full stand despite max assist x 2 persons. Pt is motivated. Recommending IPR with pt ableto tolerate 3 hours of therapy per day. Prognosis: Fair Decision Making: Medium Complexity OT Education: OT Role;Plan of Care;Precautions;ADL Adaptive Strategies;Transfer Training REQUIRES OT FOLLOW UP: Yes Activity Tolerance Activity Tolerance: Patient Tolerated treatment well Safety Devices Safety Devices in place: Yes Type of devices: Gait belt;Left in bed;Call light within reach(Left with present) Restraints Initially in place: No Patient Diagnosis(es): The primary encounter diagnosis was Closed fracture dislocation of left ankle, initial encounter. A diagnosis of Patellar tendon rupture, right, initial encounter was also pertinent to this visit. has a past medical history of GERD (gastroesophageal reflux disease), HLD (hyperlipidemia), Hyperparathyroidism (HCC), Hypertension, Hypogonadism in male, Myocarditis (HCC), Obesity, NEMESIO on CPAP, andSpasm. has a past surgical history that includes Cardiac catheterization (2013, 2001); Thyroidectomy, partial; parathyroidectomy; Ankle surgery (Left, 08/18/2020); and Patellar tendon repair (Right, 08/18/2020). Restrictions Restrictions/Precautions Restrictions/Precautions: Weight Bearing, Fall Risk, ROM Restrictions Required Braces or Orthoses?: Yes Lower Extremity Weight Bearing Restrictions Right Lower Extremity Weight Bearing: Weight Bearing As Tolerated(With knee immobilizer) Left Lower Extremity Weight Bearing: Non Weight Bearing Required Braces or Orthoses Right Lower Extremity Brace: Knee Immobilizer(Keep knee locked into extension) Left Lower Extremity Brace: (Splint) Subjective General Chart Reviewed: Yes Patient assessed for rehabilitation services?: Yes Family / Caregiver Present: Yes( present, agreeable to session with in room.) Diagnosis: Admitted s/p fall from standing height. Pt reportedly slipped in rossy resulting in left bimalleolar fx with right patellar tendon rupture. Underwent ORIF of left ankle with right patellar tendon repair on 08/18. General Comment Comments: Right handed male seen supine in bed. Motivated and pleasant throughout, agreeable to OT. Patient Currently in Pain: Yes(I think the nerve block is starting to wear off regarding LLE.) Social/Functional History Social/Functional History Lives With: Spouse, Son Type of Home: House Home Layout: Two level, Bed/Bath upstairs Home Access: Stairs to enter without rails Entrance Stairs - Number of Steps: 2 + 1 with full flight of steps to bed and bath Bathroom Shower/Tub: Tub/Shower unit Bathroom Toilet: Standard ADL Assistance: Independent Homemaking Assistance: Independent Homemaking Responsibilities: Yes Ambulation Assistance: Independent Transfer Assistance: Independent Active Occupational Nurse: Yes 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 Objective Vision: Within Functional Limits Hearing: Within functional limits Orientation Overall Orientation Status: Within Functional Limits Balance Sitting Balance: Supervision ADL LE Dressing: Dependent/Total Additional Comments: Total assist to don right sock. Limited due to knee immobilizer. Splint on LLE. Will require 2 person assist for all other LB self- care and at this time is limited to bed level. Tone RUE RUE Tone: Normotonic Tone LUE LUE Tone: Normotonic Coordination Movements Are Fluid And Coordinated: Yes Bed mobility Supine to Sit: Moderate assistance;2 Person assistance Sit to Supine: Moderate assistance;2 Person assistance Scooting: Minimal assistance(Assist to manage LLE to prevent weight bearing with scooting towards HOB.) Comment: Pt requires 2 skilled therapists throughout. Cues to maintain NWB to LLE. Transfers Sit to stand: Maximum assistance;2 Person assistance Stand to sit: Maximum assistance;2 Person assistance Transfer Comments: Pt requires 2 skilled therapists throughout. Initial trial pt unable to bring bottom off EOB. Subsequent trial with bed significantly elevated, only able to minimally clear bottom from EOB. Cognition Overall Cognitive Status: WFL Sensation Overall Sensation Status: WFL(BUE) LUE PROM (degrees) LUE PROM: WFL LUE AROM (degrees) LUE AROM : WFL RUE PROM (degrees) RUE PROM: WFL RUE AROM (degrees) RUE AROM : WFL LUE Strength Gross LUE Strength: Exceptions to WFL LUE Strength Comment: Grossly 4/5 throughout, good grasp. RUE Strength Gross RUE Strength: Exceptions to WFL RUE Strength Comment: Grossly 4/5 throughout, good grasp. Plan Plan Times per week: 5 x per week Plan weeks: 4 weeks AM-PAC Score AM-PAC Daily Activity Inpatient How much help for putting on and taking off regular lower body clothing?: Total How much help for Bathing?: A Lot How much help for Toileting?: Total How much help for putting on and taking off regular upper body clothing?: None How much help for taking care of personal grooming?: None How much help for eating meals?: None AM-PAC Inpatient Daily Activity Raw Score: 16 AM-[facility]AC Inpatient ADL T-Scale Score : 35.96 ADL Inpatient CMS 0-100% Score: 53.32 ADL Inpatient CMS G-Code Modifier : CK Goals Short term goals Time Frame for Short term goals: 4 weeks Short term goal 1: BSC transfer with slideboard PRN mod assist. Short term goal 2: Toileting min assist with compensatory strategies. Short term goal 3: LB dressing with AE PRN and compensatory strategies min assist. Short term goal 4: BUE strength 4+/5. Patient Goals Patient goals : Pt wants to go to rehab. Therapy Time Individual Concurrent Group Co-treatment Time In 1351 Time Out 1414 Minutes 23 Patient's Occupational Therapy Plan of Care supervision is transferred to [facility] Occupational Therapist. Goals and/or treatment plan was established in collaboration with patient/family/other representatives. This provider wore an N95 mask, goggles, and gloves for duration of session. Shirlene Hernández OTR/L * Nate Mcfarland MD - 08/19/2020 12:09 PM EST Images from the original note were not included. Hospitalist Progress Note 08/19/2020 12:09 PM [phone]: Please page me for patient care issues. [phone]: Please page [facility] night Hospitalist for any issues. Subjective: Admit Date: 08/15/2020 PCP: MARIANN URIAS CNP Room#: [id number] Interval History: Patient seen and examined, I was wearing N95 mask throughout the patient encounter No new event overnight patient lying in bed No shortness of breath or chest pain pain control. at bedside. DIET GENERAL; Patient Vitals for the past 96 hrs (Last 3 readings): Weight 08/15/20 1847 (!) 305 lb (138.3 kg) Medications: enoxaparin 40 mg Subcutaneous Daily acetaminophen 1,000 mg Oral TID aspirin 81 mg Oral Daily atorvastatin 10 mg Oral Nightly cetirizine 10 mg Oral Daily sodium chloride flush 10 mL Intravenous 2 times per day clomiPHENE 25 mg Oral Daily pantoprazole 40 mg Oral QAM AC LABS: CBC: Recent Labs 08/17/20 0125 WBC 9.3 RBC 4.33* HGB 13.8 HCT 41.1 MCV 94.8 RDW 13.4 PLT 189 BMP: Recent Labs 08/17/20 0125 NA 135 K 4.1 CL 102 CO2 23 BUN 16 CREATININE 0.86 GLUCOSE 115* CALCIUM 8.6 ANIONGAP 10 LIVER PROFILE:No results for input(s): AST, ALT, BILITOT, ALKPHOS, LABALBU, PROT in the last 72 hours. PT/INR: Recent Labs 08/18/20 0222 PROTIME 10.5 INR 1.0 CARDIAC ENZYMES: No results for input(s): TROPONINI in the last 72 hours. Procalcitonin: No results found for: PROCAL Objective: Vitals: BP 135/75 Pulse 88 Temp 98.4 F (36.9 C) (Temporal) Resp 18 Ht 6' 2 (1.88 m) Wt (!) 305 lb (138.3 kg) SpO2 96% BMI 39.16 kg/m Pulse Ox: SpO2 Av.5 % Min: 93 % Max: 96 % Supplemental O2: O2 Flow Rate (L/min): 4 L/min General appearance: No apparent distress, HEENT: Eyes: No scleral icterus No pallor Oral: Tongue is semi-moist Cardiovascular: S1S2 heard, RRR Respiratory: Clear to auscultation bilaterally Abdomen: Soft, non-tender, non-distended with normal bowel sounds. Musculoskeletal: No obvious deformities seen Skin: No visible rashes or lesions. Neurology- no focal neurology,Awake alert Extremity- no peripheral edema both lower extremities bilateral lower extremity dressing is seen Assessment Left ankle fracture right knee meniscal injury with patellar tendon rupture mechanical fall obstructive sleep apnea remote history of myocarditis gastroesophageal reflux disease Plan Orthopedic surgery consult following status Post Open reduction internal fixation of left trimalleolar ankle fracture without fixation of posterior lip ,Open reduction and internal fixation left syndesmosis disruption,Primary repair right patellar tendon rupture pain control PTOT evaluation pending continue CPAP Lovenox for deep vein thrombosis prophylaxis Labs ordered for AM Patient was informed about all work up and treatment plan Discussed with nursing staff Advance Directive: Full Code Discharge planning: NATE MCFARLAND MD Division of Hospitalist Medicine Inpatient Medical Services PAGER: [phone] * Kirt Dugan MD - 08/19/2020 6:03 AM EST Department of Orthopedic Surgery Progress Note SUBJECTIVE: No complaints OBJECTIVE: General: alert and oriented to person, place and time, well-developed and well- nourished, in no acute distress VITALS: BP 135/75 Pulse 88 Temp 98.4 F (36.9 C) (Temporal) Resp 18 Ht 6' 2 (1.88 m) Wt (!) 305 lb (138.3 kg) SpO2 96% BMI 39.16 kg/m MSK exam: LLE: No sensation or motor due to nerve block Good CR <3 sec all digits Splint CDI RLE: Knee immobilizer intact Dressings CDI +DF/EHL/PF SILT +pulses Labs: CBC: Lab Results Component Value Date WBC 9.3 08/17/2020 RBC 4.33 08/17/2020 HGB 13.8 08/17/2020 HCT 41.1 08/17/2020 MCV 94.8 08/17/2020 MCH 31.8 08/17/2020 MCHC 33.6 08/17/2020 RDW 13.4 08/17/2020 PLT 189 08/17/2020 MPV 9.6 08/17/2020 ASSESSMENT AND PLAN: A/P: This is a 45 y.o. male s/p Left trimal ORIF and Right patellar tendon repair on 08/18: Non-weight bearing in splint on left WBAT on right with knee locked into extension No ROM right knee until first post op visit. Complete perioperative abx today Pain control per 1 DVT ppx per 1 Follow-up in 2wks in office Ok for dc from ortho standpoint pending PT eval for crutches. * Jesenia Haas RCP - 08/18/2020 9:44 PM EST [facility] Respiratory Care Department Progress Note Patient was seen in attempts to fulfill CPAP/BiPAP/AutoPAP order. Patient refused PAP therapy/studyat this time. Patient was educated on medical need and reasoning for physician order to ensure patient was making an informed medical decision. All of the patient's questions were answered at this time and patient was informed that if the patient changes their mind regarding wearing PAP to hit their call light or inform their nurse to contact Respiratory. A second, consecutive night of refusing PAP therapy/study results in order completion in the EMR. If future CPAP/BiPAP/AutoPAP therapy or study is indicated please place another order in the EMR and the assigned Respiratory Therapist will reattempt to fulfill orders. Comment or reasoning for refusal: Pt states he does not wish to wear pap tonight. He does have a home unit and he goes back and forth on wearing it. Pap not discontinued at this time as he states he might wear it tomorrow night Thank you for involving Respiratory in the care of this patient, * Nate Mcfarland MD - 08/18/2020 3:02 PM EST Images from the original note were not included. Hospitalist Progress Note 08/18/2020 3:02 PM [phone]: Please page me for patient care issues. [phone]: Please page [facility] night Hospitalist for any issues. Subjective: Admit Date: 08/15/2020 PCP: MARIANN URIAS CNP Room#: [id number] Interval History: Patient seen and examined, I was wearing N95 mask throughout the patient encounter No new event overnight patient back from surgery. No shortness of breath or chest pain Post Open reduction internal fixation of left trimalleolar ankle fracture without fixation of posterior lip ,Open reduction and internal fixation left syndesmosis disruption,Primary repair right patellar tendon rupture DIET GENERAL; Patient Vitals for the past 96 hrs (Last 3 readings): Weight 08/15/20 1847 (!) 305 lb (138.3 kg) Medications: ceFAZolin 3,000 mg Intravenous Q8H acetaminophen 1,000 mg Oral TID aspirin 81 mg Oral Daily atorvastatin 10 mg Oral Nightly cetirizine 10 mg Oral Daily sodium chloride flush 10 mL Intravenous 2 times per day clomiPHENE 25 mg Oral Daily pantoprazole 40 mg Oral QAM AC LABS: CBC: Recent Labs 08/17/20 0125 WBC 9.3 RBC 4.33* HGB 13.8 HCT 41.1 MCV 94.8 RDW 13.4 PLT 189 BMP: Recent Labs 08/17/20 0125 NA 135 K 4.1 CL 102 CO2 23 BUN 16 CREATININE 0.86 GLUCOSE 115* CALCIUM 8.6 ANIONGAP 10 LIVER PROFILE:No results for input(s): AST, ALT, BILITOT, ALKPHOS, LABALBU, PROT in the last 72 hours. PT/INR: Recent Labs 08/18/20 0222 PROTIME 10.5 INR 1.0 CARDIAC ENZYMES: No results for input(s): TROPONINI in the last 72 hours. Procalcitonin: No results found for: PROCAL Objective: Vitals: BP (!) 137/93 Pulse 110 Temp 97.4 F (36.3 C) (Temporal) Resp 18 Ht 6' 2 (1.88 m) Wt (!) 305 lb (138.3 kg) SpO2 94% BMI 39.16 kg/m Pulse Ox: SpO2 Av.5 % Min: 93 % Max: 100 % Supplemental O2: O2 Flow Rate (L/min): 4 L/min General appearance: No apparent distress, HEENT: Eyes: No scleral icterus No pallor Oral: Tongue is semi-moist Cardiovascular: S1S2 heard, RRR Respiratory: Clear to auscultation bilaterally Abdomen: Soft, non-tender, non-distended with normal bowel sounds. Musculoskeletal: No obvious deformities seen Skin: No visible rashes or lesions. Neurology- no focal neurology,Awake alert Extremity- no peripheral edema both lower extremities bilateral lower extremity dressing is seen Assessment Left ankle fracture right knee meniscal injury with patellar tendon rupture mechanical fall obstructive sleep apnea remote history of myocarditis gastroesophageal reflux disease Plan Orthopedic surgery consult following Post Open reduction internal fixation of left trimalleolar ankle fracture without fixation of posterior lip ,Open reduction and internal fixation left syndesmosis disruption,Primary repair right patellar tendon rupture pain control PTOT evaluation continue CPAP Lovenox for deep vein thrombosis prophylaxis once okay with surgery Labs ordered for AM Patient was informed about all work up and treatment plan Discussed with nursing staff Advance Directive: Full Code Discharge planning: NATE MCFARLAND MD [facility] PAGER: [phone] * Yamilet Mari RN - 08/18/2020 12:00 PM EST Ortho resident paged to add non weight bearing status for the floor d/t block right leg Y * Yamilet Mari RN - 08/18/2020 11:49 AM EST Block team at beside and doing block @ 1149 * Yamilet Mari RN - 08/18/2020 11:42 AM EST Pt crying out in pain in between falling asleep and having apneic episodes, Ortho resident returned paged at 1110, will call back after discussing with Dr Smith. RN paged ortho resident again @ [address] smith to block again on R leg Block team paged to come to bedside for fem block @ 1144 Yamilet Tolentino RN - 08/18/2020 11:17 AM EST Ortho resident paged Yamilet Erickson RN - 08/18/2020 11:02 AM EST Block team paged To come reassess pt for pain concerns * Yamilet Mari RN - 08/18/2020 10:12 AM EST Nasal airway removed 1005, pt apenic Pulse ox dropped to 82% no Improvement when placed on NC 4L, new nasal Airway placed- pulse ox improved to 97% with 4L NC and nasal airway * Yamilet Mari RN - 08/18/2020 10:07 AM EST Pt's called at home and given OPERATOR ENGINEER update, informed pt returning to previous room [id number]- Trish [phone] * King Lockwood MD - 08/18/2020 6:05 AM EST Images from the original note were not included. [facility] [address] [facility] [address] [place] [address] Dept: [phone] Loc: [phone] Orthopedic Progress Note Name: Mc Jorge Date:08/18/2020 Attending:Colton Pineda MD Subjective Resting comfortably. Understands plans for surgery today Objective Vitals: Vitals: 08/16/20 2132 08/17/20 0427 08/17/20 1747 08/18/20 0523 BP: (!) 149/81 121/84 118/82 Pulse: 92 97 85 Resp: 18 16 18 18 Temp: 98.6 F (37 C) 98.1 F (36.7 C) 98.5 F (36.9 C) TempSrc: Temporal Temporal Temporal SpO2: 96% 96% 100% Weight: Height: Physical Exam: General: NAD LLE Dressing/Splint: Clean/Dry/Intact Sensation intact in toes Motor: + toe wiggle Toes warm and well perfused RLE Dressing/Skin: Clean/Dry/Intact under knee immobilizer; swelling about knee, but no open lesions ofthe skin SILT: Saphenous/Superficial Peroneal/Deep Peroneal/Tibial/Sural distributions Motor: +Dorsiflexion/Plantarflexion/Great toe extension Pulses: Palpable DP LABS: Recent Labs 08/17/20 0125 WBC 9.3 HGB 13.8 HCT 41.1 PLT 189 Recent Labs 08/17/20 0125 NA 135 K 4.1 CL 102 CO2 23 BUN 16 CREATININE 0.86 CALCIUM 8.6 Recent Labs 08/18/20 0222 INR 1.0 No results for input(s): SEDRATE, CRP in the last 72 hours. No results for input(s): HCG in the last 72 hours. Assessment Mc is a 45 y.o.male w/ L ankle fx and R Patella Tendon rupture Plan -Plan for OR 08/18 (today) with Dr. Smith for ORIF L ankle & R patellar tendon repair -NPO -labs obtained -Cleared -Consented (on chart); BLE signed -Ice & elevate -Keep splint c/d/I, skin checks around splint -Keep knee immobilizer on RLE when up, ok to unstrap when laying in bed -Neurovascular checks -NWB bilateral lower extremities -Ortho to follow King Lockwood MD PGY-2 Orthopaedic Surgery [id number] 08/18/2020 6:12 AM * Kamari Sin, [facility] - 08/17/2020 9:07 PM EST [facility] Respiratory Care Department Progress Note Patient was seen in attempts to fulfill CPAP/BiPAP/AutoPAP order. Patient refused PAP therapy/studyat this time. Patient was educated on medical need and reasoning for physician order to ensure patient was making an informed medical decision. All of the patient's questions were answered at this time and patient was informed that if the patient changes their mind regarding wearing PAP to hit their call light or inform their nurse to contact Respiratory. A second, consecutive night of refusing PAP therapy/study results in order completion in the EMR. If future CPAP/BiPAP/AutoPAP therapy or study is indicated please place another order in the EMR and the assigned Respiratory Therapist will reattempt to fulfill orders. Comment or reasoning for refusal: pt states he only briefly wore last night, doesn't think that he needs it tonight. Educated on benefits, still refused Thank you for involving Respiratory in the care of this patient, * Nate Mcfarland MD - 08/17/2020 11:37 AM EST Images from the original note were not included. Hospitalist Progress Note 08/17/2020 11:37 AM [phone]: Please page me for patient care issues. [phone]: Please page [facility] Hospitalist for any issues. Subjective: Admit Date: 08/15/2020 PCP: MARIANN URIAS [facility] Room#: [id number] Interval History: Patient seen and examined, I was wearing N95 mask throughout the patient encounter No new event overnight patient feeling sleepy with pain medication. No shortness of breath or chest pain DIET GENERAL; Diet NPO, After Midnight Exceptions are: Sips of Water with Meds Patient Vitals for the past 96 hrs (Last 3 readings): Weight 08/15/20 1847 (!) 305 lb (138.3 kg) Medications: acetaminophen 1,000 mg Oral TID aspirin 81 mg Oral Daily atorvastatin 10 mg Oral Nightly cetirizine 10 mg Oral Daily sodium chloride flush 10 mL Intravenous 2 times per day clomiPHENE 25 mg Oral Daily pantoprazole 40 mg Oral QAM AC LABS: CBC: Recent Labs 08/17/20 0125 WBC 9.3 RBC 4.33* HGB 13.8 HCT 41.1 MCV 94.8 RDW 13.4 PLT 189 BMP: Recent Labs 08/17/20 0125 NA 135 K 4.1 CL 102 CO2 23 BUN 16 CREATININE 0.86 GLUCOSE 115* CALCIUM 8.6 ANIONGAP 10 LIVER PROFILE:No results for input(s): AST, ALT, BILITOT, ALKPHOS, LABALBU, PROT in the last 72 hours. PT/INR: No results for input(s): PROTIME, INR in the last 72 hours. CARDIAC ENZYMES: No results for input(s): TROPONINI in the last 72 hours. Procalcitonin: No results found for: PROCAL Objective: Vitals: BP (!) 149/81 Pulse 92 Temp 98.6 F (37 C) (Temporal) Resp 16 Ht 6' 2 (1.88 m) Wt(!) 305 lb (138.3 kg) SpO2 96% BMI 39.16 kg/m Pulse Ox: SpO2 Av.7 % Min: 96 % Max: 100 % Supplemental O2: O2 Flow Rate (L/min): 0 L/min General appearance: No apparent distress, HEENT: Eyes: No scleral icterus No pallor Oral: Tongue is semi-moist Cardiovascular: S1S2 heard, RRR Respiratory: Clear to auscultation bilaterally Decrease breath sound both bases Bilateral expiratory wheeze posteriorly Abdomen: Soft, non-tender, non-distended with normal bowel sounds. Musculoskeletal: No obvious deformities seen Skin: No visible rashes or lesions. Neurology- no focal neurology,Awake alert Extremity- no peripheral edema both lower extremities Assessment Left ankle fracture right knee meniscal injury with patellar tendon rupture mechanical fall obstructive sleep apnea remote history of myocarditis gastroesophageal reflux disease Plan Orthopedic surgery consult following for surgical fixation of the right patellar tendon and open reduction internal fixation of left ankle fracture tomorrow n.p.o. midnight pain controlled no chemical deep vein thrombosis prophylaxis with anticipation for surgery Labs ordered for AM Patient was informed about all work up and treatment plan Discussed with nursing staff Advance Directive: Full Code Discharge planning: NATE MCFARLAND MD Division of Hospitalist Medicine Inpatient Medical Services PAGER: [phone] * Jennifer Lau DTR - 08/17/2020 10:52 AM EST Nutrition rescreen completed. Chart reviewed. Patient to be monitored and followed by the diet cephalometric technician. * Lali Grace MD - 08/16/2020 7:46 PM EST Nurse paged ortho as patient concerned splint felt too tight. Evaluated patient at bedside, by the time I arrived he said it felt better. Was feeling some discomfort over his lateral ankle. He was in no distress during exam. No pain with passive stretch of toes. +SILT and wiggle of toes. No concerns at this time. Encouraged patient to continue ice and elevation. * Narayan Lubin MD - 08/16/2020 3:16 PM EST Plan for surgery Friday 08/18. NPO @WA. Patient updated. * Narayan Lubin MD - 08/16/2020 2:55 PM EST To bedside to discuss magnetic resonance imaging results on the right knee. Magnetic resonance imaging consistent with full-thickness patella tendon rupture midsubstance. Due to the nature that patient is unable to extend his knee recommend operative fixation of the right patella tendon. Risks benefits and alternatives to treatment were discussed. Mc may need placementfollowing surgery due to need for nonweightbearing on left ankle as well as knee immobilizer to right knee. Consent signed. N.p.o. at midnight tonight for surgery tomorrow versus Sunday plan for ORIF left ankle and patella tendon repair left knee. documented in this encounter Chief Complaint and Reason for Visit Chief Complaint Admit Date Melanoma January 01, 2025 10:5 2am Additional Source Comments (unrecognized sect ion and content) No Status Records FoundNo Status Records FoundNo Status Records FoundNo Status Records FoundNo Status Records FoundNo Status Records FoundNo Status Records FoundNo Status Records Found INFORMATION SOURCE (unrecogn ized section and content) DATE CREATED AUTHOR 12/11/2017 [facility] [employer] DATE CREATED AUTHOR AUTHOR'S ORGANIZ ATION 09/27/2018 [facility] teressa [place] DATE CREATED AUTHOR AUTHOR'S ORGANIZ ATION 08/15/2020 [facility] DATE CREATED AUTHOR AUTHOR'S ORGANIZ ATION 11/30/2020 [facility] DATE CREATED AUTHOR AUTHOR'S ORGANIZ ATION 12/30/2022 [facility] DATE CREATED AUTHOR AUTHOR'S ORGANIZ ATION 05/01/2023 [facility] DATE CREATED AUTHOR AUTHOR'S ORGANIZ ATION 04/02/2024 [facility] DATE CREATED AUTHOR AUTHOR'S ORGANIZ ATION 01/04/[address] [facility] Source Comments (unrecognize d section and content) In the event this informatio n is protected by the Federal Confidentiality of Alcohol and Drug Abuse Patient Records regulations: The Federal rules restrict any use of the information to criminally investigate or prosecute any alcohol or drug abuse patient.[facility] the event this information is protected by the Federal Confidentiality of Alcohol and Drug Abuse Patient Records regulations: The Federal rules restrict any use of the information to criminally investigate or prosecute any alcohol or drug abuse patient.[facility] the event this information is protected by the Federal Confidentiality of Alcohol and Drug Abuse Patient Records regulations: The Federal rules restrict any use of the information to criminally investigate or prosecute any alcohol or drug abuse patient.[facility] Reason for Visit (unrecogniz ed section and content) Reason Comments Ankle Pain Reason Comments Sore Throat States he feels like he has a coating on his throat and tongue. Headache Reason Comments Cough Coughing up yellow m ucus for 1 week Sinusitis Chest congestion fac e pressure drainage for 1 week Sore Throat Sore throat hard to swallow for 1 week Ordered Prescriptions (unrec ognized section and content) Prescription Sig Dispensed Refills Start Date End Da te enoxaparin (LOVENOX) 40 MG/0.4ML injection Inject 0.4 mLs into the skin daily for 14 days 20 Syringe 3 08/24/2020 09/07/2020 ibuprofen (ADVIL;MOTRIN) 200 MG tablet Take 1 tablet by mouth every 6 hours as needed for Pain 120 tablet 3 08/23/2020 oxyCODONE (ROXICODONE) 5 MG immediate release tabletIndications:Closed fracture dislocation of left ankle, initial encounter Take 1 tablet by mouth every 4 hours as needed for Pain for up to 3 days. 20 tablet 0 08/23/2020 08/26/2020 Care Teams (unrecognized sec tion and content) Back Shoe Worker Relationship Specialty Start Date End Date Lynette Figueroa (Dermatology Nurse) [address] [place] [address] PCP - General Internal Medicine 01/04/17 Fernie León [address] [facility] [address] [place] [address] Physician Gastroenterology 01/04/17 Logan Stock MD [address] [facility] [facility] [address] [place] [address] Cardiology 01/04/17 Back Shoe Worker Relationship Specialty Start Date End Date Lynette Figueroa (Dermatology Nurse) [address] [place] [id number] PCP - General Internal Medicine 01/04/17 Fernie León [address] [facility] [address] [place] [address] Physician Gastroenterology 01/04/17 Logan Stock MD [address] [place] [address] Cardiology 01/04/17 Team Status: Inactive Member Role/Relationship Status Dates Dr. Toby Arita MD Attending Provider Active Start: January 01, 2025 End: January 01, 2025 Team Status: Inactive Member Role/Relationship Status Dates Dr. Toby Arita MD Attending Provider Active Start: February 03, 2025 End: February 03, 2025 Goals (unrecognized section and content) Goals may be documented in a n alternate sectionGoals may be documented in an alternate section FOR RECORDS PERTAINING TO PATIENTS WHO ARE OR HAVE BEEN ENROLLED IN A CHEMICAL DEPENDENCY/SUBSTANCEABUSE PROGRAM, SOME INFORMATION MAY BE OMITTED. This clinical summary was aggregated from multiple sources. Caution should be exercised in using it in the provision of clinical care. This summary normalizes information from multiple sources, and as a consequence, information in this document may materially change the coding, format and clinical context of patient data. In addition, data may be omitted in some cases. CLINICAL DECISIONS SHOULD BE BASED ON THE PRIMARY CLINICAL RECORDS. [employer] provides no warranty or guarantee of the accuracy or completeness of information in this document.
== END | disposition home or self-care (01) ==
LOC: LABSPEC 12:55
PROVIDERS: Referring Provider Surgery Plastic and Reconstructive Surgery; Visit Provider Surgery Plastic and Reconstructive Surgery
DX: D03.9 Melanoma in situ, unspecified (principal)
CPT/HCPCS: 88305